=== PATIENT | female | born 1950 | race Caucasian/White ===

== ENCOUNTER 2022-02-19 10:30 | Outpatient (REF) | payer MEDICARE, SELFPAY ==
[2022-02-19 14:09] LABS: Appearance Urine HAZY; Color Urine YELLOW; Glucose Urine UA 500 MG/DL (NEG); Leukocyte Esterase Urine 1+ (NEG); Nitrite Urine POS (NEG); Specific Gravity - Urine 1.015 (1.005-1.025); Urine Blood NEG (NEG); Urine Ketones NEG (NEG); Urine Protein NEG (NEG-TRACE)
[2022-02-19 14:19] LABS: Microalbum/Creatinine Ratio Ur 115.8 ug/mg cr; Protein/Creatinine Ratio, Ur 0.23 (<0.2); Total Protein Urine Random 20 mg/dL (<12)
[2022-02-19 14:24] LABS: Hematocrit 43.9 % (37.0-47.0); Hemoglobin 13.8 g/dl (12.0-16.0); Mean Corpuscular HGB Conc 31.4 g/dl (31.0-35.0); Mean Corpuscular Hemoglobin 26.7 pg (27.0-33.0); Mean Corpuscular Volume 85.1 fL (80.0-98.0); Mean Platelet Volume 9.8 fL (9.4-12.3); Platelet Count 287 X10*3/uL (160-400); Red Blood Count 5.16 X10*6/uL (4.20-5.50); Red Cell Distribution Width 15.2 % (11.0-16.0); White Blood Count 7.7 X10*3/uL (4.8-10.8)
[2022-02-19 14:28] LABS: Albumin Level 4.5 g/dL (3.5-5.0); Anion Gap 17 (12-20); Blood Urea Nitrogen 32 mg/dL (9-16); Calcium 9.2 mg/dL (8.4-10.2); Carbon Dioxide 22 mmol/L (22-29); Chloride 104 mmol/L (96-108); Estimated Average Glucose 180 mg/dL; Estimated Glomerular Filt Rate 30; Hemoglobin A1c % 7.9 %; Magnesium 1.8 mg/dL (1.6-2.6); Phosphorus 3.3 mg/dL (2.7-4.5); Potassium 4.3 mmol/L (3.3-5.1); Sodium 139 mmol/L (135-145)
[2022-02-19 14:28] LABS: Bacteria Urine 4+ /LPF; Squamous Epithelial Cell Urine 1+ /LPF
[2022-02-19 14:29] LABS: RBC Urine 0 /HPF (0)
[2022-02-19 14:35] LABS: Alanine Aminotransferase 22 U/L (0-31); Albumin Level 4.5 g/dL (3.5-5.0); Alkaline Phosphatase 66 U/L (39-117); Anion Gap 16 (12-20); Aspartate Amino Transferase 19 U/L (5-31); Bilirubin Total 0.5 mg/dL (0.0-1.0); Blood Urea Nitrogen 31 mg/dL (9-16); Calcium 9.1 mg/dL (8.4-10.2); Carbon Dioxide 23 mmol/L (22-29); Chloride 105 mmol/L (96-108); Cholesterol 150 mg/dL; Estimated Glomerular Filt Rate 29; Glucose Random 114 mg/dL (60-115); HDL Cholesterol 43 mg/dL; LDL Cholesterol Calculated 74 mg/dl; Potassium 4.3 mmol/L (3.3-5.1); Sodium 140 mmol/L (135-145); Total Protein 7.8 g/dL (6.5-8.0); Triglycerides 167 mg/dL
[2022-02-19 14:59] LABS: Thyroid Stimulating Hormone 7.63 uIU/mL (0.32-4.0); Vitamin D 25-OH Total 60.7 ng/mL (>30)
[2022-02-22 20:16] LABS: Calcium (PTHI) 9.8 mg/dL (8.6-10.4); PTHI 84 pg/mL (16-77)
== END 2022-02-19 10:31 | disposition home or self-care (01) ==
LOC: HO.HMGCLDS 10:30
PROVIDERS: Absent Provider Internal Medicine Nephrology; PCP Internal Medicine; Visit Provider Internal Medicine
DX: E03.8 Other specified hypothyroidism (principal); E11.65 Type 2 diabetes mellitus with hyperglycemia; E11.22 Type 2 diabetes mellitus with diabetic chronic kidney disease; I12.9 Hypertensive chronic kidney disease with stage 1 through stage 4 chronic kidney disease, or unspecified chronic kidney disease; N18.32 Chronic kidney disease, stage 3b; E78.00 Pure hypercholesterolemia, unspecified; G56.03 Carpal tunnel syndrome, bilateral upper limbs; E11.51 Type 2 diabetes mellitus with diabetic peripheral angiopathy without gangrene; N25.0 Renal osteodystrophy
CPT/HCPCS: 36415; 80051; 80053; 80061; 81001; 82040; 82043; 82306; 82310; 82565; 83036; 83735; 83970; 84100; 84156; 84443; 84520; 85027; 87086

== ENCOUNTER 2022-04-26 11:07 | Outpatient (REF) | payer MEDICARE, SELFPAY ==
[2022-04-26 13:30] LABS: MANUAL DIFF FLAG NO
[2022-04-26 13:37] LABS: Basophils Absolute Auto 0.1 X10*3/uL (0.0-0.2); Basophils Percent Auto 0.9 % (0-2); Eosinophils Absolute Auto 0.1 X10*3/uL (0.0-0.4); Eosinophils Percent Auto 1.8 % (0-4); Hematocrit 43.9 % (37.0-47.0); Hemoglobin 13.9 g/dl (12.0-16.0); Imm Gran Abs Auto 0.03 X10*3/uL (0.00-0.03); Imm Gran Pct Auto 0.4 % (0.0-0.4); Lymphocytes Absolute Auto 1.7 X10*3/uL (1.2-4.9); Lymphocytes Percent Auto 23.2 % (20-40); Mean Corpuscular HGB Conc 31.7 g/dl (31.0-35.0); Mean Corpuscular Volume 85.2 fL (80.0-98.0); Mean Platelet Volume 9.9 fL (9.4-12.3); Monocytes Absolute Auto 0.7 X10*3/uL (0.1-1.2); Monocytes Percent Auto 9.2 % (2-11); Neutrophils Absolute Auto 4.8 x10*3/uL (2.0-8.3); Neutrophils Percent Auto 64.5 % (45-73); Platelet Count 256 X10*3/uL (160-400); Red Blood Count 5.15 X10*6/uL (4.20-5.50); Red Cell Distribution Width 14.8 % (11.0-16.0); White Blood Count 7.4 X10*3/uL (4.8-10.8)
[2022-04-26 13:59] LABS: Estimated Average Glucose 180 mg/dL; Hemoglobin A1c % 7.9 %
[2022-04-26 14:18] LABS: Alanine Aminotransferase 26 U/L (0-31); Albumin Level 4.5 g/dL (3.5-5.0); Alkaline Phosphatase 61 U/L (39-117); Anion Gap 21 (12-20); Aspartate Amino Transferase 30 U/L (5-31); Bilirubin Total 0.4 mg/dL (0.0-1.0); Blood Urea Nitrogen 37 mg/dL (9-16); Calcium 9.9 mg/dL (8.4-10.2); Carbon Dioxide 22 mmol/L (22-29); Chloride 101 mmol/L (96-108); Estimated Glomerular Filt Rate 28; Glucose Random 121 mg/dL (60-115); Potassium 4.6 mmol/L (3.3-5.1); Sodium 139 mmol/L (135-145); Total Protein 7.9 g/dL (6.5-8.0)
[2022-04-26 14:24] LABS: Thyroid Stimulating Hormone 6.37 uIU/mL (0.32-4.0)
[2022-04-26 14:25] LABS: Vitamin B12 533 pg/mL (200-900)
== END 2022-04-26 11:08 | disposition home or self-care (01) ==
LOC: HO.10HDL 11:07
PROVIDERS: Visit Provider Internal Medicine
DX: Z00.01 Encounter for general adult medical examination with abnormal findings (principal); E78.00 Pure hypercholesterolemia, unspecified; I12.9 Hypertensive chronic kidney disease with stage 1 through stage 4 chronic kidney disease, or unspecified chronic kidney disease; E11.22 Type 2 diabetes mellitus with diabetic chronic kidney disease; N18.9 Chronic kidney disease, unspecified; E03.8 Other specified hypothyroidism
CPT/HCPCS: 36415; 80053; 82607; 83036; 84443; 85025

== ENCOUNTER 2022-06-10 11:26 | Outpatient (REF) | payer MEDICARE, SELFPAY ==
--- NOTE | 2022-06-10 08:00 | EMG_ITS ---
Bilateral median and ulnar motor and sensory studies were performed. Bilateral radial sensory studies were performed and paraspinal muscles were tested with a needle. IMPRESSION: 1. [id number] bilateral median neuropathy across carpal tunnel. 2. 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 MD THUY Mc/PATRICIA / [id number]
== END 2022-06-10 11:27 | disposition home or self-care (01) ==
LOC: HO.NEURO 11:26
PROVIDERS: PCP Internal Medicine; Visit Provider Internal Medicine
DX: G56.03 Carpal tunnel syndrome, bilateral upper limbs (principal)
CPT/HCPCS: 95886; 95911

== ENCOUNTER → 2022-08-24 10:39 | Outpatient (BNVA) | payer MEDICARE, SELFPAY | PROVIDERS: PCP Internal Medicine; Visit Provider Orthopaedic Surgery | DX: G56.03 Carpal tunnel syndrome, bilateral upper limbs (principal); G56.23 Lesion of ulnar nerve, bilateral upper limbs; E11.9 Type 2 diabetes mellitus without complications | CPT/HCPCS: 99202 ==

== ENCOUNTER → 2022-09-28 14:38 | Outpatient (BNVA) | payer MEDICARE, SELFPAY | PROVIDERS: PCP Internal Medicine; Visit Provider Orthopaedic Surgery | DX: G56.03 Carpal tunnel syndrome, bilateral upper limbs (principal); G56.23 Lesion of ulnar nerve, bilateral upper limbs; E11.9 Type 2 diabetes mellitus without complications | CPT/HCPCS: 99212 ==

== ENCOUNTER 2022-10-01 05:56 | Day surgery (SDC) | payer MEDICARE, SELFPAY ==
[2022-10-01] VITALS (7 sets, daily range): BP systolic 103–174; BP diastolic 47–61; PULSE 56–59; RESP 16–18; TEMP 36.7–36.8; O2SAT 95–98; BMI 38.0
[2022-10-01 06:12] LABS: Glucose, Whole Blood 137 mg/dL (60-115)
--- NOTE | 2022-10-01 07:25 | HO.ANESPROP2 ---
HPI - Anesthesia Eval Consult details Narrative: morbid obesity, cubital tunnel release PMFSH Active Problems Active Problems: All Active Problems (Updated 08/24/22 @ 11:47 by Jacob Garcia) Diabetes mellitus (Acute) Cubital tunnel syndrome on right (Acute) Cubital tunnel syndrome on left (Acute) Carpal tunnel syndrome of right wrist (Acute) Carpal tunnel syndrome of left wrist (Acute) Past Medical History Medical History Diabetes Dry eyes High blood pressure High cholesterol Hx of thyroid disease Kidney disease Family History Family history of problems with anesthesia: No Surgical History History of Problems with Anesthesia: No Social History Social History Patient Tobacco Use Status: Never used Tobacco Are you DNR?: No Advance Directives: No Advance Directives Information Provided: Yes Nutrition Risks: No Nutritional Risk Current occupational status: retired and disabled 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 Meds Allergies Allergy/AdvReac Type Severity Reaction Status Date / Time codeine [CODEINE] Allergy Intermediate DIAPHORESIS/N/V/DIFFICULTY Verified 10/01/22 06:38 BREATHING/HIVES Penicillins [PENICILLINS] Allergy Intermediate RASH Verified 10/01/22 06:38 /ITCH/DIFFICULTY BREATHING Sulfa (Sulfonamide Allergy Intermediate RASH/ITCH/DIFFICULTY Verified 10/01/22 06:38 Antibiotics) BREATHING [SULFA (SULFONAMIDE ANTIBIOTICS)] Home Medications Medication Instructions Recorded Confirmed Last Taken Type aspirin 81 mg tablet,delayed 81 mg PO DAILY 08/24/22 10/01/22 History release (Adult Low Dose Aspirin) atorvastatin 20 mg tablet 20 mg PO DAILY 08/24/22 10/01/22 History chlorthalidone 25 mg tablet 25 mg PO DAILY 08/24/22 Unknown History dapagliflozin 5 mg tablet (Farxiga) mg PO 08/24/22 Unknown History gabapentin 300 mg capsule mg PO 08/24/22 10/01/22 History insulin lispro 100 unit/mL subcut 08/24/22 Unknown History subcutaneous pen (Humalog KwikPen (U-100) Insulin) latanoprost 0.005 % eye drops 0 drp ophthalmic (eye) 08/24/22 10/01/22 History levothyroxine 112 mcg tablet 112 mcg PO DAILY 08/24/22 10/01/22 History losartan 50 mg tablet 50 mg PO BID 08/24/22 Unknown History metoprolol succinate 100 mg 100 mg PO DAILY 08/24/22 10/01/22 History tablet,extended release 24 hr nifedipine 90 mg tablet,extended 90 mg PO DAILY 08/24/22 10/01/22 History release 24 hr nitroglycerin 0.3 mg sublingual mg sublingual 08/24/22 Unknown History tablet omeprazole 40 mg capsule,delayed 40 mg PO BID 08/24/22 10/01/22 History release sertraline 50 mg tablet 50 mg PO DAILY 08/24/22 10/01/22 History Exam Exam Date and Time: October 01, 2022 0725 Height,Weight and Vital Signs: Height 4 ft 10 in Weight 82.554 kg Last Vital Signs Temp 98.3 F 10/01/22 06:03 Pulse 58 10/01/22 06:59 Resp 18 10/01/22 06:59 BP 144/50 H 10/01/22 06:59 Pulse Ox 97 10/01/22 06:59 O2 Del Method 10/01/22 06:59 Pertinent Lab Results Pertinent Lab Results: Laboratory Tests 10/01/22 06:09 POC Glucose 137 H Airway Mallampati Class: II TM Dist: <=3cm Neck ROM: Limited Heart: rrr Lungs: cta Assessment and Plan Final Anesthetic Review Family History of Problems with Anesthesia: No History of Problems with Anesthesia: No NPO: Yes ASA Class: III Final Preanesthetic Review: No Changes in Pt Med Stat, Meds/Allgs Chart Reviewed, Consent Obtained/Reviewed and Anes Risks/Benef Reviewed Patient Risk: Intermediate Procedure Risk: Intermediate Anesthetic Plan Anesthetic Plan: GA, Regional Block and Agree w/ Assess. and Plan Disposition: Standard PACU
--- NOTE | 2022-10-01 07:47 | MHC.SHP ---
Pre-Procedural Eval Section A Date of Service: 10/01/22 The patient is an INPATIENT: No Changes since office visit: No Cold of Flu in the past 2 weeks, No New Medical Problems, No Changes in Medication and No Patient answered all questions The History & Physical has been completed within 30 days and I have reviewed it.: Yes Section B Chief Complaint: Carpal tunnel syndrome, left upper limb,lesion Allergies: Allergies Allergy/AdvReac Type Severity Reaction Status Date / Time codeine [CODEINE] Allergy Intermediate DIAPHORESIS/N/V/DIFFICULTY Verified 10/01/22 06:38 BREATHING/HIVES Penicillins [PENICILLINS] Allergy Intermediate RASH Verified 10/01/22 06:38 /ITCH/DIFFICULTY BREATHING Sulfa (Sulfonamide Allergy Intermediate RASH/ITCH/DIFFICULTY Verified 10/01/22 06:38 Antibiotics) BREATHING [SULFA (SULFONAMIDE ANTIBIOTICS)] Plan I have reviewed the history and physical and performed a pertinent physical examination on my patient. No changes have occurred unless specified. Time Spent With Patient Time: Total time managing care of this patient today ____ minutes.
--- NOTE | 2022-10-01 07:48 | W.PM.OPN ---
Operative Note Operative Note Date of Service: 10/01/22 Narrative: Operative Note Narrative: Preop diagnosis: 1. left Cubital tunnel syndrome 2. Left carpal tunnel syndrome Postop diagnosis: Same Procedure: 1. left Cubital Tunnel Release 2. Left carpal tunnel release Surgeon: Agnieszka Alves MD Anesthesia: General Anesthesia Findings: Thickening and fibrosis about the ulnar nerve at the cubital tunnel Implants: none Tourniquet time: 31 minutes EBL: 5.0 ml Specimen: none Drains: None Complications: None Disposition: Brought to the recovery room in stable condition Plan: Follow-up in 10-14 days for wound check, and suture removal Indications: The patient is 71 years old with left cubital tunnel syndrome and left carpal tunnel syndrome . The risks and benefits of operative treatment, including but not limited to risk of damage to blood vessels, nerves, tendons, infection, recurrence, persistent pain or numbness, incomplete resolution of preoperative symptoms, or need for further surgery were discussed with the patient and they wished to proceed with surgery. Procedure: Once consent was obtained patient was brought back to the operating suite and placed in the operating table in a supine position. Perioperative antibiotics and anesthesia was administered by the anesthesia team. The limb was prepped and draped in a standard surgical fashion, and a sterile tourniquet applied to the proximal aspect of the left upper extremity. The limb was elevated exsanguinated with Esmarch bandage and the tourniquet inflated to 250 mm of mercury for a total tourniquet time of 31 minutes. Once assured that we had a good block, a 2.0 cm longitudinal incision was made centered over the left carpal tunnel. The incision was made through the skin to the subcutaneous tissues using a #15 blade. Dissection was made down to the level of the transverse carpal ligament with care being taken to protect the palmar cutaneous nerve. Once the transverse carpal ligament was clearly visualized, a longitudinal incision was made in the transverse carpal ligament 1st using a #15 blade, then using tenotomy scissors under direct visualization. Care was taken to look for and protect the motor branch of the median nerve when seen in this area. Once satisfied with our carpal tunnel release the wound was irrigated with normal saline. A 6 cm gently curved but longitudinally oriented incision was made centered over the cubital tunnel of the left upper extremity. Incision was made through the skin to the subcutaneous tissues using a # 15 Blade. I then dissected down to the level of the medial epicondyle and the cubital tunnel using tenotomy scissors. Care was taken to protect the lateral antebrachial cutaneous nerve. The ulnar nerve was identified just posterior to the medial intermuscular septum. The ulnar nerve was released in a proximal to distal direction using tenotomy in iris scissors while directly visualizing and protecting the ulnar nerve. Thickening and fibrosis was appreciated about the ulnar nerve as it passed through the cubital tunnel. The ulnar nerve was assessed as I passed the elbow through full flexion and extension and was found to remain stable within its groove. At this point the tourniquet was deflated and hemostasis obtained with a brief period of local pressure and bipolar electrocautery. The wound was copiously irrigated with normal saline. The subcutaneous layer was closed with 4-0 Vicryl suture, and the skin edges were reapproximated with 5-0 nylon suture. The wound was infiltrated with some 0.25% plain Marcaine for postop pain control and sterile dressings were applied. The patient appears to have tolerated the procedure well and with no complications. All digits were well vascularized conclusion of the case.
== END 2022-10-01 10:26 | disposition home or self-care (01) ==
PROVIDERS: PCP Internal Medicine; Visit Provider Orthopaedic Surgery
PROC: (CPT 64718; principal; 2022-10-01 07:30)
PROC: (CPT 64721; 2022-10-01 07:30)
DX: G56.02 Carpal tunnel syndrome, left upper limb (principal); G56.22 Lesion of ulnar nerve, left upper limb; E11.22 Type 2 diabetes mellitus with diabetic chronic kidney disease; I12.9 Hypertensive chronic kidney disease with stage 1 through stage 4 chronic kidney disease, or unspecified chronic kidney disease; N18.30 Chronic kidney disease, stage 3 unspecified; Z79.4 Long term (current) use of insulin; Z79.899 Other long term (current) drug therapy; Z79.82 Long term (current) use of aspirin; Z88.2 Allergy status to sulfonamides; Z88.0 Allergy status to penicillin; Z88.8 Allergy status to other drugs, medicaments and biological substances
CPT/HCPCS: 64721; 64718; 82947; J1100; J1885; J2405; J2795

== ENCOUNTER → 2022-10-13 12:40 | Outpatient (BNVA) | payer MEDICARE, SELFPAY | PROVIDERS: PCP Internal Medicine; Visit Provider Orthopaedic Surgery ==

== ENCOUNTER → 2022-10-27 13:11 | Outpatient (BNVA) | payer MEDICARE, SELFPAY | PROVIDERS: PCP Internal Medicine; Visit Provider Physician Assistant ==

== ENCOUNTER → 2022-12-01 11:58 | Outpatient (BNVA) | payer MEDICARE, SELFPAY | PROVIDERS: PCP Internal Medicine; Visit Provider Orthopaedic Surgery | DX: Z47.89 Encounter for other orthopedic aftercare (principal); G56.01 Carpal tunnel syndrome, right upper limb; G56.21 Lesion of ulnar nerve, right upper limb; R20.0 Anesthesia of skin; E11.9 Type 2 diabetes mellitus without complications; Z98.890 Other specified postprocedural states | CPT/HCPCS: 99212 ==

== ENCOUNTER 2022-12-02 09:30 | Outpatient (RCR) | payer MEDICARE, SELFPAY ==
--- NOTE | 2022-11-10 10:24 | MHC.OT.EP ---
[address] [phone] Occupational Therapy Plan of Care Patient Name: Molly Teixeira Date of Evaluation: 11/10/22 Diagnosis: Left CTR and ulnar nerve transposition Pain Location: Pain L elbow 7/10 Pain L wrist 9/10 Best: 4/10 Pain Score: 7 Pain Scale Used: Numeric (0 - 10) Aggravating Factors: Weather (rain), lifting and carrying Alleviating Factors: Tylenol Assessment: Ms. Teixeira is a 71 y/o female s/p left carpal tunnel and cubital tunnel release on 10/01/22. Pt presents with continued L hand and elbow pain ranging from 4-9/10. She states her numbness has improved except for the tip of her left thumb. ROM in the elbow is good with pain at end ranges of supination/pronation. Gross grasp on the left is down (5# compared to 30# on the right). She is fairly hypersensitive at both scar sites and was educated in scar massage and desensitizing techniques for home. A 59% limitation was reported per the Quick DASH assessment. Ms. Teixeira would benefit from skilled OT services to address noted barriers and assist in return to PLOF. Frequency and Duration: The patient will be seen 2x/wk for 6 weeks Short Term Goals: Decrease pain in left hand/elbow to 4/10 IND with scar management IND with thermal modalities for pain mgt Improve L wrist AROM to 35/55 Snf Goals: Pain free with BADL's/IADL's IND with progression of HEP Improve L gross grasp >15# L wrist AROM WFL's Quick DASH <25% Treatment Plan: Therapeutic Exercise Therapeutic Activity Home Exercise Program Patient Education Desensitization/Sensory Re-ed Edema Control Ultrasound Iontophoresis Paraffin Fluidotherapy MHP Cold Packs Soft Tissue Mobilization Kinesiotaping Electronically Signed By: Shanel Mcgarry MS OTR/L Please Sign and return to therapist. Thank you once again for your referral.
== END 2023-01-18 13:32 | disposition home or self-care (01) ==
LOC: HO.OT 09:30
PROVIDERS: PCP Internal Medicine; Visit Provider Physician Assistant
DX: G56.22 Lesion of ulnar nerve, left upper limb (principal); G56.02 Carpal tunnel syndrome, left upper limb
CPT/HCPCS: 97035; 97110; 97140; 97165

== ENCOUNTER 2024-01-17 11:54 | Emergency (ER) | payer MEDICARE, SELFPAY ==
[2024-01-17 12:31] VITALS: BP 132/74; PULSE 63; RESP 18; TEMP 36.2; O2SAT 98; BMI 36.2
--- NOTE | 2024-01-17 12:33 | ED.GENADULT ---
HPI - General Adult General Chief complaint: Abdominal Pain Stated complaint: multiple symptoms Time Seen by Provider: 01/17/24 22:40 Source: patient Mode of arrival: ambulatory Limitations: no limitations History of Present Illness ED Provider: leni TOBIN narrative: Patient's history of fibromyalgia comes here with multiple complaints pain all over the body lower back abdominal pain with cramping shoulder pain headache unable to sleep patient does have history of sleep apnea unable to use CPAP machine patient also does have history of depression Related Data Home Medications ?Medication ?Instructions ?Recorded ?Confirmed aspirin 81 mg tablet,delayed 81 mg PO DAILY 08/24/22 release (Adult Low Dose Aspirin) atorvastatin 20 mg tablet 20 mg PO DAILY 08/24/22 chlorthalidone 25 mg tablet 25 mg PO DAILY 08/24/22 dapagliflozin propanediol 5 mg mg PO 08/24/22 tablet (Farxiga) gabapentin 300 mg capsule mg PO 08/24/22 insulin lispro 100 unit/mL subcut 08/24/22 subcutaneous pen (Humalog KwikPen (U-100) Insulin) latanoprost 0.005 % eye drops 0 drp ophthalmic (eye) 08/24/22 levothyroxine 112 mcg tablet 112 mcg PO DAILY 08/24/22 losartan 50 mg tablet 50 mg PO BID 08/24/22 metoprolol succinate 100 mg 100 mg PO DAILY 08/24/22 tablet,extended release 24 hr nifedipine 90 mg tablet,extended 90 mg PO DAILY 08/24/22 release 24 hr nitroglycerin 0.3 mg sublingual mg sublingual 08/24/22 tablet omeprazole 40 mg capsule,delayed 40 mg PO BID 08/24/22 release sertraline 50 mg tablet 50 mg PO DAILY 08/24/22 Previous Rx's ?Medication ?Instructions ?Recorded oxycodone-acetaminophen 5 mg-325 1 tab PO Q6H PRN pain #15 tabs 10/01/22 mg tablet tramadol 50 mg tablet 50 mg PO Q6H PRN pain #20 tabs 01/18/24 Allergies Allergy/AdvReac Type Severity Reaction Status Date / Time codeine [CODEINE] Allergy Intermediate DIAPHORESIS/N/V/DIFFICULTY Verified 01/17/24 12:33 BREATHING/HIVES Penicillins [PENICILLINS] Allergy Intermediate RASH Verified 01/17/24 12:33 /ITCH/DIFFICULTY BREATHING Sulfa (Sulfonamide Allergy Intermediate RASH/ITCH/DIFFICULTY Verified 01/17/24 12:32 Antibiotics) BREATHING [SULFA (SULFONAMIDE ANTIBIOTICS)] Review of Systems Review of Systems: Yes all other systems are reviewed and are negative [facility] Past Medical History Medical History Kidney disease Diabetes Dry eyes High blood pressure High cholesterol Hx of thyroid disease Social History Social History Patient Tobacco Use Status: Never used Tobacco Advance Directives: No Advance Directives Information Provided: No Do you have a plan to hurt others: No Plan Current occupational status: retired and disabled 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 Physical Exam ED Vital Signs: Vital Signs - 24 hr 01/17/24 12:31 01/17/24 22:07 01/18/24 00:46 Temperature 97.1 F 98.1 F 97.8 F Pulse Rate 63 64 62 Respiratory Rate 18 18 18 Blood Pressure 132/74 130/111 H 140/48 H Pulse Oximetry 98 98 96 Oxygen Delivery Method Room Air Room Air Room Air BMI result Body Mass Index 36.2 Appearance: Alert. Oriented X3. No acute distress. Eyes: PERRLA, No Nystagmus ENT: Pharynx normal. Oral Mucosa moist Neck: Normal inspection. Neck supple. CVS: Normal heart rate and rhythm. Pulses normal. Respiratory: No respiratory distress. Equal air entry bilateral, no wheezing/rales/rhonchi Abdomen: Soft and nontender. Bowel sounds are present, no mass palpable, no CVA tenderness Skin: Skin warm and dry. Normal skin color. Normal skin turgor. Extremities: No lower extremity edema. No calf tenderness Back: Diffuse tenderness in lower back and upper back Neuro: Oriented X 3. No motor deficit. No sensory deficit.No cerebellar signs , cranial nerves II-XII intact Course Course Course Narrative: This is a Rapid Medical Examination (RME) performed by Dewayne Tay PA-C in triage. Full HPI, ROS, assessment and treatment plan per primary provider in the Main ED. 73 year old female with past medical history of diabetes here with multiple complaints. She complains of shoulder pain abdominal cramping, headache, diffuse body aches since 12/29/2023. States they have not improved. She has not taking any [id number] medications for this at home. Denies sick contacts. called PCP, talked to office secretary who advised she come to the ED as they had no openings. Well-appearing female in triage. RRR. Abdomen soft, nondistended, nontender to palpation. Ambulating with steady gait. Plan: Labs, UA, viral serology ordered Medications Administered Discontinued Medications Generic Name Dose Route Start Last Admin Trade Name Gonzalez PRN Reason Stop Dose Admin Tramadol HCl 50 mg 01/17/24 23:03 01/17/24 23:38 Tramadol Hcl 50 Mg Tablet PO 01/17/24 23:04 50 mg ONCE ONE Administration Medical Decision Making Medical Decision Making MDM Narrative: Patient's history of fibromyalgia with multiple complaints of pain all over the body for last 3 weeks labs are stable with chronic renal disease advised patient will take tramadol for pain and follow with PCP Differential Diagnosis Differential Diagnoses: The differential diagnosis associated with the presentation includes Lab Data [facility] Lab Attestation statement: I reviewed the patient's lab results. 01/17/24 12:57 01/17/24 12:57 Labs: Lab Results 01/17/24 01/17/24 01/17/24 Range/Units 12:57 13:28 22:55 WBC 7.9 (4.8-10.8) X10*3/uL RBC 4.55 (4.20-5.50) X10*6/uL Hgb 12.1 (12.0-16.0) g/dl Hct 37.5 (37.0-47.0) % MCV 82.4 (80.0-98.0) fL MCH 26.6 L (27.0-33.0) pg MCHC 32.3 (31.0-35.0) g/dl RDW 15.5 (11.0-16.0) % Plt Count 225 (160-400) X10*3/uL MPV 8.9 L (9.4-12.3) fL Immature Gran % (Auto) 0.3 (0.0-0.4) % Neut % (Auto) 68.5 (45-73) % Lymph % (Auto) 20.9 (20-40) % [place]ner % (Auto) 7.5 (2-11) % Eos % (Auto) 1.9 (0-4) % Baso % (Auto) 0.9 (0-2) % Lymph # (Auto) 1.7 (1.2-4.9) X10*3/uL [place] # (Auto) 0.6 (0.1-1.2) X10*3/uL Eos # (Auto) 0.2 (0.0-0.4) X10*3/uL Baso # (Auto) 0.1 (0.0-0.2) X10*3/uL Abs Immat Gran (auto) 0.02 (0.00-0.03) X10*3/uL Absolute Neuts (auto) 5.4 (2.0-8.3) x10*3/uL Absolute Nucleated RBC 0.000 (0.0-0.012) X10*3/uL Nucleated RBC % (auto) 0.0 (0.0-0.2) /100WBC Sodium 139 (135-145) mmol/L Potassium 3.9 (3.3-5.1) mmol/L Chloride 108 (96-108) mmol/L Carbon Dioxide 23 (22-29) mmol/L Anion Gap 12 (12-20) BUN 34 H (9-16) mg/dL Creatinine 1.60 H (0.5-1.4) mg/dL Estim Creat Clear Calc 27.2 Estimated GFR 32 Random Glucose 129 H (60-115) mg/dL Calcium 9.9 (8.4-10.2) mg/dL Magnesium 1.8 (1.6-2.6) mg/dL Total Bilirubin 0.3 (0.0-1.0) mg/dL AST 13 (5-31) U/L ALT 13 (0-31) U/L Alkaline Phosphatase 53 (39-117) U/L Total Creatine Kinase 90 (26-140) U/L Total Protein 7.5 (6.5-8.0) g/dL Albumin 4.4 (3.5-5.0) g/dL Lipase 43 (8-78) U/L Urine Color Yellow Urine Appearance Clear Urine pH 5.0 (5.0-9.0) Ur Specific [place] 1.020 (1.005-1.025) Urine Protein 30 (1+) H (Neg-Trace) mg/dL Urine Glucose (UA) 250 H (Negative) mg/dL Urine Ketones Negative (Negative) mg/dL Urine Blood Negative (Negative) Urine Nitrite Negative (Negative) Ur Leukocyte Esterase Trace H (Negative) Urine RBC 0-2 (0-2) /HPF Urine WBC 0-5 (0-5) /HPF Ur Squamous Epith Cells 3-5 (0-2) /HPF Urine Bacteria None Seen (None Seen) Hyaline Casts 0-2 (0-2) /LPF Influenza Type A (PCR) NEGATIVE (Negative) Influenza Type B (PCR) NEGATIVE (Negative) RSV RNA Qual (PCR) NEGATIVE (Negative) SARS-CoV-2 RNA (RT-PCR) NEGATIVE (Negative) Discharge Plan Discharge Clinical Impression: Chronic fatigue syndrome with fibromyalgia Patient Disposition: Home, Self-Care Instructions: Fibromyalgia (ED) Additional Instructions: Continue medications as prescribed by your PCP Start taking tramadol 1 tablet every 8 hours as needed for the pain Follow with your PCP Prescriptions: New tramadol 50 mg tablet 50 mg PO Q6H PRN (Reason: pain) Qty: 20 0RF No Action oxycodone-acetaminophen 5-325 mg tablet 1 tab PO Q6H PRN (Reason: pain) Qty: 15 0RF Rx Instructions: Partial Fill upon patient request. omeprazole 40 mg capsule,delayed release(DR/EC) 40 mg PO BID levothyroxine 112 mcg tablet 112 mcg PO DAILY metoprolol succinate 100 mg tablet extended release 24 hr 100 mg PO DAILY aspirin [Adult Low Dose Aspirin] 81 mg tablet,delayed release (DR/EC) 81 mg PO DAILY chlorthalidone 25 mg tablet 25 mg PO DAILY losartan 50 mg tablet 50 mg PO BID nifedipine 90 mg tablet extended release 24hr 90 mg PO DAILY gabapentin 300 mg capsule PO atorvastatin 20 mg tablet 20 mg PO DAILY insulin lispro [Humalog KwikPen Insulin] 100 unit/mL insulin pen subcut sertraline 50 mg tablet 50 mg PO DAILY latanoprost 0.005 % drops 0 drp ophthalmic (eye) Farxiga 5 mg tablet PO nitroglycerin 0.3 mg tablet, sublingual sublingual Print Language: Faroese
[2024-01-17 13:01] LABS: MANUAL DIFF FLAG NO
[2024-01-17 13:03] LABS: Basophils Absolute Auto 0.1 X10*3/uL (0.0-0.2); Basophils Percent Auto 0.9 % (0-2); Eosinophils Absolute Auto 0.2 X10*3/uL (0.0-0.4); Eosinophils Percent Auto 1.9 % (0-4); Hematocrit 37.5 % (37.0-47.0); Hemoglobin 12.1 g/dl (12.0-16.0); Imm Gran Abs Auto 0.02 X10*3/uL (0.00-0.03); Imm Gran Pct Auto 0.3 % (0.0-0.4); Lymphocytes Absolute Auto 1.7 X10*3/uL (1.2-4.9); Lymphocytes Percent Auto 20.9 % (20-40); Mean Corpuscular HGB Conc 32.3 g/dl (31.0-35.0); Mean Corpuscular Hemoglobin 26.6 pg (27.0-33.0); Mean Corpuscular Volume 82.4 fL (80.0-98.0); Mean Platelet Volume 8.9 fL (9.4-12.3); Monocytes Absolute Auto 0.6 X10*3/uL (0.1-1.2); Monocytes Percent Auto 7.5 % (2-11); Neutrophils Absolute Auto 5.4 x10*3/uL (2.0-8.3); Neutrophils Percent Auto 68.5 % (45-73); Platelet Count 225 X10*3/uL (160-400); Red Blood Count 4.55 X10*6/uL (4.20-5.50); Red Cell Distribution Width 15.5 % (11.0-16.0); White Blood Count 7.9 X10*3/uL (4.8-10.8)
[2024-01-17 13:22] LABS: Alanine Aminotransferase 13 U/L (0-31); Albumin Level 4.4 g/dL (3.5-5.0); Alkaline Phosphatase 53 U/L (39-117); Anion Gap 12 (12-20); Aspartate Amino Transferase 13 U/L (5-31); Bilirubin Total 0.3 mg/dL (0.0-1.0); Blood Urea Nitrogen 34 mg/dL (9-16); Calcium 9.9 mg/dL (8.4-10.2); Carbon Dioxide 23 mmol/L (22-29); Chloride 108 mmol/L (96-108); Creatinine Clr Calc Pharmacy 27.2; Estimated Glomerular Filt Rate 32; Glucose Random 129 mg/dL (60-115); Lipase 43 U/L (8-78); Magnesium 1.8 mg/dL (1.6-2.6); Potassium 3.9 mmol/L (3.3-5.1); Sodium 139 mmol/L (135-145); Total Protein 7.5 g/dL (6.5-8.0)
[2024-01-17 14:12] LABS: Influenza A PCR NEGATIVE (Negative); Influenza B PCR NEGATIVE (Negative); Resp Syncy Virus RNA Qual PCR NEGATIVE (Negative); SARS COV2 PCR INHOUSE NEGATIVE (Negative)
[2024-01-17 22:07] VITALS: BP 130/111; PULSE 64; RESP 18; TEMP 36.7; O2SAT 98
[2024-01-17 23:07] LABS: Appearance Urine Clear; Color Urine Yellow; Glucose Urine UA 250 mg/dL (Negative); Leukocyte Esterase Urine Trace (Negative); Nitrite Urine Negative (Negative); UMIC TRIGGER UACC YES; Urine Blood Negative (Negative); Urine Ketones Negative (Negative); Urine Protein 30 (1+) mg/dL (Neg-Trace)
[2024-01-17] MEDS: traMADoL HCL 50 MG TABLET PO (23:38)
[2024-01-17 23:58] LABS: Bacteria Urine None Seen (None Seen); Hyaline Casts Urine 0-2 /LPF (0-2); RBC Urine 0-2 /HPF (0-2); WBC Urine 0-5 /HPF (0-5)
[2024-01-18 00:46] VITALS: BP 140/48; PULSE 62; RESP 18; TEMP 36.6; O2SAT 96
[2024-01-18 02:08] VITALS: BP 140/48; PULSE 18; RESP 18; TEMP 36.6; O2SAT 96
== END 2024-01-18 01:00 | disposition home or self-care (01) ==
PROVIDERS: Physician Assistant Medical; Emergency Provider Internal Medicine; PCP Internal Medicine
DX: G93.32 Myalgic encephalomyelitis/chronic fatigue syndrome (principal); M79.7 Fibromyalgia; Z79.899 Other long term (current) drug therapy; Z03.818 Encounter for observation for suspected exposure to other biological agents ruled out
CPT/HCPCS: 0241U; 36415; 80053; 81001; 81003; 82550; 83690; 83735; 85025; 99283; 99284

== ENCOUNTER 2024-06-26 08:00 | Outpatient (RCR) | payer MEDICARE, SELFPAY ==
--- NOTE | 2024-06-05 08:37 | MHC.PT.EP ---
[facility] [place] [facility] [place] [facility] [place] Office [address] [phone] F: [phone] F: [phone] F: [phone] F: [phone] Physical Therapy Plan of Care Date of Evaluation: 06/05/24 Date of Surgery: n/a Diagnosis: B trochanteric bursitis Assessment: Patient is a 73 year old female presenting to PT with complaints of pain in her B hips. Pt reports onset of pain began worsening a few months ago due to insidious onset. She presents today with impairments in pain, hip ROM, hip strength. Pt's current occupation is retired, with baseline physical activities including ambulating, stair negotiation, ADLs, sleeping. Pt expresses group home goal of reducing pain, and is motivated to work towards this in PT. Clinical presentation today is most consistent with signs and sx associated with B hip pain and pt will benefit from skilled PT 2 week x 4 weeks to address the following problems and impairments noted upon evaluation: pain, hip ROM, hip strength. These problems limit the patient with the following functional activities: ambulating, stair negotiation, ADLs, sleeping. The prescribed treatment plan of care is medically necessary. Co-morbidities of DM, HTN, hx severe L lower leg fx were identified and taken into considerations of plan of care. Pt was educated on HEP, role of PT, prognosis, POC. Frequency and Duration: The patient will be seen 2 x week x 4 weeks Short Term Goals: Pt will demonstrate hip ROM in available range with min to no pain in 2 weeks. Pt will demonstrate improved hip MMT strength by 1/3 grade in 2 weeks. Usp Goals: Pt will demonstrate improved LEFI score by 9 points in 4 weeks for improved functional mobility. Pt will demonstrate ability to ambulate with min to no pain in 4 weeks for return to PLOF. Pt will demonstrate ability to negotiate stairs with min to no pain in 4 weeks for improved access to her home. Treatment Plan: Modalities to reduce pain, spasms and effusion. Manual therapy to restore motion and function. Therapeutic exercise to improve strength and flexibility. Neuromuscular re-education for posture and balance. Therapeutic activities to return to functional activities of daily living. Electronically signed by: Birgit Atkinson, PT, DPT, ATC Please sign and return to therapist. Thank you for your referral.
== END 2024-06-26 08:42 | disposition home or self-care (01) ==
LOC: HO.PTCHIC 08:00
PROVIDERS: PCP Internal Medicine; Visit Provider Internal Medicine
DX: M70.61 Trochanteric bursitis, right hip (principal); M70.62 Trochanteric bursitis, left hip
CPT/HCPCS: 97110; 97140; 97161

== ENCOUNTER 2024-11-20 10:20 | Outpatient (REF) | payer MEDICARE, SELFPAY ==
--- NOTE | 2024-11-20 10:22 | EMG_ITS ---
Bilateral median and ulnar motor and sensory studies were performed. Bilateral radial sensory studies were performed and paraspinal muscles were tested with a needle. IMPRESSION: Mild to moderate bilateral median neuropathy across carpal tunnel. MD THUY Mc/PATRICIA / [id number]
--- OUTSIDE RECORDS SUMMARY | 2024-11-20 12:22 | XMS_ITS ---
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 Name Role Phone Cinthya Montiel Primary Care Provider Unavailab Quentin Garcia Unavailable [phone] Cinthya Montiel Unavailable Unavailable Allergies Allergen (clinical drug ingredient) Drug/Non Drug Allergy documented on EMR Reaction Allergy Type Onset Date Status amoxicillin Amoxicillin rash Drug Allergy Act nain sulfamethoxazole / trimethoprim Bactrim Unknown Drug Allergy Active codeine Codeine Unknown Drug Allergy Active REASON FOR VISIT At Risk Footcare, Painful Nail(s) aggrevated by shoes and causing difficulty standing/walking, Ingrown nail(s) Medications Medication SIG (Take, Route, Frequency, Duration) Notes Start Date End Date Status Urea 40 % 1 application to affected area on feet Externally Twice a day for 30 days 11/26/2022 Not-Taking Melatonin PRN Not-Taking Sertraline HCl Not-T aking Vitamin D Active Extra Depth Orthopedic Shoes, (1) Pair With (3) Pair Custom Heat Molded Multidensity Innersoles Dx: NIDDM/PVD(E11.51), Hammertoe Foot Deformity(M20.41,M20 .42), Preulcerative Skin Lesion(s)(L85.1) Wear Daily for 365 days Active Metoprolol Succinate 100 MG 1 capsule Orally Once a day for 30 day(s) Active Nitroglycerin 0.3 mg PRN Activ e NIFEdipine CR Osmotic Active Omeprazole 40 MG 1 capsule 30 minutes before morning meal Orally twice a day Active Sertraline HCl Zoloft Activ e Levothyroxine Sodium 112mg 1 x aday Active Loratadine Active Losartan Potassium 50 MG 1 tablet Orally Twice a day Active Latanoprost Active Lantus SoloStar 40 units Acti ve Chlorthalidone 25 MG 1 tablet in the morning with food Orally Once a day for 30 day(s) Active Claritin allergy Active Gabapentin 1 tablet Orally twice daily Active Farxiga 10 MG 1 tablet Orally Once a day Active HumaLOG KwikPen Acti ve Aspirin 81 81 MG 1 tablet Orally Once a day for 30 day(s) Active Atorvastatin Calcium 20 MG 1 tablet Orally Once a day for 30 day(s) Active Centrum MultiGummies Active Hydralazine-HCTZ Act nain Social History Tobacco Use: Social History Observation Description Date Details (start date - stop date) Never Smoker NA - NA Tobacco Use/Smoking Question Answer Notes Are you a: nonsmoker Additional Findings: Tobacco Non-User Aggressive non-smoker Tobacco use other than smoking: Question Answer Notes Are you an other tobacco user? No Vital Signs Height 8sr89ud in 04/03/2024 Weight 170 lbs 04/03/2024 BMI 35.53 kg/m2 04/03/2024 Procedures Procedure Date Ordered Date Performed Result Body Sit e 85329-PDYZYTE NAIL, 6 OR MORE 04/03/2024 N/A 94720-Obsuqgyb Plate 04/03/2024 N/A 34551-Wormziou Plate Each Additional 04/03/2024 N/A 89656-OOGL SKIN LESIONS, OVER 4 04/03/2024 N/A Encounters Encounter Location Date Provider Diagnosis [facility] [place] [address] [place] [address] 04/03/2024 Quentin Hendrix Type 2 diabetes mellitus with diabetic peripheral angiopathy without gangrene E11.51 ; Tinea unguium B35.1 ; Pain in right toe(s) M79.674 ; Pain in left toe(s) M79.675 and Ingrown nail L60.0 Assessments Encounter Date Diagnosis (ICD Code) Assessment Notes Treatment Notes Treatment Clinical Notes Section Notes 04/03/2024 Type 2 diabetes mellitus with diabetic peripheral angiopathy without gangrene (ICD-10 - E11.51) 04/03/2024 Tinea unguium (ICD-10 - B35.1) 04/03/2024 Pain in right toe(s) (ICD-10 - M79.674) 04/03/2024 Pain in left toe(s) (ICD-10 - M79.675) 04/03/2024 Ingrown nail (ICD-10 - L60.0) Plan Of Treatment Pending Test Test Name Order Date 14237-CYHMNFF NAIL, 6 OR MORE 04/03/2024 04063-Oognzzkp Plate 04/03/2024 02131-Sppqktwf Plate Each Additional 61035-VSVC SKIN LESIONS, OVER 4 04/03/20 24 Next Appt Details Follow Up: prn, Reason: Provider Name:Quentin Hendrix , 01/01/2025 09:00:00 AM, [address] [place] [address], [phone], Procedure Notes * Category Sub-Category Detail Notes Nail Avulsion Procedure A fine sterile e levator was placed between the eponychium, nail fold, and nail plate to separate the the structures. A sterile nail splitter, and/or sterile #316 blade, was then used to longitudinally section the nail along its entire length through the eponychium to the area under the nail fold. The offending portion of each nail was from the nail bed with a rolling action and then removed with a hemostat. No underlying bone was identified. A bacitracin sterile dressing was applied. Local wound aftercare instructions were discussed and dispensed. The patient was informed of both conservative and future surgical procedures to prevent recurrence (61283/32), DIABETES: Pt was advised as to the risk of delayed or nonhealing due to diabetes. Pt is to call the office with any questions, concerns, or complications, DIABETES: Matricectomy deferred due to diabetes risk Anesthesia was accomplished TOP ICALLY with Lidocaine Hydrochloride Jelly 2% Location Lateral nail border, TA, T5 Debride Nail 6-10 Nail debridement Performance o f this nail treatment by a nonprofessional would put this patients foot and overall health at risk. Therefore, nail debridement was performed extensively to reduce/remove overall nail length, girth, thickness, subungual debris, and necrotic tissue, by manual and/or electrical means through the use of a nail nipper and/or dremel-type cnc grinder, to a more viable healthy nail plate or bed tissue 6-10. Silver nitrate used for any petechial bleeding as necessary. Definitive antifungal treatment options have been reviewed and discussed with the patient. The patient chooses, no pharmaceutical tx (19437) Keratoma Treatment Parring or Cutting o f Benign Hyperkeratotic Lesion(s) 40774 ( >4 Lesions) - The Benign hyperkeratotic lesions, as described above were pared, and/or cut utilizing a sterile #15 blade, tissue nippers, and/or dremel, Q9 Progress Notes * Molly TEIXEIRA RDOB:[birth year] (73 yo F)Acc No.[id number]:04/03/2024 Progress Note Patient:?Molly Teixeira R Provider:?Quentin Hendrix DPM :1950???Age:73 Y???Sex:Female D ate:04/03/2024 Address:[address] [place], [place] [id number] Pcp:Cinthya Montiel Subjective: * Chief Complaints: * ???At Risk FootcarePainful N ail(s) aggrevated by shoes and causing difficulty standing/walkingIngrown nail(s) * HPI: ???At Risk footcare:?Pt States Last PCP Visit:?Date?01/31/2024 * ROS:?General/Constitutional:?Nausea?denies.?Vomiting?denies.?Hunger Thirst?denies.?Patient complaining of?sleep disturbance.?Loss appetite?denies.?Chills?denies.?Fatigue?denies.?Fever?denies.?Night Sweats?denies.?Unexplained weight loss?denies.?Unexplained weight gain?admits.?HEENTM:?Dentures?admits.?Dizziness?admits.?Glasses/contacts?admits.?Retinopathy?de nies.?Blurred/double vision?denies.?TMJ?admits.?Discharge/drainage?denies.?Implants?denies.?Sore throat?admits.?Dental implants?denies.?Hard of hearing ?denies.?Difficulty chewing/swallowing/speaking?denies.?Nose bleeds?denies.?Sore mouth?denies.?Respiratory:?On Oxygen?denies.?Pneumonia/pleurisy?denies.?Bronchitis?admits.?Emphysema?denies.?C oughing?denies.?Cough blood?denies.?Shortness of breath?admits.?Wheezing?admits.?Cardiovascular:?Pacemaker?denies.?MVP?denies.?WPW?denies.?CHF?denies.?Heart attack?denies.?Septal defect?denies.?Rapid beat?denies.?Chest pain ?denies.?Atrial Fib.?denies.?Murmur/Palpitations?denies.?Gastrointestinal:?Hemorrhoids?admits.?Stomach/Abdominal pain?admits.?Dark blood stool?denies.?Irritable bowel ?denies.?Constipation?denies.?Diarrhea?denies.?Hematology:?Swelling?admits.?Clots?denies.?Varicose Veins?denies.?Bruising?admits, on aspirin.?Bleeding problem?admits, on anticoagulants.?Genitourinary:?Blood urine?denies.?Frequent/Painfu/urination/bladder control?denies.?Kidney stones?denies.?Infection (UTI)?denies.?Nephropathy?denies.?sex trans dis (STD)?denies.?Prostate?denies.?Musculoskeletal:?Hammertoes?admits.?Bunions?denies.?Back Pain?admits.?Muscle Cramps/ Resting?admits.?Muscle cramps / walking?admits.?Generalized aches and pains?admits.?Weakness?denies.?Integ.:?Davis?denies.?Scars?admits.?Corns/calluses?admits.?Ingrown nails?admits.?Painful nails?admits.?Open Sores?denies.?Rashes?denies.?Neurologic:?Difficulty sleeping?admits.?Brain disorder?denies.?Numbness?denies.?Balance trouble?admits.?Confusion?denies.?Fainting/blackouts?admits.?Tingling?denies.?Tr emors?denies.? * Medical History:? * Surgical History:?breast bio psy teeth fractured leg x2 kidney stones tonsillectomy colonoscopy ndoscopy 2020 * Hospitalization/Major Diagno stic Procedure:?Denies Past Hospitalization * Family History:?Mother: dece ased, heart attack, high blood pressure, diagnosed with Diabetic - NIDDM.?Father: , diagnosed with Family history of arthritis.?Siblings: high blood pressure, kidney/liver disease, foot problems, diagnosed with Diabetic - NIDDM.? * Social History:?Tobacco Use:?Tobacco Use/Smoking?Are you a:?nonsmoker ?Additional Findings: Tobacco Non-User?Aggressive non-smoker ?Tobacco use other than smoking?Are you an other tobacco user??No ???Miscellaneous:?Caffeine: yes, frequency:, 2-3 cups per day. ?Children: yes. ?Exercise: yes, walking. ?Marital status: . ?Occupation: Retired- [employer] * Medications:?TakingHydralazi ne-HCTZ Aspirin 81 81 MG Tablet Delayed Release 1 tablet Orally Once a dayAtorvastatin Calcium 20 MG Tablet 1 tablet Orally Once a dayCentrum MultiGummies Chlorthalidone 25 MG Tablet 1 tablet in the morning with food Orally Once a dayClaritin , Notes: allergyGabapentin 1 tablet Orally twice dailyFarxiga 10 MG Tablet 1 tablet Orally Once a dayHumaLOG KwikPen Latanoprost Lantus SoloStar , Notes: 40 unitsLevothyroxine Sodium , Notes: 112mg 1 x adayLoratadine Losartan Potassium 50 MG Tablet 1 tablet Orally Twice a dayMetoprolol Succinate 100 MG Capsule ER 24 Hour Sprinkle 1 capsule Orally Once a dayNitroglycerin , Notes: 0.3 mg PRNNIFEdipine CR Osmotic Omeprazole 40 MG Capsule Delayed Release 1 capsule 30 minutes before morning meal Orally twice a daySertraline HCl , Notes: ZoloftVitamin D Extra Depth Orthopedic Shoes, (1) Pair With (3) Pair Custom Heat Molded Multidensity Innersoles . Dx: NIDDM/PVD(E11.51), Hammertoe Foot Deformity(M20.41,M20.42), Preulcerative Skin Lesion(s)(L85.1) Wear DailyTaking Hydralazine-HCTZ Taking Aspirin 81 81 MG Tablet Delayed Release 1 tablet Orally Once a dayTaking Atorvastatin Calcium 20 MG Tablet 1 tablet Orally Once a dayTaking Centrum MultiGummies Taking Chlorthalidone 25 MG Tablet 1 tablet in the morning with food Orally Once a dayTaking Claritin , Notes: allergyTaking Gabapentin 1 tablet Orally twice dailyTaking Farxiga 10 MG Tablet 1 tablet Orally Once a dayTaking HumaLOG KwikPen Taking Latanoprost Taking Lantus SoloStar , Notes: 40 unitsTaking Levothyroxine Sodium , Notes: 112mg 1 x adayTaking Loratadine Taking Losartan Potassium 50 MG Tablet 1 tablet Orally Twice a dayTaking Metoprolol Succinate 100 MG Capsule ER 24 Hour Sprinkle 1 capsule Orally Once a dayTaking Nitroglycerin , Notes: 0.3 mg PRNTaking NIFEdipine CR Osmotic Taking Omeprazole 40 MG Capsule Delayed Release 1 capsule 30 minutes before morning meal Orally twice a dayTaking Sertraline HCl , Notes: ZoloftTaking Vitamin D Taking Extra Depth Orthopedic Shoes, (1) Pair With (3) Pair Custom Heat Molded Multidensity Innersoles . Dx: NIDDM/PVD(E11.51), Hammertoe Foot Deformity(M20.41,M20.42), Preulcerative Skin Lesion(s)(L85.1) Wear DailyNot-Taking/PRNUrea 40 % Cream 1 application to affected area on feet Externally Twice a dayMelatonin , Notes: PRNSertraline HCl Medication List reviewed and reconciled with the patientNot-Taking/PRN Urea 40 % Cream 1 application to affected area on feet Externally Twice a dayNot-Taking/PRN Melatonin , Notes: PRNNot-Taking/PRN Sertraline HCl Medication List reviewed and reconciled with the patient * Allergies:?Amoxicillin: rash BactrimCodeineyes[Allergies Verified] Objective: * Vitals:?Ht: 0cm84bz, Wt:170, BMI:35.53, Shoe size: 5-6, BS: 150, Ht-cm: 147.32 cm, Wt-k.11 kg. * ???Past Orders: ???Lab:HEMOGLOBIN A1C (GLYCO HEMOGLOBIN) (Order Date - 06/21/2023) (Collection Date - 04/15/2023) ? Value Reference Range ?HEMOGLOBIN A1C % (HH) 8.0 * Examination: ???Vascular: ?DP PULSES:?0/4, RIGHT , 1/4 , LEFT.?PT PULSES:? 0/4, B/L.?CAPILLARY FILL TIME:? delayed, all digits, B/L.?SKIN TEMPERTURE GRADIENT OF THE LOWER EXTERMITIES:? decreased, cool to cool, proximal to distal, B/L.?HAIR GROWTH/TEXTURE/ELASTICITY/TURGOR:? decreased, B/L.?PIGMENTATION:? rubrous, B/L.?EDEMA:? 2/4, non-pitting, without aching pain, B/L, Leg(s), Ankle(s), Feet.?CLAUDICATION:?denies, B/L.?REST PAIN:?denies, B/L.?Nails: ?NAILS are:?Elongated, overgrown, dystrophic, lytic, greater than 3mm thick, discolored and friable with crumbly malodorous subungual debris, with pain on palpation, T1, T2, T3, T4, T6, T7, T8, T9.?Ingrown Nail: ?INSPECTION:?Reveals nail incurvation, pain on palpation, groove hypertrophy, Lateral nail border, TA, T5.?Dermatologic: ?SKIN FINDINGS:?Skin exam reveals Keratotic lesion(s) located at, SUB MTH (s), 1, B/L , SUB MTH (s), 2, B/L , SUB MTH (s), 3, B/L , SUB MTH (s), 5, B/L , Heel(s), B/L.? Assessment: * Assessment: 1.?Type 2 diabetes mellitus with diabetic peripheral angiopathy without gangrene - E11.51?2.?Tinea unguium - B35.1?3.?Pain in right toe(s) - M79.674?4.?Pain in left toe(s) - M79.675?5.?Ingrown nail - L60.0, Lateral nail border, TA, T5? Plan: * Treatment: 2.?Tinea unguium?Procedure: 89105-LSXXBVP NAIL, 6 OR MORE 3.?Ingrown nail?Procedure: 33195-Mkxdmrov Plate ?Procedure: 45323-Jjsiabzq Plate Each Additional * Procedures:?Debride Nail 6-10:?Nail debridement?Performance of this nail treatment by a nonprofessional would put this patients foot and overall health at risk. Therefore, nail debridement was performed extensively to reduce/remove overall nail length, girth, thickness, subungual debris, and necrotic tissue, by manual and/or electrical means through the use of a nail nipper and/or dremel-type cnc grinder, to a more viable healthy nail plate or bed tissue 6-10. Silver nitrate used for any petechial bleeding as necessary. Definitive antifungal treatment options have been reviewed and discussed with the patient. The patient chooses, no pharmaceutical tx (12225).?Keratoma Treatment:?Parring or Cutting of Benign Hyperkeratotic Lesion(s)?03715 ( >4 Lesions) - The Benign hyperkeratotic lesions, as described above were pared, and/or cut utilizing a sterile #15 blade, tissue nippers, and/or dremel, Q9.?Nail Avulsion:?Location? Lateral nail border, TA, T5.?Anesthesia?was accomplished TOPICALLY with Lidocaine Hydrochloride Jelly 2%.?Procedure?A fine sterile elevator was placed between the eponychium, nail fold, and nail plate to separate the the structures. A sterile nail splitter, and/or sterile #316 blade, was then used to longitudinally section the nail along its entire length through the eponychium to the area under the nail fold. The offending portion of each nail was from the nail bed with a rolling action and then removed with a hemostat. No underlying bone was identified. A bacitracin sterile dressing was applied. Local wound aftercare instructions were discussed and dispensed. The patient was informed of both conservative and future surgical procedures to prevent recurrence (38824/32), DIABETES: Pt was advised as to the risk of delayed or nonhealing due to diabetes. Pt is to call the office with any questions, concerns, or complications, DIABETES: Matricectomy deferred due to diabetes risk.? * Procedure Codes:?61935 DEBRI DE NAIL, 6 OR MORE, Modifiers: XS 35135 Avulsion Plate, Modifiers: XS , [id number] Avulsion Plate Each Additional, Modifiers: XS , [id number] TRIM SKIN LESIONS, OVER 4, Modifiers: XS , Q9 * Follow Up:?prn * Images: * Sign off status: Completed true * Provider:?Quentin Hendrix DPM Date:?2023 Generated for Alma thompson/Ju/Amara on:?11/20/2024 12:22 PM EDT History and Physical Notes * HPI (History of Present Illness) Category Sub-Category Detail Notes Category Not es At Risk footcare Pt States Last PCP Visit: Date: 4 Examination Category Sub-Category Detail Notes Category Not es Ingrown Nail INSPECTION: Reveals nail inc urvation, pain on palpation, groove hypertrophy, Lateral nail border, TA, T5 Dermatologic SKIN FINDINGS: Skin exam reveal s Keratotic lesion(s) located at, SUB MTH (s), 1, B/L , SUB MTH (s), 2, B/L , SUB MTH (s), 3, B/L , SUB MTH (s), 5, B/L , Heel(s), B/L Vascular DP PULSES (B): 0/4, RIGHT , 1/4 , LEFT PT PULSES (B): 0/4, B/L CAPILLARY FILL TIME: delayed, all digits , B/L TEMPERTURE GRADIENT (C): decreased, cool to cool, proximal to distal, B/L TROPHIC CONDITION-TEXTURE/ELASTICITY/TURGOR/HAIR GROWTH (B): decreased, B/L EDEMA (C): 2/4, non-pitting, wi thout aching pain, B/L, Leg(s), Ankle(s), Feet CLAUDICATION (C): denies, B/L REST PAIN: denies, B/L PIGMENTATION: rubrous, B/L Nails NAILS are: Elongated, overg rown, dystrophic, lytic, greater than 3mm thick, discolored and friable with crumbly malodorous subungual debris, with pain on palpation, T1, T2, T3, T4, T6, T7, T8, T9
--- OUTSIDE RECORDS SUMMARY | 2024-11-20 12:22 | XMS_ITS | Encounter Summary ---
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 Name Role Phone Finn De Dios Primary Care Provider Bunny Chavez Primary Care Provider [phone] Cinthya Montiel MD Primary Care Provider Priya Sinan Westfall MD Unavailable [phone] Encounter Details Date Type Department Care Team Description 12/16/2008 [facility] Medical Records [address] [place] [address] Reji Curiel MD Social History Tobacco Use Types Packs/Day Years Used Date Smoking Tobacco: Never Passive Smoke Exposure: Past Smokeless Tobacco: Never Alcohol Use Standard Drinks/Week Comments Not Currently 0 (1 standard drink = 0.6 oz pur e alcohol) occasionally Sex Assigned at Date Recorded Not on file Job Start Date Occupation Industry Not on file Not on file Not on file documented as of this encounter Plan of Treatment Not on file documented as of this encounter Visit Diagnoses Not on filedocumented in this encounter Care Teams Tongue And Groove Machine Feeder Relationship Specialty Start Date End Date Finn De Dios PCP - General Internal Medicine 08/08/15 12/11/17 Bunny Benavidez [address] [place], [place] [id number] PCP - General Family Practice 12/12/17 01/15/19 Cinthya Montiel MD [address] [place] [address] PCP - General Internal Medicine 01/16/19 Sinan Berry MD [address] [place] [address] [address] [place] [address] Anesthesiology Medical Doctor Cardiovascular Disease 11/06/21 documented as of this encounter
--- OUTSIDE RECORDS SUMMARY | 2024-11-20 12:22 | XMS_ITS | Encounter Summary ---
Author Organization [facility] Address [address] [place] [address] Care Team Providers Care Crib Tender Name Role Phone Finn De Dios Primary Care Provider Bunny Chavez Primary Care Provider [phone] Cinthya Montiel MD Primary Care Provider Priya Sinan Westfall MD Unavailable [phone] Encounter Details Date Type Department Care Team Description 08/08/1999 [facility] [address] [place] [address] Abstract, Provider Social History Tobacco Use Types Packs/Day Years Used Date Smoking Tobacco: Never Assessed Sex Assigned at Date Recorded Not on file Job Start Date Occupation Industry Not on file Not on file Not on file documented as of this encounter Plan of Treatment Not on file documented as of this encounter Procedures Procedure Name Priority Date/Time Associated Diagnosis Comments OUTSIDE EKG Routine 08/08/1999 documented in this encounter Results * OUTSIDE EKG (08/08/1999) Provider Default CARDIOLOGY documented in this encounter Visit Diagnoses Not on filedocumented in this encounter Care Teams Crib Tender Relationship Specialty Start Date End Date Finn De Dios PCP - General Internal Medicine 08/08/15 12/11/17 Bunny Benavidez [address] [place] [id number] PCP - General Family Practice 12/12/17 01/15/19 Cinthya Montiel MD [address] [place] [id number] PCP - General Internal Medicine 01/16/19 Sinan Berry MD [address] [place] [address] [address] [place] [address] Charging Crane Operator Cardiovascular Disease 11/06/21 documented as of this encounter
--- OUTSIDE RECORDS SUMMARY | 2024-11-20 12:22 | XMS_ITS | Clinical Summary ---
Author Organization [facility] Facility Address [address] [place] [id number] Care Team Providers Care Laser/Electro Optics Technician Name Role Phone Cinthya Montiel MD Primary Care Provider [phone] Allergies Active Allergy Reactions Criticality Noted Date Comments Amoxicillin Other (see comments) 09/29/2021 Codeine Nausea And Vomiting, Other (see comments) 04/26/2016 Losartan 12/14/2021 Penicillins Other (see comments) 04/26/2016 Sulfa Antibiotics Other (see comments) 04/26/20 16 Sulfamethoxazole-Trimethopri m Other (see comments) 09/29/2021 Medications aspirin (ST BRANDT) 81 MG EC tablet Take 1 tablet by mouth 1 (one) time each day Active atorvastatin (LIPITOR) 20 MG tablet Take 1 tablet by mouth 1 (one) time each day Active Calcium Citrate-Vitamin D 315-250 MG-UNIT tablet Take 1 tablet by mouth Active chlorthalidone (HYGROTON) 25 MG tablet Take 0.5 tablets by mouth 1 (one) time each day 9 Active insulin glargine (Lantus) 100 UNIT/ML injection Active Insulin Lispro, 0.5 Unit Dial, (HumaLOG Neto KwikPen) 100 UNIT/ML solution pen-injector Active Lancets (onetouch ultrasoft) lancets 9 Active latanoprost (XALATAN) 0.005 % ophthalmic solution Active Multiple Vitamin (MULTIVITAMIN ADULT PO) Take 1 capsule by mouth 1 (one) time each day Active levothyroxine (SYNTHROID, LEVOTHROID) 112 MCG tablet Take 1 tablet by mouth 1 (one) time each day Active loratadine (CLARITIN) 10 MG tablet Take 1 tablet by mouth 1 (one) time each day Active metoprolol succinate XL (TOPROL-XL) 100 MG 24 hr tablet Take 1 tablet by mouth 1 (one) time each day Active NIFEdipine XL (PROCARDIA XL) 90 MG 24 hr tablet Take 1 tablet by mouth 1 (one) time each day 7 Active omeprazole OTC (PriLOSEC OTC) 20 MG EC tablet Take 40 mg by mouth 2 (two) times a day Active gabapentin (NEURONTIN) 300 MG capsule 1 Active BD Pen Needle Piper U/F 32G X 4 MM misc 1 Active OneTouch Ultra test strip 1 Active losartan (COZAAR) 50 MG tablet TAKE 2 TABLETS BY MOUTH (100MG) ONCE DAILY INSTRUCTED. 180 tablet 2 Active Farxiga 5 MG tablet TAKE TWO TABLETS BY MOUTH EVERY DAY 180 tablet 2 3 Active Additional Information Patient taking differently: 10 mg, Reported on 05/03/2024 hydrALAZINE 50 MG tablet 3 Active sertraline (ZOLOFT) 100 MG tablet Take 100 mg by mouth 1 (one) time each day Active Active Problems Problem Noted Date Diagnosed Date Chest pain 12/15/2021 Overview (04/19/2022): Last Assessment & Plan: Patient's chest pain symptoms are vague and atypical in nature. She is able to exercise, climbs stairs and mow her lawn without developing any significant chest pain or dyspnea. She recently underwent a stress echocardiogram which was negative for ischemia. Congestive heart failure 12/14/2021 Overview (04/19/2022): admitted to [facility] 12/2016 for CHF and NELLIE Type 2 diabetes mellitus with peripheral angiopa thy 10/07/2021 Constipation 10/07/2021 Acquired hammer toe of left foot 10/07/2021 Renal osteodystrophy 10/07/2021 Stage 3b chronic kidney disease 08/17/2021 Renal osteodystrophy 02/23/2021 Acute nontraumatic kidney injury 02/16/2021 Anemia of chronic renal failure 02/16/2021 Hyperkalemia 02/16/2021 Renal disorder due to type 2 diabetes mellitus 0 02/16/2021 Pulmonary embolism 07/27/2018 Chronic kidney disease stage 3 07/13/2018 Diverticular disease 07/13/2018 Osteomyelitis of left tibia 07/13/2018 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, implant AND/OR graft 07/13/2018 Overview (02/16/2021): Post op wound infection s/p I&D down to bone Nephrolithiasis 07/13/2018 Overview (02/16/2021): history Vitamin D deficiency 07/13/2018 Wound dehiscence 06/26/2018 Ward's esophagus with low grade dysplasia Acute retention of urine 05/10/2018 Anemia 05/10/2018 Anxiety 05/10/2018 Chronic kidney disease 05/10/2018 Ward's esophagus 05/10/2018 Fracture of tibial plateau 05/10/2018 Fall 05/10/2018 Chronic gastritis without bleeding 01/04/2018 History of cardiac arrest 12/06/2016 Asthma 07/22/2016 Glaucoma 07/22/2016 Fibromyalgia 07/22/2016 Mixed anxiety and depressive disorder 07/22/2016 Hyperlipidemia 06/11/2016 Microalbuminuria 06/11/2016 Essential hypertension 04/26/2016 Hypothyroidism 04/26/2016 Psoriatic arthritis 04/26/2016 Polyp of colon 04/26/2016 Type 2 diabetes mellitus 04/26/2016 Immunizations Immunization Administration Dates Next Due Influenza (IM) Preservative Free 04/08/2021,09/0 08/2019 Influenza, Unspecified 04/18/2018 Moderna SARS-COV-2 11/21/2020 Social History Tobacco Use Types Packs/Day Years Used Date Smoking Tobacco: Never Alcohol Use Standard Drinks/Week Comments No 0 (1 standard drink = 0.6 oz pur e alcohol) Comments Unknown Sex and Gender Information Value Date Recorded Sex Assigned at Not on file Legal Sex Female 4:49 PM EST Gender Identity Not on file Sexual Orientation Not on file Last Filed Vital Signs Vital Sign Reading Time Taken Comments Blood Pressure 126/64 05/03/2024 1:02 PM EDT Pulse 59 05/03/2024 1:02 PM EDT Temperature - - Respiratory Rate - - Oxygen Saturation 98% 05/03/2024 1:02 PM EDT Inhaled Oxygen Concentration - - Weight 79 kg (174 lb 3.2 oz) 05/03/2024 1:02 PM EDT Height 147.3 cm (4' 10 ) 09/01/2020 12:00 PM EST Body Mass Index 36.41 09/01/2020 12:00 PM EST Plan of Treatment Upcoming Encounters Date Type Department Care Team (Late st Contact Info) Description 02/25/2025 1:30 PM EDT Office Visit [facility] [address] [place] [phone] Hussain Flores MD [address] [facility] [address] [place] [address] Health Maintenance Due Date Last Done Comments Breast Cancer Screening 1950 Pneumococcal Vaccine: 50+ Years (1 of 2 - PCV) 1968 Colorectal Cancer Screening: Annual FOBT 1998 Colorectal Cancer Screening: Colonoscopy 1998 Colorectal Cancer Screening: Sigmoidoscopy 1998 Diabetes: Ophthalmology Exam 09/05/2020 Diabetes: Pedal Pulse Checked 09/05/2020 Diabetes: Sensory Foot Exam 09/05/2020 Diabetes: Visual Foot Exam 09/05/2020 Diabetes: Hemoglobin A1C 10/23/202407/25/2 024, 08/30/2019, 02/12/2019 Influenza Vaccine (Season Ended) 2025 04/08/2021, 04/08/2020, 04/18/2018 Hepatitis B Vaccine Aged Out No longe r eligible based on patient's age to complete this topic Procedures Procedure Name Priority Date/Time Associated Diagnosis Comments BLOOD PANEL (HC) Routine 08/30/2019 12:0 0 AM EST from Last 3 Months or Most Recently Relevant to Health Maintenance Results * (ABNORMAL) Blood Panel (08/30/2019 12:00 AM EST) BUN 21(H) 9 - 20 mg/dl [facility] Calcium 9.8 8.4 - 10.2 mg/dl [facility] Creatinine 1.33(H) 0.70 - 1.30 mg/dl [facility] Sodium 140 137 - 145 mmol/L [facility] Potassium 4.5 3.5 - 5.1 mmol/L [facility] Carbon Dioxide (CO2) 28 22 - 30 mmol/L [facility] eGFR Non- 40(L) >60 ml/min [facility] Hemoglobin A1C 7.8(H) <5 % [facility] 08/30/2019 us [facility] [id number] LICITED RESULTS Final Result [facility] from Last 3 Months or Most Recently Relevant to Health Maintenance Insurance [employer] Care Teams Laser/Electro Optics Technician Relationship Specialty Start Date End Date Cinthya Montiel MD [address] [place] [address] PCP - General 08/18/20
--- OUTSIDE RECORDS SUMMARY | 2024-11-20 12:22 | XMS_ITS | Encounter Summary ---
Author Organization [facility] Address [address] [facility] [address] [place] [address] Phone Care Team Providers Care Lpn Rn Name Role Phone Cinthya Montiel MD Primary Care Provider [phone] Encounter Details Date Type Department Care Team ([facility] Contact Info) Description 10/07/2021 Documentation Only [facility] [address] [facility] [address] [place] [phone] Hussain Flores MD [facility] [address] [address] Social History Tobacco Use Types Packs/Day Years Used Date Smoking Tobacco: Never Alcohol Use Standard Drinks/Week Comments No 0 (1 standard drink = 0.6 oz pur e alcohol) Comments Unknown Sex and Gender Information Value Date Recorded Sex Assigned at Not on file Legal Sex Female 4:49 PM EST Gender Identity Not on file Sexual Orientation Not on file documented as of this encounter Plan of Treatment Upcoming Encounters Date Type Department Care Team (Late Contact Info) Description 02/25/2025 1:30 PM EDT Office Visit [facility] [address] [place] [phone] Hussain Flores MD [facility] [address] [phone] documented as of this encounter Visit Diagnoses Not on filedocumented in this encounter Care Teams Lpn Rn Relationship Specialty Start Date End Date Cinthya Montiel MD [address] [place] [address] [place] [address] PCP - General 08/18/20 documented as of this encounter
--- OUTSIDE RECORDS SUMMARY | 2024-11-20 12:22 | XMS_ITS | Encounter Summary ---
Author Organization [facility] Address [address] [place] [address] Care Team Providers Care Patient Services Technician Name Role Phone Cinthya Montiel MD Primary Care Provider Priya Sinan Westfall MD Unavailable Encounter Details Date Type Department Care Team Description 11/06/2021 SC[facility] [address] [facility] [address] [place] [phone] Abstract, Provider Social History Tobacco Use Types Packs/Day Years Used Date Smoking Tobacco: Never Smokeless Tobacco: Never Alcohol Use Standard Drinks/Week Comments Yes 0 (1 standard drink = 0.6 oz pur e alcohol) 4-5 drinks per yr Sex Assigned at Date Recorded Not on file Job Start Date Occupation Industry Not on file Not on file Not on file documented as of this encounter Plan of Treatment Not on file documented as of this encounter Visit Diagnoses Not on filedocumented in this encounter Care Teams Patient Services Technician Relationship Specialty Start Date End Date Cinthya Montiel MD PCP - General Internal Medicine 01/16/19 Sinan Berry MD [address] [place] [address] [address] [place] [phone] [employer] Cardiovascular Disease 11/06/21 documented as of this encounter
--- OUTSIDE RECORDS SUMMARY | 2024-11-20 12:22 | XMS_ITS | Clinical Summary ---
Author Organization [facility] [address] [facility] Address [address] [place] [address] Phone Care Team Providers Care Station Operator Name Role Phone Cinthya Ross MD Primary Care Provider [phone] Allergies Active Allergy Reactions Criticality Noted Date Comments Codeine Nausea And Vomiting 04/26/2016 Penicillin G Hives 04/26/2016 Sulfa (Sulfonamide Antibiotics) Hives 04/08 Medications aspirin 81 mg EC tablet Take 81 mg by mouth daily. Active atorvastatin (LIPITOR) 20 mg tablet Take 20 mg by mouth daily. Active chlorthalidone (HYGROTON) 25 mg tablet Take 25 mg by mouth daily. Active cholecalciferol (VITAMIN D-3) 25 mcg (1,000 unit) tablet Take 1 Tablet by mouth daily. Active dapagliflozin propanediol (FARXIGA) 5 mg tablet Take 10 Tablets by mouth daily. Active gabapentin (NEURONTIN) 300 mg capsule Take 300 mg by mouth 2 times daily. Active OneTouch Ultra Test test strip 12/12/2018 Act nain insulin glargine (LANTUS) 100 unit/mL injection Inject 40 Units into the skin at bedtime. Active insulin lispro (HumaLOG KwikPen Insulin) 100 unit/mL injection pen Inject into the skin 3 times daily (before meals). Sliding scale Active latanoprost (XALATAN) 0.005 % ophthalmic solution 1 Drop at bedtime. Both eyes Active levothyroxine (SYNTHROID, LEVOTHROID) 112 mcg tablet Take 112 mcg by mouth daily. 01/25/2022 Active loratadine (CLARITIN) 10 mg tablet Take 1 Tablet by mouth at bedtime. Active losartan (COZAAR) 100 mg tablet Take 1 Tablet by mouth daily. Active metoprolol succinate (TOPROL-XL) 100 mg 24 hr tablet Take 1 Tablet by mouth daily. Active multivitamin with minerals (MULTIPLE VITAMIN-MINERALS ORAL) Take 2 Tablets by mouth daily. Active NIFEdipine CC (ADALAT CC) 90 mg 24 hr tablet Take 90 mg by mouth daily. Active nitroglycerin (NITROSTAT) 0.[address] 1 Tablet under the tongue every 5 minutes as needed for Chest pain. 06/01/2023 Active omeprazole (PriLOSEC) [address] capsule Take 40 mg by mouth 2 times daily. Active sertraline (ZOLOFT) 100 mg tablet Take 1 Tablet by mouth daily. Active OneTouch UltraSoft Lancets 12/12/2018 Active hydrALAZINE (APRESOLINE) 50 mg tablet TAKE ONE TABLET BY MOUTH TWICE A DAY 180 tablet 3 07/09/2024 Active Active Problems Problem Noted Date Diagnosed Date Sleep apnea 04/11/2024 Overview (06/08/2024): Last Assessment & Plan: Patient with severe sleep apnea unable to tolerate CPAP mask. I discussed with her the possibility of her being a candidate for the inspire device. Will make an appointment for her to be seen by ENT Chest pain 12/15/2021 Overview (06/08/2024): Last Assessment & Plan: Patient with vague chest discomfort negative stress testing in the past. CHF (congestive heart failure) ([facility] V24, [facility] V28) 12/14/2021 Overview (06/08/2024): admitted to [facility] 12/2016 for CHF and NELLIE CKD (chronic kidney disease) stage 3, GFR 30-59 ml/min ([facility] V24, [facility] V28) 07/13/2018 Diverticulosis 07/13/2018 Infection/inflammation due t o internal orthopedic device/implant/graft, sequela 07/13/2018 Overview (06/08/2024): Post op wound infection s/p I&D down to bone Nephrolithiasis 07/13/2018 Overview (06/08/2024): history Osteomyelitis of left tibia ([facility] V24, [facility] V28) 07/13/2018 Vitamin D deficiency 07/13/2018 Giordano's esophagus with low grade dysplasia Chronic gastritis without bleeding 01/04/2018 Anxiety and depression 07/22/2016 Asthma 07/22/2016 Fibromyalgia 07/22/2016 GERD (gastroesophageal reflux disease) 6 Glaucoma 07/22/2016 Hyperlipidemia 06/11/2016 Overview (06/08/2024): Last Assessment & Plan: Patient's last LDL cholesterol was 72. This is at goal. Continue with medical therapy as prescribed. Microalbuminuria 06/11/2016 Colon polyps 04/26/2016 DM (diabetes mellitus), type 2 with renal complications ([facility] V24, [facility] V28) 04/26/2016 Hypertension 04/26/2016 Overview (06/08/2024): Last Assessment & Plan: Patient's blood pressure is actually slightly elevated today because she has not taken hydralazine but for the most part at home her pressures been under control no change in therapy at this time Hypothyroidism 04/26/2016 Psoriatic arthritis ([facility] V24, [facility] V28) 0 04/26/2016 Encounters Date Type Department Care Team Description 10/29/2024 Lab Requisition [facility] - Main Lab [address] [facility] [place] [address] Cinthya Ross MD Type 2 diabetes mellitus with diabetic chronic kidney disease ([facility] V24, [facility] V28) from Last 3 Months Surgical History Surgery Date Site/Laterality Comments COLONOSCOPY 05/17/2016 PROCEDURE: COLOREC CANC SCRN,COLONOSCPY HI RISK; COMMENT: Sigmoid diverticulosis otherwise normal MULTIPLE TOOTH EXTRACTIONS PROCEDURE: HISTORICAL DENTAL EXTRACTION OTHER SURGICAL HISTORY PROCEDURE: HISTORY OTHER; COMMENT: breast cyst excision HYSTERECTOMY PROCEDURE: HISTORICAL HYSTERECTOMY SECTION x2 PROCEDURE: HISTORICAL DELIVERY TONSILLECTOMY PROCEDURE: HISTORICAL TONSILLECTOMY COLONOSCOPY 03/15/2011 PROCEDURE: HISTORICAL COLONOSCOPY; COMMENT: @ [facility] ESOPHAGOGASTRODUODENOSCOPY 05/17/2016 PROCEDURE: HI EGD TRANSORAL BIOPSY SINGLE/MULTIPLE; COMMENT: Distal esophagus Giordano's -small area indef for dysplasia ESOPHAGOGASTRODUODENOSCOPY 07/12/2016 PROCEDURE: HI EGD TRANSORAL BIOPSY SINGLE/MULTIPLE; COMMENT: Distal Giordano's multiple biopsies->giordano's,acute/chron ic inflammation,no dysplasia ESOPHAGOGASTRODUODENOSCOPY 07/22/2014 PROCEDURE: HI EGD TRANSORAL BIOPSY SINGLE/MULTIPLE; COMMENT: @ [facility].Barretts esophagus-biopsies ESOPHAGOGASTRODUODENOSCOPY 01/03/2018 PROCEDURE: HI EGD TRANSORAL BIOPSY SINGLE/MULTIPLE; COMMENT: Giordano's esophagus and ulcer at GE junction; biopsies indefinite for dyspoasia; repeat in 3 months ESOPHAGOGASTRODUODENOSCOPY 04/13/2018 PROCEDURE: HI EGD TRANSORAL BIOPSY SINGLE/MULTIPLE; COMMENT: Giordano's esophagus and hiatus hernia; healed esophageal ulcer.; Giordano's esophagus with low grade dysplasia OTHER SURGICAL HISTORY 06/21/2018 Left PROCEDURE: HI DEBRIDEMENT BONE 1ST 20 SQ CM/<; COMMENT: Tibia - with removal of medial screws & plate OTHER SURGICAL HISTORY 05/04/2018 Left PROCEDURE: HI ARTHRS AID TIBIAL FX PROX UNICONDYLAR BICONDYLAR; COMMENT: and 4 compartment fasciotomy OTHER SURGICAL HISTORY 04/2018 PROCEDURE: HISTORY OTHER; COMMENT: Bicondylar left tibial fracture ; ORIF OTHER SURGICAL HISTORY 04/2018 PROCEDURE: HISTORY OTHER; COMMENT: fasciotomy OTHER SURGICAL HISTORY 06/21/2018 PROCEDURE: HISTORY OTHER; COMMENT: wound debridement CATARACT EXTRACTION Bilateral PROCEDURE: HISTORICAL CATARACT REMOVAL KIDNEY STONE SURGERY PROCEDURE: HI NEPHROLITHOTOMY REMOVAL CALCULUS Medical History Medical History Date Comments Colon polyps 04/26/2016 DX:Colon polyps Essential hypertension 04/26/2016 DX:Essent ial hypertension Hypothyroidism 04/26/2016 DX:Hypothyroidis m Psoriatic arthritis ([facility] V24, [facility] V28) 04/26/2016 DX:Psoriatic arthritis ([facility]) Hyperlipidemia 06/11/2016 DX:Hyperlipidemi a Microalbuminuria 06/11/2016 DX:Microalbumin uria GERD (gastroesophageal reflux disease) 6 DX:GERD (gastroesophageal reflux disease) Asthma 07/22/2016 DX:Asthma Glaucoma 07/22/2016 DX:Glaucoma Anxiety and depression 07/22/2016 DX:Anxiet y and depression Fibromyalgia 07/22/2016 DX:Fibromyalgia DM (diabetes mellitus), type 2 with renal complications ([facility] V24, [facility] V28) 04/26/2016 DX:DM (diabetes mellitus), t ype 2 with renal complications ([facility]) CKD (chronic kidney disease) stage 3, GFR 30-59 ml/min ([facility] V24, [facility] V28) 07/13/2018 DX:CKD (chronic kidney disea se) stage 3, GFR 30-59 ml/min ([facility]) Nephrolithiasis 07/13/2018 DX:Nephrolithias is; COMMENT: history Infection/inflammation due t o internal orthopedic device/implant/graft, sequela 07/13/2018 DX:Infection/inflammation du e to internal orthopedic device/implant/graft, sequela; COMMENT: Post op wound infection s/p I&D down to bone Osteomyelitis of left tibia ([facility] V24, [facility] V28) 07/13/2018 DX:Osteomyelitis of left tib ia ([facility]) Diverticulosis 07/13/2018 DX:Diverticulosi s Chronic gastritis without bleeding 01/04/2018 DX:Chronic gastritis without bleeding Giordano's esophagus with low grade dysplasia 06/25/2018 DX:Giordano's esophagus with low grade dysplasia Vitamin D deficiency 07/13/2018 DX:Vitamin D deficiency Chest pain DX:Chest pain Macular degeneration DX:Macular degeneration Costochondritis DX:Costochondrit is Anemia DX:Anemia Fe deficiency anemia DX:Fe defic iency anemia H/O blood clots 07/2018 DX:H/O blood ynes ts; COMMENT: in lungs Finger fracture, right DX:Finger fracture, right; COMMENT: ring finger Tibial fracture DX:Tibial fractu re; COMMENT: Bicondylar left tibia Meralgia paresthetica DX:Meralgi a paresthetica Bronchitis DX:Bronchitis Levoscoliosis of lumbar spine DX :Levoscoliosis of lumbar spine Family History Medical History Relation Name Comments Other: Esophageal Cancer Brother 1 bro ther 1 Colon cancer Brother 2 Colon polyps. b rother 2 Hypertension Father Hypertension Maternal Grandfather Hypertension Maternal Grandmother Coronary artery disease Mother Anem ia Hypertension Mother Mental illness Mother Hypertension Paternal Grandfather Hypertension Paternal Grandmother Relation Name Status Comments Brother 1 Brother 2 Father Maternal Grandfather Maternal Grandmother Mother Paternal Grandfather Paternal Grandmother Social History Tobacco Use Types Packs/Day Years Used Date Smoking Tobacco: Never Smokeless Tobacco: Never Alcohol Use Standard Drinks/Week Comments Not Currently 0 (1 standard drink = 0.6 oz pur e alcohol) Comments Unknown Sex and Gender Information Value Date Recorded Sex Assigned at Not on file Legal Sex Female 6:48 AM EST Gender Identity Not on file Sexual Orientation Not on file Obstetrics History Last Filed Vital Signs Vital Sign Reading Time Taken Comments Blood Pressure 142/78 04/11/2024 8:49 AM EDT Sit ting L Arm Pulse 55 04/11/2024 8:49 AM EDT Temperature - - Respiratory Rate - - Oxygen Saturation - - Inhaled Oxygen Concentration - - Weight 79.4 kg (175 lb) 07/17/2024 8:21 AM EST Height 149.9 cm (4' 11 ) 07/17/2024 8:21 AM EST Body Mass Index 35.35 07/17/2024 8:21 AM EST Plan of Treatment Upcoming Encounters Date Type Department Care Team (Late st Contact Info) Description 11/23/2024 10:40 AM EDT Office Visit [facility] [address] [place] [address] Diana Andino NP [address] [place] [address] [address] [place] [address] Health Maintenance Due Date Last Done Comments Diabetes: Annual Foot Exam 12/09/1959 Diabetes: Annual Retina Eye Exam 12/09/1959 Zoster Vaccines (2 of 2) 04/06/2018 02/09/2018 Cholesterol Screening (Lipid Panel) 07/18/2022 Colorectal Cancer Screening: Colonoscopy 07/18/2022 05/17/2016 Depression Screening 07/18/2022 Falls Risk Assessment 07/18/2022 Hepatitis C Screening 07/18/2022 Social Influencers of Health Screening 07/18/2022 COVID-19 Vaccine ( season) 2024 01/19/2021, 11/19/2020, 10/21/2020 Diabetes: Annual Urine Albumin-Creatinine Ratio (uACR) 04/17/2025 04/17/2024 Diabetes: Blood Sugar Control Test (HGBA1C) 04/18/2025 10/16/2024, 07/25/2024 Diabetes: Annual GFR (Glomerular Filtration Rate) 10/16/2025 10/16/2024, 07/25/2024 Hypertension/CHF/CAD Annual BMP Blood Test 10/16/2025 10/16/2024, 07/25/2024 Breast Cancer Screening 06/04/2026 06/04/20 24, 05/23/2023, 05/19/2022, Additional history exists DTaP,Tdap,and Td Vaccines (2 - Td or Tdap) 02/10/2028 02/09/2018 Osteoporosis Screening (Bone Density Screening) 02/24/2028 02/23/2018 Pneumococcal Vaccine: 50+ Years Completed 04/27/2022, 06/11/2019, 12/14/2016 RSV Immunization Adult Patients Completed 08/04/2023 Influenza Vaccine Completed 05/02/2024, , 04/21/2022, Additional history exists HIB Vaccines Aged Out No longer eligi ble based on patient's age to complete this topic HPV Vaccines Aged Out No longer eligi ble based on patient's age to complete this topic Hepatitis A Vaccines Aged Out No long er eligible based on patient's age to complete this topic Hepatitis B Vaccines Aged Out No long er eligible based on patient's age to complete this topic IPV Vaccines Aged Out No longer eligi ble based on patient's age to complete this topic MMR Vaccines Aged Out No longer eligi ble based on patient's age to complete this topic Meningococcal ACWY Vaccine Aged Out N o longer eligible based on patient's age to complete this topic Meningococcal B Vaccine Aged Out No l onger eligible based on patient's age to complete this topic RSV Immunization Patients Under 20 months Aged Out No longer eligible based on patient's age to complete this topic Varicella Vaccines Aged Out No longer eligible based on patient's age to complete this topic Procedures Procedure Name Priority Date/Time Associated Diagnosis Comments THYROID STIMULATING HORMONE Routine 10/16/2024 9:11 AM EDT 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) ([facility] V24, [facility] V28) Type II or unspecified type diabetes mellitus with renal manifestations, uncontrolled(250.42) ([facility] V24, [facility] V28) 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 stage IV, or unspecified(403.00) HEMOGLOBIN A1C Routine 10/16/2024 9:11 AM EDT 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) ([facility] V24, [facility] V28) Type II or unspecified type diabetes mellitus with renal manifestations, uncontrolled(250.42) ([facility] V24, [facility] V28) 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 stage IV, or unspecified(403.00) COMPREHENSIVE METABOLIC PANEL Routine 10/16/2024 9:11 AM EDT 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) ([facility] V[facility], [facility] V28) Type II or unspecified type diabetes mellitus with renal manifestations, uncontrolled(250.42) ([facility] V24, [facility] V28) 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 stage IV, or unspecified(403.00) [facility] SCREENING DIGITAL Routine 06/04/2024 11:55 AM EDT Encounter for screening mammogram for malignant neoplasm of breast [facility] DEXA AXIAL SKELETON Routine 02/23/2018 11:28 AM EDT Encounter for screening for osteoporosis COLONOSCOPY Routine 05/17/2016 from Last 3 Months or Most Recently Relevant to Health Maintenance Results * Thyroid stimulating hormone (10/16/2024 9:11 AM EDT) TSH 1.58 0.40 - 4.00 mcIU/mL LAB CHEMISTRY METHOD 10/16/2024 11:36 AM EDT [facility] Blood Venous blood specimen / Unknown Venipuncture / Unknown 10/16/2024 9:11 AM EDT 10/16/2024 10:39 AM EDT us Cinthya Ross MD LAB BLOOD ORDERABLES Final Re sult Performing Organization Address City/[facility]/ZIP Co de Phone Number [facility] [address] [place] [address], [place] [phone] * (ABNORMAL) Hemoglobin A1c (10/16/2024 9:11 AM EDT) Hemoglobin A1C 7.6(H) <6.5 % LAB CHEMISTRY METHOD 10/16/2024 2:26 PM EDT [facility] Mean Bld Glu Estim. 171 mg/dL LAB CHEMISTRY METHOD 10/16/2024 2:26 PM EDT [facility] Blood Venous blood specimen / Unknown Venipuncture / Unknown 10/16/2024 9:11 AM EDT 10/16/2024 10:41 AM EDT Cinthya Ross MD LAB BLOOD ORDERABLES Final Re sult Performing Organization Address [facility]/ZIP Co de Phone Number [facility] [address] [place] [address], [place] [phone] * (ABNORMAL) Comprehensive metabolic panel (10/16/2024 9:11 AM EDT) [facility] Sodium 140 133 - 145 mmol/L LAB CHEMISTRY METHOD 10/16/2024 11:40 AM EDT [facility] Potassium 4.1 3.5 - 5.5 mmol/L LAB CHEMISTRY METHOD 10/16/2024 11:40 AM EDT [facility] Chloride 105 96 - 110 mmol/L LAB CHEMISTRY METHOD 10/16/2024 11:40 AM EDT [facility] CO2 26 21 - 32 mmol/L LAB CHEMISTRY METHOD 10/16/2024 11:40 AM EDT [facility] Anion Gap 9 3 - 11 LAB CHEMISTRY METHOD 10/16/2024 11:40 AM EDT [facility] Glucose 110(H) 70 - 100 mg/dL LAB CHEMISTRY METHOD 10/16/2024 11:40 AM [facility] BUN 26(H) 5 - 25 mg/dL LAB CHEMISTRY METHOD 10/16/2024 11:40 AM [facility] Creatinine 1.56(H) 0.50 - 1.10 mg/dL LAB CHEMISTRY METHOD 10/16/2024 11:40 AM [facility] eGFR 35(L) >=60 mL/min/1. 73m2 LAB CHEMISTRY METHOD 10/16/2024 11:40 AM [facility] Comment:Calculation based on the??Chronic Kidney Disease Epidemiology Collaboration (CKD-EPI) equation refit??without adjustment for race. BUN/Creatinine Ratio 16.7 LAB CHEMISTRY METHOD 10/16/2024 11:40 AM [facility] Calcium 9.4 8.5 - 10.5 mg/dL LAB CHEMISTRY METHOD 10/16/2024 11:40 AM [facility] AST (SGOT) 12 10 - 42 unit/L LAB CHEMISTRY METHOD 10/16/2024 11:40 AM [facility] ALT (SGPT) 18 10 - 60 unit/L LAB CHEMISTRY METHOD 10/16/2024 11:40 AM [facility] Alkaline Phosphatase 63 42 - 121 unit/L LAB CHEMISTRY METHOD 10/16/2024 11:40 AM [facility] Total Protein 7.1 6.0 - 8.0 g/dL LAB CHEMISTRY METHOD 10/16/2024 11:40 AM [facility] Albumin 3.8 3.2 - 5.0 g/dL LAB CHEMISTRY METHOD 10/16/2024 11:40 AM [facility] Total Bilirubin 0.3 0.0 - 1.4 mg/dL LAB CHEMISTRY METHOD 10/16/2024 11:40 AM [facility] Blood Venous blood specimen / Unknown Venipuncture / Unknown 10/16/2024 9:11 AM EDT 10/16/2024 10:39 AM EDT us Cinthya Ross MD LAB BLOOD ORDERABLES Final Re sult [facility] ([facility] H[facility] LAB [address] [place] [address], * OLIVIA SCREENING DIGITAL (06/04/2024 11:55 AM EDT) Anatomical Region Laterality Modality Mammography 06/04/2024 7:37 AM EDT Narrative 06/04/2024 11:[address] [facility] Diagnostic Imaging Department [address] [place] [address] Patient: ??MOLLY TEIXEIRA ?/Age/Sex: 1950 73 - Unit#: ??[id number] ? Location/Status: ??SPDIMAM/REG CLI ? Mnemonic/Ordering Site: ??DIGSC/SPMAM Ordering Physician: ??CINTHYA ROSS MD Olivia Screening Digital - 06/04/24811 Report Status:Signed EXAM: Olivia Screening Digital EXAM DATE AND TIME: 06/04/2024 8:13 AM HISTORY: ??Screening. COMPARISON: ??05/23/23, 05/19/22, 05/14/21 TECHNIQUE: Bilateral digital breast tomosynthesis was performed in the CC and MLO projections. Computer aided detection with [employer] 3D 3.1 was employed. TISSUE DENSITY: b. There are scattered areas of fibroglandular density. FINDINGS: No suspicious masses, grouped microcalcifications, or areas of architectural distortion are seen. Benign rim and secretory calcifications are again seen. Vascular calcification is present. The skin is unremarkable. IMPRESSION: Stable mammographic appearance of the breasts. ??No evidence of malignancy is seen. A negative mammogram in the presence of a clinically suspicious palpable abnormality does not preclude the possibility of malignancy or alter the indications for biopsy. BI-RADS: ??Category 2: Benign RECOMMENDATION(S): 1: Routine screening mammogram BILATERAL in 1 year. Mammogram performed at [facility] [place] [address] Dictating Physician: ??COURTNEY PALENCIA MD Electronically Signed by: ??COURTNEY PALENCIA MD Dic Date/Time: ??06/04/24 1155 Sign date/Time: ??06/04/24 1155 Procedure Note Courtney Palencia MD - 06/09/2024 [facility] Diagnostic Imaging Department [address] [place] [address] Patient: MOLLY TEIXEIRA /Age/Sex: 1950 - 73 - F Unit#: [id number] Location/Status: SPDIMA/REG CLI Mnemonic/Ordering Site: [facility] Ordering Physician: CINTHYA ROSS MD [facility] Screening Digital - 06/04/24 - 0812 Report Status:Signed EXAM: [facility] Screening Digital EXAM DATE AND TIME: 06/04/2024 8:13 AM HISTORY: Screening. COMPARISON: 05/23/23, 05/19/22, 05/14/21 TECHNIQUE: Bilateral digital breast tomosynthesis was performed in the CCand MLO projections. Computer aided detection with [employer] 3D 3.1was employed. TISSUE DENSITY: b. There are scattered areas of fibroglandular density. FINDINGS: No suspicious masses, grouped microcalcifications, or areas ofarchitectural distortion are seen. Benign rim and secretory calcifications are againseen. Vascular calcification is present. The skin is unremarkable. IMPRESSION: Stable mammographic appearance of the breasts. No evidence of malignancyis seen. A negative mammogram in the presence of a clinically suspicious palpable abnormality does not preclude the possibility of malignancy or alter the indications for biopsy. BI-RADS: Category 2: Benign RECOMMENDATION(S): 1: Routine screening mammogram BILATERAL in 1 year. [facility] [address] [address] Dictating Physician: COURTNEY PALENCIA MD Electronically Signed by: COURTNEY PALENCIA MD Dic Date/Time: 06/04/24 1155 Sign date/Time: 06/04/24 115 us Cinthya Ross MD IMG BI PROCEDURES Final Resul t * OLIVIA DEXA AXIAL SKELETON (02/23/2018 11:28 AM EDT) Anatomical Region Laterality Modality Mammography 02/23/2018 9:59 AM EDT Narrative 02/23/2018 11:[address] [facility] Diagnostic Imaging Department [address] [place] [id number] Patient: ??MOLLY TEIXEIRA ?/Age/Sex: 1950 - 67 - F Unit#: ??[id number] ? Location/Status: ??SPDIMAM/REG CLI ? Mnemonic/Ordering Site: ??MAMDEXAAX/SPMAM Ordering Physician: ??CINTHYA ROSS MD Olivia Dexa Axial Skeleton - 02/23/18 - 6 HISTORY: ??The patient is a 67-year-old postmenopausal female with clinical concern for metabolic bone disease. FINDINGS: ??Dual energy x-ray absorptiometry of the lumbar spine and femurs is performed. The mean bone mineral density at L1-L4 (with the exclusion of L2 and L3) is 1.170 gm/cm2 which is 100% of that of young normals and 114% of that of age matched controls. This yields a T-score of 0.0 and a Z-score of 1.2 and there is therefore no evidence of osteoporosis or osteopenia here. The mean bone mineral density of the femurs bilaterally is 0.929 gm/cm2 which is 92% of that of young normals and 106% of that of age matched controls. ??This yields a T-score of -0.6 and a Z-score of 0.4 and there is therefore no evidence of osteoporosis or osteopenia here. However, the T-score of the right femoral neck is -2.2 and that of the left femoral neck is -2.0 which is diagnostic of osteopenia. IMPRESSION: 1. Osteopenia. 2. FRAX analysis yields a 10-year probability of major osteoporotic fracture of 18.5% and a 10-year probability of hip fracture of 3.5%. Code 31644 Dictating Physician: ??JANICE NELSON MD Electronically Signed by: ??JANICE NELSON MD Dic Date/Time: ??02/23/18 1127 Sign date/Time: ??02/23/18 1128 Procedure Note Janice Nelson MD - 07/27/2022 [facility] Diagnostic Imaging Department [address] [place] [address] Patient: MOLLY TEIXEIRA./Age/Sex: 1950 - 67 - F Unit#: [id number] Location/Status: [facility] CLI Mnemonic/[facility] Ordering Physician: CINTHYA ROSS MD [facility] Dexa Axial Skeleton - 02/23/18 - 1046 HISTORY: The patient is a 67-year-old postmenopausal female withclinical concern for metabolic bone disease. FINDINGS: Dual energy x-ray absorptiometry of the lumbar spine and femursis performed. The mean bone mineral density at L1-L4 (with the exclusion ofL2 and L3) is 1.170 gm/cm2 which is 100% of that of young normals and 114% ofthat of age matched controls. This yields a T-score of 0.0 and a Z-score of 1.2and there is therefore no evidence of osteoporosis or osteopenia here. The mean bone mineral density of the femurs bilaterally is 0.929 gm/la4cgrbp is 92% of that of young normals and 106% of that of age matched controls.This yields a T-score of -0.6 and a Z-score of 0.4 and there is therefore noevidence of osteoporosis or osteopenia here. However, the T-score of the rightfemoral neck is -2.2 and that of the left femoral neck is -2.0 which is diagnosticof osteopenia. IMPRESSION: 1. Osteopenia. 2. FRAX analysis yields a 10-year probability of major osteoporoticfracture of 18.5% and a 10-year probability of hip fracture of 3.5%. Code 11694 Dictating Physician: JANICE NELSON MD Electronically Signed by: JANICE NELSON MD Dic Date/Time: 02/23/18 1127 Sign date/Time: 02/23/18 1128 Cinthya Ross MD IMG BI PROCEDURES Final Resul t * Colonoscopy (05/17/2016) Colonoscopy no interpretation , abstracted Anatomical Region Laterality Modality Other Historical Provider HEALTH MAINTENANCE Final Result from Last 3 Months or Most Recently Relevant to Health Maintenance Insurance [employer] Care Teams Station Operator Relationship Specialty Start Date End Date Cinthya Ross MD [facility] [address] PCP - General Internal Medicine 01/16/19
--- OUTSIDE RECORDS SUMMARY | 2024-11-20 12:22 | XMS_ITS | Encounter Summary ---
Author Organization [facility] Address [address] [place] [address] Care Team Providers Care Car Blocker Name Role Phone Finn De Dios Primary Care Provider Bunny Chavez Primary Care Provider [phone] Cintyha Montiel MD Primary Care Provider Priya Sinan Westfall MD Unavailable [phone] Encounter Details Date Type Department Care Team Description 08/04/1999 [facility] Medical Records [address] [place] [address] Reji Curiel MD Social History Tobacco Use [...] on filedocumented in this encounter Care Teams Car Blocker Relationship Specialty Start Date End Date Finn De Dios PCP - General Internal Medicine 08/08/15 12/11/17 Bunny Benavidez [address] [place], [place] [id number] PCP - General Family Practice 12/12/17 01/15/19 [place] [address] [place] [address] PCP - General Internal Medicine 01/16/19 Sinan Berry MD [address] [place] [address] [address] [place] [address] Gas Welding Equipment Mechanic Cardiovascular Disease 11/06/21 documented as of this encounter
--- OUTSIDE RECORDS SUMMARY | 2024-11-20 12:23 | XMS_ITS | Encounter Summary ---
Author Organization [facility] Address [address] [place] [address] Care Team Providers Care Snow Maker Name Role Phone Bunny Benavidez Primary Care Provider Cinthya Montiel MD Primary Care Provider Sinan Wild MD Unavailable [phone] Encounter Details Date Type Department Care Team Description 08/12/2018 Hospital Medical Records [address] [place] [address] Social History Tobacco Use Types Packs/Day Years [...] Name Priority Date/Time Associated Diagnosis Comments OUTSIDE VASCULAR STUDY Routine 08/12/2018 OUTSIDE LAB Routine 08/12/2018 documented in this encounter Results * OUTSIDE LAB (08/12/2018) Provider Abstract LAB * OUTSIDE VASCULAR STUDY (08/12/2018) Provider Abstract CARDIOLOGY documented in this encounter Visit Diagnoses Not on filedocumented in this encounter Care Teams Snow Maker Relationship Specialty Start Date End Date Pramod Bunny [address] [place] [address] PCP - General Family Practice 12/12/17 01/15/19 Cinthya Montiel MD [address] [place] [address], [place] [address] PCP - General Internal Medicine 01/16/19 Sinan Berry MD [address] [place] [address] [address] [place] [address] Storm Sash Maker Cardiovascular Disease 11/06/21 documented as of this encounter
--- OUTSIDE RECORDS SUMMARY | 2024-11-20 12:23 | XMS_ITS | Encounter Summary ---
Author Organization [facility] Address [address] [place] [address] Care Team Providers Care Group Leader Semiconductor Processing Name Role Phone Cinthya Montiel MD Primary Care Provider Priya Sinan Westfall MD Unavailable [phone] Encounter Details Date Type Department Care Team Description 11/03/2021 [facility] Medical Records [address] [place] [address] Cinthya Montiel MD Social History Tobacco Use Types Packs/Day [...] on filedocumented in this encounter Care Teams Group Leader Semiconductor Processing Relationship Specialty Start Date End Date Cinthya Montiel MD PCP - General Internal Medicine 01/16/19 Sinan Berry MD [address] [place] [address] [address] [place] [address] Graduate Teacher Education Cardiovascular Disease 11/06/21 documented as of this encounter
--- OUTSIDE RECORDS SUMMARY | 2024-11-20 12:23 | XMS_ITS | Encounter Summary ---
Author Organization [facility] Address [address] [place] [address] Care Team Providers Care Human Resources Team Member Name Role Phone Cinthya Montiel MD Primary Care Provider [phone] Encounter Details Date Type Department Care Team (Late st Contact Info) Description 10/29/2024 Lab Requisition [facility] - Main Lab [address] [facility] [place] [address] Cinthya Montiel MD [address] [place] [address] [place] [address] Type 2 diabetes mellitus with diabetic chronic kidney disease (CMS/HCC V24, CMS/HCC V28) Social History Tobacco Use Types Packs/Day Years [...] Description 11/23/2024 10:40 AM EDT Office Visit [facility] [address] [place] [address] Diana Andino NP [address] [place] [address] [address] [place] [address] Scheduled Orders Name Type Priority Associated Diagnoses Orde r Schedule Comprehensive metabolic panel Lab Routine Type 2 diabetes mellitus with diabetic chronic kidney disease ([facility]/HCC) Ordered: 10/29/2024 Hemoglobin A1c Lab Routine Type 2 diabetes mellitus with diabetic chronic kidney disease ([facility]/HCC) Ordered: 10/29/2024 documented as of this encounter Visit Diagnoses Diagnosis Type 2 diabetes mellitus with diabetic chronic kidney disease (CMS/HCC V24, CMS/HCC V28) documented in this encounter Care Teams Human Resources Team Member Relationship Specialty Start Date End Date Cinthya Montiel MD [address] PCP - General Internal Medicine 01/16/19 documented as of this encounter
--- OUTSIDE RECORDS SUMMARY | 2024-11-20 12:23 | XMS_ITS | Encounter Summary ---
Author Organization [facility] Address [address] [place] [address] Care Team Providers Care Benzol Operator Name Role Phone Cinthya Montiel MD Primary Care Provider Priya Sinan Westfall MD Unavailable [phone] Encounter Details Date Type Department Care Team Description 11/14/2023 [facility] Medical Records [address] [place] [address] Social History Tobacco Use Types Packs/Day Years [...] on filedocumented in this encounter Care Teams Benzol Operator Relationship Specialty Start Date End Date Cinthya Montiel MD PCP - General Internal Medicine 01/16/19 Sinan Berry MD [address] [place] [address] [place] [address] Security Controls Assessor Cardiovascular Disease 11/06/21 documented as of this encounter
--- OUTSIDE RECORDS SUMMARY | 2024-11-20 12:23 | XMS_ITS | Encounter Summary ---
Author Organization [facility] Address [address] [place] [address] Care Team Providers Care Unhairing Inspector Name Role Phone Finn De Dios Primary Care Provider Bunny Chavez Primary Care Provider [phone] Cinthya Montiel MD Primary Care Provider Sinan Wild MD Unavailable [phone] Encounter Details Date Type Department Care Team Description 11/01/2016 Hospital Medical Records [address] [place], [place] [address] [place] [address] Social History Tobacco Use Types Packs/Day Years [...] Date/Time Associated Diagnosis Comments OUTSIDE EKG Routine 11/01/2016 OUTSIDE PLAIN FILM Routine 11/01/2016 documented in this encounter Results * OUTSIDE PLAIN FILM (11/01/2016) Provider Abstract RADIOLOGY * OUTSIDE EKG (11/01/2016) Provider Abstract CARDIOLOGY documented in this encounter Visit Diagnoses Not on filedocumented in this encounter Care Teams Unhairing Inspector Relationship Specialty Start Date End Date Finn De Dios PCP - General Internal Medicine 08/08/15 12/11/17 Bunny Benavidez [address] [place] [address] PCP - General Family Practice 12/12/17 01/15/19 Cinthya Montiel MD [address] [place] [address] PCP - General Internal Medicine 01/16/19 Sinan Berry MD [address] [place] [address] [address] [place] [address] Editorial Manager Cardiovascular Disease 11/06/21 documented as of this encounter
--- OUTSIDE RECORDS SUMMARY | 2024-11-20 12:23 | XMS_ITS | Patient Health Record ---
[facility] Address [address] [place] [address] Care Team Providers Care Vault Custodian Name Role Phone Cinthya Montiel Primary Care Provider Unavailab le Quentin Hendrix Unavailable [phone] Cinthya Montiel Unavailable Unavailable Allergies Allergen (clinical drug ingredient) Drug/Non Drug Allergy documented on EMR Reaction Allergy Type Onset Date Status amoxicillin Amoxicillin rash Drug Allergy Act nain sulfamethoxazole / trimethoprim Bactrim Unknown Drug Allergy Active codeine Codeine Unknown Drug Allergy Active Results Component Value Reference Range Notes HEMOGLOBIN A1C (GLYCOHEMOGLO BIN) Reviewed date:06/29/2024 08:53:19 AM Interpretation: Performing Lab: Notes/Report: TOTAL HEMOGLOBIN (HGBA1C) 7.2 HEMOGLOBIN A1C (GLYCOHEMOGLO BIN) Reviewed date:09/28/2024 09:00:51 AM Interpretation: Performing Lab: Notes/Report: HEMOGLOBIN A1C % (HH) 7.3 Reason For Referral Diagnosis 1 Type 2 diabetes jami itus with diabetic peripheral angiopathy without gangrene (E11.51) Diagnosis 2 Other hammer toe(s) (acquired), right foot (M20.41) Diagnosis 3 Other hammer toe(s) (acquired), left foot (M20.42) Referring Provider First Name Cinthya Referring Provider Last Name Dinesh [facility] Referred Provider Quentin Hendrix Referred Address [address] [place], [place],[address], Referred Provider Specialty Podiatry Referral Priority Routine Medications Medication SIG (Take, Route, Frequency, Duration) Notes Start Date End Date Status Claritin allergy Active NIFEdipine CR Osmotic Active Chlorthalidone 25 MG 1 tablet in the morning with food Orally Once a day for 30 day(s) Active Nitroglycerin 0.3 mg PRN Activ e Centrum MultiGummies Active Metoprolol Succinate 100 MG 1 capsule Orally Once a day for 30 day(s) Active Atorvastatin Calcium 20 MG 1 tablet Orally Once a day for 30 day(s) Active Losartan Potassium 50 MG 1 tablet Orally Twice a day Active Aspirin 81 81 MG 1 tablet Orally Once a day for 30 day(s) Active Loratadine Active Sertraline HCl Not-T aking Hydralazine-HCTZ Act nain Levothyroxine Sodium 112mg 1 x aday Active Melatonin PRN Not-Taking Lantus SoloStar 40 units Acti ve Urea 40 % 1 application to affected area on feet Externally Twice a day for 30 days 11/26/2022 Not-Taking Latanoprost Active Extra Depth Orthopedic Shoes, (1) Pair With (3) Pair Custom Heat Molded Multidensity Innersoles Dx: NIDDM/PVD(E11.51), Hammertoe Foot Deformity(M20.41,M20 .42), Preulcerative Skin Lesion(s)(L85.1) Wear Daily for 365 days Active Gabapentin 1 tablet Orally twice daily Active HumaLOG KwikPen Acti ve Vitamin D Active Farxiga 10 MG 1 tablet Orally Once a day Active Sertraline HCl Zoloft Activ e Omeprazole 40 MG 1 capsule 30 minutes before morning meal Orally twice a day Active Immunizations Vaccine Route Administration Date Status Comme nts COVID-19 Moderna Vaccine Unknown 11/21/2020 Administere d 1st 10/18/2020 Influenza Unknown 04/08/2020 Administered Influenza Unknown 04/08/2022 Administered Influenza Unknown 04/08/2023 Administered Social History Tobacco Use: Social History Observation Description Date Details (start date - stop date) Never Smoker NA - NA Tobacco Use/Smoking Question Answer Notes Are you a: nonsmoker Additional Findings: Tobacco Non-User Aggressive non-smoker Alcohol Screen Question Answer Notes Did you have a drink containing alcohol in the p ast year? No Points 0 Interpretation Negative Tobacco use other than smoking: Question Answer Notes Are you an other tobacco user? No Problems Problem Type SNOMED Code ICD Code Onset Dates Problem Status W/U Status Risk Notes Problem Acquired hammer toe of right foot (5943964453630 105) Other hammer toe(s) (acquired), right foot (M20.41) Active confirmed Response to treatment,I mprovement Problem Type 2 diabetes mellitus with peripheral angiopathy (838054382) Type 2 diabetes mellitus with diabetic peripheral angiopathy without gangrene (E11.51) Active confirmed Problem Acquired hammer toe of left foot (0954414954792 103) Other hammer toe(s) (acquired), left foot (M20.42) Active confirmed Response to treatment,I mprovement Vital Signs Blood pressure diastolic 85 mm Hg 09/28/2024 Height 6rn53ye in 09/28/2024 Blood pressure systolic 134 mm Hg 09/28/2024 Weight 173 lbs 09/28/2024 BMI 36.15 kg/m2 09/28/2024 Procedures Procedure Date Ordered Date Performed Result Body Sit e 76036-YTBCPDK NAIL, 6 OR MORE 01/24/2024 N/A 54628-Oqwoevbk Plate 01/24/2024 N/A 60980-Mdbvfgtt Plate Each Additional 01/24/2024 N/A 60675-BZKJ SKIN LESIONS, OVER 4 01/24/2024 N/A 13596-ICJIABW NAIL, 6 OR MORE 04/03/2024 N/A 64322-Fhofutkm Plate 04/03/2024 N/A 99992-Cpcjrdpv Plate Each Additional 04/03/2024 N/A 04617-TZHP SKIN LESIONS, OVER 4 04/03/2024 N/A 12281-IBMETUM NAIL, 6 OR MORE 06/29/2024 N/A 29841-Acrzwgll Plate 06/29/2024 N/A 02227-Wzavbkqj Plate Each Additional 06/29/2024 N/A 08291-TXHC SKIN LESIONS, OVER 4 06/29/2024 N/A 59262-MSRZYCB NAIL, 6 OR MORE 09/28/2024 N/A 28756-VLNF SKIN LESIONS, OVER 4 09/28/2024 N/A Encounters Encounter Location Date Provider Diagnosis [facility] [address] [place] [address] 01/24/2024 Quentin Hendrix Type 2 diabetes mellitus with diabetic peripheral angiopathy without gangrene E11.51 ; Tinea unguium B35.1 ; Pain in right toe(s) M79.674 ; Pain in left toe(s) M79.675 ; Ingrown nail L60.0 ; Other hammer toe(s) (acquired), right foot M20.41 and Other hammer toe(s) (acquired), left foot M20.[address] [address] 04/03/2024 Quentin Hendrix Type 2 diabetes mellitus with diabetic peripheral angiopathy without gangrene E11.51 ; Tinea unguium B35.1 ; Pain in right toe(s) M79.674 ; Pain in left toe(s) M79.675 and Ingrown nail L60.[address] [address] 06/29/2024 Quentin Hendrix Type 2 diabetes mellitus with diabetic peripheral angiopathy without gangrene E11.51 ; Tinea unguium B35.1 ; Pain in right toe(s) M79.674 ; Pain in left toe(s) M79.675 and Ingrown nail L60.[address] [address] 09/28/2024 Quentin Hendrix Type 2 diabetes mellitus with diabetic peripheral angiopathy without gangrene E11.51 ; Tinea unguium B35.1 ; Pain in right toe(s) M79.674 and Pain in left toe(s) M79.675 Assessments Encounter Date Diagnosis (ICD Code) Assessment Notes Treatment Notes Treatment Clinical Notes Section Notes 01/24/2024 Type 2 diabetes mellitus with diabetic peripheral angiopathy without gangrene (ICD-10 - E11.51) 01/24/2024 Tinea unguium (ICD-10 - B35.1) 04/03/2024 Type 2 diabetes mellitus with diabetic peripheral angiopathy without gangrene (ICD-10 - E11.51) 04/03/2024 Tinea unguium (ICD-10 - B35.1) 06/29/2024 Type 2 diabetes mellitus with diabetic peripheral angiopathy without gangrene (ICD-10 - E11.51) 06/29/2024 Tinea unguium (ICD-10 - B35.1) 09/28/2024 Type 2 diabetes mellitus with diabetic peripheral angiopathy without gangrene (ICD-10 - E11.51) 09/28/2024 Tinea unguium (ICD-10 - B35.1) 06/29/2024 Pain in right toe(s) (ICD-10 - M79.674) 09/28/2024 Pain in right toe(s) (ICD-10 - M79.674) 04/03/2024 Pain in right toe(s) (ICD-10 - M79.674) 01/24/2024 Pain in right toe(s) (ICD-10 - M79.674) 01/24/2024 Pain in left toe(s) (ICD-10 - M79.675) 04/03/2024 Pain in left toe(s) (ICD-10 - M79.675) 06/29/2024 Pain in left toe(s) (ICD-10 - M79.675) 09/28/2024 Pain in left toe(s) (ICD-10 - M79.675) 06/29/2024 Ingrown nail (ICD-10 - L60.0) 04/03/2024 Ingrown nail (ICD-10 - L60.0) 01/24/2024 Ingrown nail (ICD-10 - L60.0) 01/24/2024 Other hammer toe(s) (acquired), right foot (ICD-10 - M20.41) Response to treatment,Impro vement 01/24/2024 Other hammer toe(s) (acquired), left foot (ICD-10 - M20.42) Response to treatment,Impro vement Plan Of Treatment Pending Test Test Name Order Date X ray : Foot, left 3V 02/16/2022 X ray : Foot, right 3V 02/16/2022 64337-WQXVRTL NAIL, 6 OR MORE 05/07/2022 00222-CAZSBPR NAIL, 6 OR MORE 12/11/2021 28548-SVFELOY NAIL, 6 OR MORE 02/16/2022 98334-CVQCFNO NAIL, 6 OR MORE 06/13/2020 31345-MABAIEB NAIL, 6 OR MORE 09/12/2020 16299-FOPURPB NAIL, 6 OR MORE 11/21/2020 14612-WEVXVLV NAIL, 6 OR MORE 01/30/2021 50934-ACIACGV NAIL, 6 OR MORE 04/28/2021 37103-BTNFVVO NAIL, 6 OR MORE 07/10/2021 74564-WSZXIXA NAIL, 6 OR MORE 09/29/2021 95351-LIADUGJ NAIL, 6 OR MORE 07/13/2022 42145-OTMCUQV NAIL, 6 OR MORE 09/24/2022 19924-AIDZECL NAIL, 6 OR MORE 11/26/2022 67904-LFYNSYD NAIL, 6 OR MORE 02/04/2023 17250-TWTTRWO NAIL, 6 OR MORE 06/21/2023 24190-NWBCUTN NAIL, 6 OR MORE 08/30/2023 51840-HNDCSQZ NAIL, 6 OR MORE 11/15/2023 26724-ALJVCFM NAIL, 6 OR MORE 01/24/2024 43718-WNKZLDZ NAIL, 6 OR MORE 04/03/2024 86957-PCNGGIB NAIL, 6 OR MORE 06/29/2024 08238-KSQVJBV NAIL, 6 OR MORE 09/28/2024 49007-Eaqbodfr Plate 06/29/2024 02944-Wtplbong Plate 04/03/2024 11147-Pblodvac Plate 01/24/2024 31422-Kwlcayxl Plate 11/15/2023 05683-Gctekbwl Plate 08/30/2023 09064-Zffylsqy Plate 06/21/2023 89529-Ojrcnuuj Plate 02/04/2023 95695-Laixjldr Plate 11/26/2022 39912-Ypqaksgu Plate 09/24/2022 77886-Wjiuccqy Plate 07/13/2022 38743-Aaqcvhfe Plate 09/29/2021 81186-Utwlzqyr Plate 09/12/2020 57586-Ysmbcish Plate 02/16/2022 97626-Akpyqwiv Plate 12/11/2021 02510-Jeoflmdz Plate 05/07/2022 91883-Dbncvffi Plate 06/13/2020 81290-Vegcmdvt Plate 07/10/2021 27131-Twbizwrs Plate Each Additional 10/2020 71830-Zzdjkuvh Plate Each Additional 99217-Zkcxfakm Plate Each Additional 01/2022 90614-Svgczbao Plate Each Additional 07/2022 27321-Dorrkazg Plate Each Additional 40720-Tiejqogh Plate Each Additional 01/2022 56830-Lpvsupyn Plate Each Additional 81517-Ketnydgs Plate Each Additional 70729-Mrgguasa Plate Each Additional 02159-Wpodnvfh Plate Each Additional 74702-Spnixyqe Plate Each Additional 27279-Dekpjpyw Plate Each Additional 04/2024 50742-Yenqaica Plate Each Additional 31123-Boftxmbq Plate Each Additional 60098-Rvvzwsgm Plate Each Additional 21349-HJDM SKIN LESIONS, OVER 4 06/29/20 27454-VVBZ SKIN LESIONS, OVER 4 04/03/20 57607-GVBR SKIN LESIONS, OVER 4 09/28/19 39629-MDZX SKIN LESIONS, OVER 4 01/24/20 00279-XEFK SKIN LESIONS, OVER 4 11/15/19 33748-PLHP SKIN LESIONS, OVER 4 08/30/19 00379-QAJN SKIN LESIONS, OVER 4 06/21/20 23 50386-YTSG SKIN LESIONS, OVER 4 02/05/20 25208-NKOR SKIN LESIONS, OVER 4 11/27/19 37179-BAAP SKIN LESIONS, OVER 4 09/24/19 23 75512-PVEP SKIN LESIONS, OVER 4 07/13/20 78517-AEES SKIN LESIONS, OVER 4 09/29/19 04545-FLBU SKIN LESIONS, OVER 4 07/10/20 64863-VECG SKIN LESIONS, OVER 4 04/28/20 55538-LXJD SKIN LESIONS, OVER 4 09/12/19 29553-IJNN SKIN LESIONS, OVER 4 06/13/20 47390-XVSF SKIN LESIONS, OVER 4 01/31/20 40468-KWMG SKIN LESIONS, OVER 4 11/22/19 30933-QWUV SKIN LESIONS, OVER 4 02/17/20 25873-QPOU SKIN LESIONS, OVER 4 12/12/19 53309-RUXP SKIN LESIONS, OVER 4 05/07/20 Next Appt Details Provider Name:Quentin Hendrix , 01/01/2025 09:00:00 AM, [address] [facility], [place], [address], Insurance Providers Payer Name Payer Address Payer Phone Subscriber Number Group Number Insured Name Patient Relationship to Insured Coverage Start Date Coverage End Date [employer] Preferred [address] [place] [address] [id number] Molly Teixeira Self - patient is the insured Medical (General) History Medical History History ICD Code Angina Anxiety Arthritis Cataracts Depression Diabetic type 2 Fibromyalgia Glaucoma Headaches/Migraines Heart disease Hiatal hernia High blood pressure Kidney disease Macular degeneration Reflux ( GERD) Sinus conditions thyroid Joint implants/screws Transfusions CAD Covid 19 Surgical History Surgery Date(Month/Year) breast biopsy teeth fractured leg x2 kidney stones tonsillectomy colonoscopy 2020 endoscopy 2020
--- OUTSIDE RECORDS SUMMARY | 2024-11-20 12:23 | XMS_ITS | Encounter Summary ---
Author Organization [facility] Address [address] [place] [address] Care Team Providers Care Technology Training Associate Name Role Phone Cinthya Montiel MD Primary Care Provider Priya Sinan Westfall MD Unavailable [phone] Encounter Details Date Type Department Care Team Description 09/30/2021 SCAN Medical Records [address] [place] [address] Abstract, Provider Social History Tobacco Use Types [...] Name Priority Date/Time Associated Diagnosis Comments OUTSIDE LAB Routine 09/30/2021 documented in this encounter Results * OUTSIDE LAB (09/30/2021) Provider Abstract LAB documented in this encounter Visit Diagnoses Not on filedocumented in this encounter Care Teams Technology Training Associate Relationship Specialty Start Date End Date Cinthya Montiel MD PCP - General Internal Medicine 01/16/19 Sinan Berry MD [address] [place] [address] Anesthesiology Fellow Cardiovascular Disease 11/06/21 documented as of this encounter
--- OUTSIDE RECORDS SUMMARY | 2024-11-20 12:23 | XMS_ITS | Encounter Summary ---
Author Organization [facility] Address [address] [place] [address] Care Team Providers Care Marketing Systems Analyst Name Role Phone Cinthya Montiel MD Primary Care Provider Priya Sinan Westfall MD Unavailable [phone] Encounter Details Date Type Department Care Team Description 07/14/2023 SCAN Medical Records [address] [place] [address] Hussain Flores MD Social History Tobacco Use Types Packs/Day [...] Name Priority Date/Time Associated Diagnosis Comments OUTSIDE ECHO Routine 07/14/2023 OUTSIDE LAB Routine 07/14/2023 documented in this encounter Results * OUTSIDE LAB (07/14/2023) Provider Default LAB * OUTSIDE ECHO (07/14/2023) Provider Default CARDIOLOGY documented in this encounter Visit Diagnoses Not on filedocumented in this encounter Care Teams Marketing Systems Analyst Relationship Specialty Start Date End Date Cinthya Montiel MD PCP - General Internal Medicine 01/16/19 Sinan Berry MD [address] [place] [address] [address] [place] [address] Strike Off Machine Operator Cardiovascular Disease 11/06/21 documented as of this encounter
--- OUTSIDE RECORDS SUMMARY | 2024-11-20 12:23 | XMS_ITS | Encounter Summary ---
Author Organization [facility] Address [address] [place] [address] Care Team Providers Care Cnc Manager Name Role Phone Cinthya Montiel MD Primary Care Provider Priya Sinan Westfall MD Unavailable [phone] Encounter Details Date Type Department Care Team Description 04/05/2024 SCAN Medical Records [address] [place] [address] Mikel Bunch MD Social History Tobacco Use Types Packs/Day [...] Date/Time Associated Diagnosis Comments OUTSIDE LAB Routine 04/05/2024 OUTSIDE LAB Routine 04/05/2024 documented in this encounter Results * OUTSIDE LAB (04/05/2024) Provider Abstract LAB * OUTSIDE LAB (04/05/2024) Provider Abstract LAB documented in this encounter Visit Diagnoses Not on filedocumented in this encounter Care Teams Cnc Manager Relationship Specialty Start Date End Date Cinthya Montiel MD PCP - General Internal Medicine 01/16/19 Sinan Berry MD [address] [place] [address] [address] [place] [address] Lithographic Stripper Cardiovascular Disease 11/06/21 documented as of this encounter
--- OUTSIDE RECORDS SUMMARY | 2024-11-20 12:23 | XMS_ITS | Encounter Summary ---
Author Organization [facility] Address [address] [place] [address] Care Team Providers Care Structural Designer Name Role Phone Bunny Benavidez Primary Care Provider [phone] Cinthya Montiel MD Primary Care Provider Priya Sinan Westfall MD Unavailable [phone] Encounter Details Date Type Department Care Team Description 06/22/2018 [facility] Medical Records [address] [place] [address] Nida Ziegler MD Social History Tobacco Use Types Packs/Day [...] on filedocumented in this encounter Care Teams Structural Designer Relationship Specialty Start Date End Date Bunny Benavidez [address] [place] [address] PCP - General Family Practice 12/12/17 01/15/19 Cinthya Montiel MD [address] [place] [address] PCP - General Internal Medicine 01/16/19 Sinan Berry MD [address] [place] [address] [address] [place] [address] Crisis Manager Cardiovascular Disease 11/06/21 documented as of this encounter
--- OUTSIDE RECORDS SUMMARY | 2024-11-20 12:23 | XMS_ITS | Encounter Summary ---
Author Organization [facility] Address [address] [place] [address] Care Team Providers Care Dry Cleaner Hand Name Role Phone Finn De Dios Primary Care Provider Bunny Chavez Primary Care Provider [phone] Cinthya Montiel MD Primary Care Provider Priya Sinan Westfall MD Unavailable [phone] Encounter Details Date Type Department Care Team Description 11/16/2017 Senior Financial Analyst Report Medical Records [address] [place] [address] Bunny Benavidez [address] [place] [address] [id number] Social History Tobacco Use Types Packs/Day Years Used Date Smoking Tobacco: Never Alcohol Use Standard Drinks/Week Comments No 0 (1 standard drink = 0.6 oz pur e alcohol) Sex Assigned at Date Recorded Not on file Job Start Date Occupation Industry Not on file Not on file Not on file documented as of this encounter Plan of Treatment Not on file documented as of this encounter Visit Diagnoses Not on filedocumented in this encounter Care Teams Dry Cleaner Hand Relationship Specialty Start Date End Date Finn De Dios PCP - General Internal Medicine 08/08/15 12/11/17 Bunny Benavidez [address] [place], [place] [phone] PCP - General Family Practice 12/12/17 01/15/19 Cinthya Montiel MD [address] [place] [address] PCP - General Internal Medicine 01/16/19 Sinan Berry MD [address] [place] [address] [address] [place], [place] [phone] Injection Molding Engineer Cardiovascular Disease 11/06/21 documented as of this encounter
--- OUTSIDE RECORDS SUMMARY | 2024-11-20 12:23 | XMS_ITS | Encounter Summary ---
Author Organization [facility] Address [address] [place] [address] Care Team Providers Care Semiconductor Wafers Etcher Stripper Name Role Phone Cinthya Montiel MD Primary Care Provider Priya Sinan Westfall MD Unavailable [phone] Encounter Details Date Type Department Care Team Description 09/30/2021 SCAN Medical Records [address] [place] [address] Abstract, Provider Social History Tobacco Use Types [...] on filedocumented in this encounter Care Teams Semiconductor Wafers Etcher Stripper Relationship Specialty Start Date End Date Cinthya Montiel MD PCP - General Internal Medicine 01/16/19 Sinan Berry MD [address] [place] [address] Finance Consultant Cardiovascular Disease 11/06/21 documented as of this encounter
--- OUTSIDE RECORDS SUMMARY | 2024-11-20 12:23 | XMS_ITS | Encounter Summary ---
Author Organization [facility] Address [address] [place] [address] Care Team Providers Care Chromosomal Disorders Counselor Name Role Phone Cinthya Montiel MD Primary Care Provider Priya Sinan Westfall MD Unavailable [phone] Encounter Details Date Type Department Care Team Description 01/14/2022 Release of Information Medical Records [address] [place] [address] [facility] Social History Tobacco Use Types Packs/Day Years Used Date Smoking Tobacco: Never Smokeless Tobacco: Never Alcohol Use Standard Drinks/Week Comments Yes 0 (1 standard drink = 0.6 oz pur e alcohol) occasionally Sex Assigned at Date Recorded Not on file Job Start Date Occupation Industry Not on file Not on file Not on file COVID-19 Exposure Response Date Recorded In the last 10 days, have yo u been in contact with someone who was confirmed or suspected to have Coronavirus/COVID-19? No / Unsure 01/05/2022 7:46 AM EDT documented as of this encounter Plan of Treatment Not on file documented as of this encounter Visit Diagnoses Not on filedocumented in this encounter Care Teams Chromosomal Disorders Counselor Relationship Specialty Start Date End Date Cinthya Montiel MD PCP - General Internal Medicine 01/16/19 Sinan Berry MD [address] [place] [address] [address] [place] [address] Sleeve Setter Lockstitch Cardiovascular Disease 11/06/21 documented as of this encounter
--- OUTSIDE RECORDS SUMMARY | 2024-11-20 12:23 | XMS_ITS | Encounter Summary ---
Author Organization [facility] Address [address] [place] [address] Care Team Providers Care Managed Care Coordinator Name Role Phone Cinthya Montiel MD Primary Care Provider Priya Sinan Westfall MD Unavailable [phone] Encounter Details Date Type Department Care Team Description 11/06/2021 SCAN Cardio [facility] [address] [facility] [address] [place] [phone] Abstract, Provider Social History Tobacco Use Types [...] on filedocumented in this encounter Care Teams Managed Care Coordinator Relationship Specialty Start Date End Date Cinthya Montiel MD PCP - General Internal Medicine 01/16/19 Sinan Berry MD [address] [place] [address] [address] [place] [address] Senior Information Security Consultant Cardiovascular Disease 11/06/21 documented as of this encounter
--- OUTSIDE RECORDS SUMMARY | 2024-11-20 12:23 | XMS_ITS ---
Author Organization [facility] Address [address] [place] [address] Care Team Providers Care Generator Repairer Name Role Phone Cinthya Montiel Primary Care Provider Unavailab Quentin Garcia Unavailable [phone] Cinthya Montiel Unavailable Unavailable Allergies Allergen (clinical [...] Duration) Notes Start Date End Date Status Vitamin D Active Urea 40 % 1 application to affected area on feet Externally Twice a day for 30 days 11/26/2022 Not-Taking Extra Depth Orthopedic Shoes, (1) Pair With (3) Pair Custom Heat Molded Multidensity Innersoles Dx: NIDDM/PVD(E11.51), Hammertoe Foot Deformity(M20.41,M20 .42), Preulcerative Skin Lesion(s)(L85.1) Wear Daily for 365 days Active Sertraline HCl Not-T aking Melatonin PRN Not-Taking Metoprolol Succinate 100 MG 1 capsule Orally Once a day for 30 day(s) Active NIFEdipine CR Osmotic Active Nitroglycerin 0.3 mg PRN Activ e Sertraline HCl Zoloft Activ e Omeprazole 40 MG 1 capsule 30 minutes before morning meal Orally twice a day Active Losartan Potassium 50 MG 1 tablet Orally Twice a day Active Lantus SoloStar 40 units Acti ve Latanoprost Active Loratadine Active Levothyroxine Sodium 112mg 1 x aday Active Claritin allergy Active Chlorthalidone 25 MG 1 tablet in the morning with food Orally Once a day for 30 day(s) Active Farxiga 10 MG 1 tablet Orally Once a day Active Gabapentin 1 tablet Orally twice daily Active HumaLOG KwikPen Acti ve Centrum MultiGummies Active Atorvastatin Calcium 20 MG 1 tablet Orally Once a day for 30 day(s) Active Aspirin 81 81 MG 1 tablet Orally Once a day for 30 day(s) Active Hydralazine-HCTZ Act nain Social History Tobacco [...] other tobacco user? No Vital Signs Height 7on04ll in 06/29/2024 Weight 170 lbs 06/29/2024 BMI 35.53 kg/m2 06/29/2024 Procedures Procedure Date Ordered Date Performed Result Body Sit e 87077-LNVXNKU NAIL, 6 OR MORE 06/29/2024 N/A 77786-Kdyicvhv Plate 06/29/2024 N/A 46950-Xbrosqdb Plate Each Additional 06/29/2024 N/A 51848-GYZX SKIN LESIONS, OVER 4 06/29/2024 N/A Encounters Encounter Location Date Provider Diagnosis [facility] [address] [place] [address] 06/29/2024 Quentin Hendrix Type 2 diabetes mellitus with diabetic peripheral angiopathy without gangrene E11.51 ; Tinea unguium B35.1 ; Pain in right toe(s) M79.674 ; Pain in left toe(s) M79.675 and Ingrown nail L60.0 Assessments Encounter Date Diagnosis (ICD Code) Assessment Notes Treatment Notes Treatment Clinical Notes Section Notes 06/29/2024 Type 2 diabetes mellitus with diabetic peripheral angiopathy without gangrene (ICD-10 - E11.51) 06/29/2024 Tinea unguium (ICD-10 - B35.1) 06/29/2024 Pain in right toe(s) (ICD-10 - M79.674) 06/29/2024 Pain in left toe(s) (ICD-10 - M79.675) 06/29/2024 Ingrown nail (ICD-10 - L60.0) Plan Of Treatment Pending Test Test Name Order Date 25435-JXCYPAW NAIL, 6 OR MORE 06/29/2024 23927-Cfftqnvq Plate 06/29/2024 72600-Mrcansns Plate Each Additional 65573-GKOV SKIN LESIONS, OVER 4 06/29/20 24 Next Appt Details Follow Up: prn, Reason: Provider Name:Quentin Hendrix , 01/01/2025 09:00:00 AM, [address] [place] [address], [phone], Procedure Notes * Category Sub-Category Detail Notes [...] and future surgical procedures to prevent recurrence (/32), DIABETES: Pt was advised as to the [...] foot and overall health at risk. Therefore, debridement to affected nail(s), as described in exam, was performed extensively to reduce/remove overall nail length, girth, thickness, subungual debris, and necrotic tissue, by manual and/or electrical means through the use of a nail nipper and/or dremel-type mash grinder, to a more viable healthy nail plate or bed tissue 6-10 nails in total. Silver nitrate was used for any petechial bleeding as necessary. Definitive antifungal treatment options, both pharmaceutical and surgical, have been reviewed and discussed with the patient. The patient solely prefers the use of intermittent/as needed professional debridement services for their nail condition and understands the need for additional periodic treatments to maintain effectiveness in symptomatic relief - 21334 Keratoma Treatment Parring or Cutting o f Benign Hyperkeratotic Lesion(s) (-57) More than 4 Lesions - The Benign hyperkeratotic lesions, ( 10) in total, locations as stated and described in exam, were pared, and/or cut utilizing a sterile 15 blade, tissue nippers, and/or power dremel instrumentation - 32712, Q8 Progress Notes * Molly TEIXEIRA RDOB:[birth year] (73 yo F)Acc No.[id number]:06/29/2024 Progress Note Patient:?Molly TEIXEIRA R Provider:?Quentin Hendrix DPM :1950???Age:73 Y???Sex:Female D ate:06/29/2024 Address:[address] [place], [place] [id number] Pcp:Cinthya Montiel Subjective: * Chief Complaints: * ???At Risk FootcarePainful N ail(s) aggrevated by shoes and causing difficulty standing/walkingIngrown nail(s) * HPI: ???At Risk footcare:?Pt States Last PCP Visit:?Date?06/04/2024 * ROS:?General/Constitutional:?Nausea?denies.?Vomiting?denies.?Hunger Thirst?denies.?Patient complaining of?sleep disturbance.?Loss appetite?denies.?Chills?denies.?Fatigue?denies.?Fever?denies.?Night [...] than smoking?Are you an other tobacco user??No ???Drugs/Alcohol:?Drugs?Have you used drugs other than those for medical reasons in the past 12 months??No ?Alcohol Screen?Did you have a drink containing alcohol in the past year??No ?Points?0 ?Interpretation?Negative ???Miscellaneous:?Caffeine: yes, frequency:, 2-3 cups per day. ?Children: yes. ?Exercise: yes, walking. ?Marital status: . ?Occupation: Retired- [employer] * Medications:?TakingHydralazi ne-HCTZ Aspirin 81 81 MG Tablet Delayed Release 1 tablet Orally Once a day Atorvastatin Calcium 20 MG Tablet 1 tablet Orally Once a day Centrum MultiGummies Chlorthalidone 25 MG Tablet 1 tablet in the morning with food Orally Once a day Claritin , Notes to Pharmacist: allergyGabapentin 1 tablet Orally twice daily Farxiga 10 MG Tablet 1 tablet Orally Once a day HumaLOG KwikPen Latanoprost Lantus SoloStar , Notes to Pharmacist: 40 unitsLevothyroxine Sodium , Notes to Pharmacist: 112mg 1 x adayLoratadine Losartan Potassium 50 MG Tablet 1 tablet Orally Twice a day Metoprolol Succinate 100 MG Capsule ER 24 Hour Sprinkle 1 capsule Orally Once a day Nitroglycerin , Notes to Pharmacist: 0.3 mg PRNNIFEdipine CR Osmotic Omeprazole 40 MG Capsule Delayed Release 1 capsule 30 minutes before morning meal Orally twice a day Sertraline HCl , Notes to Pharmacist: ZoloftVitamin D Extra Depth Orthopedic Shoes, (1) Pair With (3) Pair Custom Heat Molded Multidensity Innersoles . Dx: NIDDM/PVD(E11.51), Hammertoe Foot Deformity(M20.41,M20.42), Preulcerative Skin Lesion(s)(L85.1) Wear Daily Taking Hydralazine-HCTZ Taking Aspirin 81 81 MG Tablet Delayed Release 1 tablet Orally Once a day Taking Atorvastatin Calcium 20 MG Tablet 1 tablet Orally Once a day Taking Centrum MultiGummies Taking Chlorthalidone 25 MG Tablet 1 tablet in the morning with food Orally Once a day Taking Claritin , Notes to Pharmacist: allergyTaking Gabapentin 1 tablet Orally twice daily Taking Farxiga 10 MG Tablet 1 tablet Orally Once a day Taking HumaLOG KwikPen Taking Latanoprost Taking Lantus SoloStar , Notes to Pharmacist: 40 unitsTaking Levothyroxine Sodium , Notes to Pharmacist: 112mg 1 x adayTaking Loratadine Taking Losartan Potassium 50 MG Tablet 1 tablet Orally Twice a day Taking Metoprolol Succinate 100 MG Capsule ER 24 Hour Sprinkle 1 capsule Orally Once a day Taking Nitroglycerin , Notes to Pharmacist: 0.3 mg PRNTaking NIFEdipine CR Osmotic Taking Omeprazole 40 MG Capsule Delayed Release 1 capsule 30 minutes before morning meal Orally twice a day Taking Sertraline HCl , Notes to Pharmacist: ZoloftTaking Vitamin D Taking Extra Depth Orthopedic Shoes, (1) Pair With (3) Pair Custom Heat Molded Multidensity Innersoles . Dx: NIDDM/PVD(E11.51), Hammertoe Foot Deformity(M20.41,M20.42), Preulcerative Skin Lesion(s)(L85.1) Wear Daily Not-Taking/PRNUrea 40 % Cream 1 application to affected area on feet Externally Twice a day Melatonin , Notes to Pharmacist: PRNSertraline HCl Medication List reviewed and reconciled with the patientNot-Taking/PRN Urea 40 % Cream 1 application to affected area on feet Externally Twice a day Not-Taking/PRN Melatonin , Notes to Pharmacist: PRNNot-Taking/PRN Sertraline HCl Medication List reviewed and reconciled with the patient * Allergies:?Amoxicillin: rash BactrimCodeineyes[Allergies Verified] Objective: * Vitals:?Ht:5ex61ie, Wt:170, BMI:35.53, Shoe size:5-6, BS:92, Ht-cm: 147.32 cm, Wt-k.11 kg. * ???Past Orders: ???Lab:HEMOGLOBIN A1C (GLYCO HEMOGLOBIN) (Order Date - 06/29/2024) (Collection Date & Time - 05/08/2024 08:52 AM) ? Value Reference Range ?TOTAL HEMOGLOBIN (HGBA1C) 7.2 * Examination: ???Vascular: ?DP PULSES(B):?0/4, RIGHT , 1/4 , LEFT.?PT PULSES(B):? 0/4, B/L.?CAPILLARY FILL TIME:? delayed, all digits, B/L.?TROPHIC CONDITION-TEXTURE/ELASTICITY/TURGOR/HAIR GROWTH(B):? decreased,?with sparse to absent hair growth, B/L.?TEMPERTURE GRADIENT(C):? decreased, cool to cool, proximal to distal, B/L.?PIGMENTATION:? rubrous, B/L.?EDEMA(C):? 2/4, non-pitting, without aching pain, B/L, Leg(s), Ankle(s), Feet.?CLAUDICATION(C):?denies, B/L.?REST PAIN:?denies, B/L.?Nails: ?NAILS are:?Elongated, overgrown, dystrophic, [...] , SUB MTH (s), 5, B/L , Plantar, Heel(s), B/L.? Assessment: * Assessment: 1.?Type 2 diabetes mellitus with diabetic peripheral angiopathy without gangrene - E11.51 (Primary)???2.?Tinea unguium - B35.1???3.?Pain in right toe(s) - M79.674???4.?Pain in left toe(s) - M79.675???5.?Ingrown nail - L60.0???Specify :Lateral nail border, TA, T5??? Plan: * Treatment: 2.?Tinea unguium?Procedure: 58696-QLNROCO NAIL, 6 OR MORE 3.?Ingrown nail?Procedure: 58828-Lfvagfkr Plate ?Procedure: 91608-Gfthjkrl Plate Each Additional * Procedures:?Debride Nail 6-10:?Nail debridement?Performance of this nail treatment by a nonprofessional would put this patients foot and overall health at risk. Therefore, debridement to affected nail(s), as described in exam, was performed extensively to reduce/remove overall nail length, girth, thickness, subungual debris, and necrotic tissue, by manual and/or electrical means through the use of a nail nipper and/or dremel-type mash grinder, to a more viable healthy nail plate or bed tissue 6-10 nails in total. Silver nitrate was used for any petechial bleeding as necessary. Definitive antifungal treatment options, both pharmaceutical and surgical, have been reviewed and discussed with the patient. The patient solely prefers the use of intermittent/as needed professional debridement services for their nail condition and understands the need for additional periodic treatments to maintain effectiveness in symptomatic relief - 54916.?Keratoma Treatment:?Parring or Cutting of Benign Hyperkeratotic Lesion(s)?(-57) More than 4 Lesions - The Benign hyperkeratotic lesions, ( 10) in total, locations as stated and described in exam, were pared, and/or cut utilizing a sterile 15 blade, tissue nippers, and/or power dremel instrumentation - 43944, Q8.?Nail Avulsion:?Location? Lateral nail border, TA, T5.?Anesthesia?was accomplished [...] and future surgical procedures to prevent recurrence (86016/32), DIABETES: Pt was advised as to the risk of delayed or nonhealing due to diabetes. Pt is to call the office with any questions, concerns, or complications, DIABETES: Matricectomy deferred due to diabetes risk.? * Procedure Codes:?31027 DEBRI DE NAIL, 6 OR MORE, Modifiers: XS 58467 Avulsion Plate, Modifiers: XS , [id number] Avulsion Plate Each Additional, Modifiers: XS , [id number] TRIM SKIN LESIONS, OVER 4, Modifiers: XS , Q8 * Follow Up:?prn * Images: * Sign off status: Completed true * Provider:?Quentin Hendrix DPM Date:?2023 Generated for Alma thompson/Ju/Amara on:?11/20/2024 12:23 PM EDT History and Physical Notes * HPI (History of Present Illness) Category Sub-Category Detail Notes Category Not es At Risk footcare Pt States Last PCP Visit: Date: Examination Category Sub-Category Detail Notes Category Not es Ingrown Nail INSPECTION: Reveals nail inc urvation, pain on palpation, groove hypertrophy, Lateral nail border, TA, T5 Dermatologic SKIN FINDINGS: Skin exam reveal s Keratotic lesion(s) located at, SUB MTH (s), 1, B/L , SUB MTH (s), 2, B/L , SUB MTH (s), 3, B/L , SUB MTH (s), 5, B/L , Plantar, Heel(s), B/L Vascular DP PULSES (B): 0/4, RIGHT , 1/4 , LEFT PT PULSES (B): 0/4, B/L CAPILLARY FILL TIME: delayed, all digits , B/L TEMPERTURE GRADIENT (C): decreased, cool to cool, proximal to distal, B/L TROPHIC CONDITION-TEXTURE/ELASTICITY/TURGOR/HAIR GROWTH (B): decreased, with sparse to absent hair gr owth, B/L EDEMA (C): 2/4, non-pitting, wi thout aching pain, B/L, Leg(s), Ankle(s), Feet CLAUDICATION (C): denies, B/L REST PAIN: denies, B/L PIGMENTATION: rubrous, B/L Nails NAILS are: Elongated, overg rown, dystrophic, lytic, greater than 3mm thick, discolored and friable with crumbly malodorous subungual debris, with pain on palpation, T1, T2, T3, T4, T6, T7, T8, T9
--- OUTSIDE RECORDS SUMMARY | 2024-11-20 12:23 | XMS_ITS | Encounter Summary ---
Author Organization [facility] Address [address] [place] [address] Care Team Providers Care Automotive Sales Manager Name Role Phone Bunny Benavidez Primary Care Provider Cinthya Montiel MD Primary Care Provider Priya Sinan Westfall MD Unavailable [phone] Encounter Details Date Type Department Care Team Description 04/17/2018 Telephone Gastroenterology - [address] [address] Kary Allred MD Social History Tobacco Use Types Packs/Day Years Used Date Smoking Tobacco: Never Smokeless Tobacco: Never Alcohol Use Standard Drinks/Week Comments Yes 0 (1 standard drink = 0.6 oz pur e alcohol) 4-5 drinks per yr Sex Assigned at Date Recorded Not on file Job Start Date Occupation Industry Not on file Not on file Not on file documented as of this encounter Miscellaneous Notes * Telephone Encounter - Kary Allred MD - 04/17/2018 12:35 PM EDT Awaiting an expert opinion on the biopsy. * Telephone Encounter - Kary Allred MD - 04/17/2018 12:35 PM EDT ----- Message from Muriel Azul L.P.N. sent at 04/17/2018 12:12 PM EDT ----- Please review documented in this encounter Plan of Treatment Not on file documented as of this encounter Visit Diagnoses Not on filedocumented in this encounter Care Teams Automotive Sales Manager Relationship Specialty Start Date End Date Bunny Benavidez [address] [place] [address] PCP - General Family Practice 12/12/17 01/15/19 Cinthya Montiel MD [address] [place] [address] PCP - General Internal Medicine 01/16/19 Sinan Berry MD [address] [place] [address] [place] [address] Account Contact Associate Cardiovascular Disease 11/06/21 documented as of this encounter
--- OUTSIDE RECORDS SUMMARY | 2024-11-20 12:23 | XMS_ITS | Encounter Summary ---
Author Organization [facility] Address [address] [place] [address] Care Team Providers Care Citrus Peeler Name Role Phone Finn De Dios Primary Care Provider Bunny Chavez Primary Care Provider [phone] Cinthya Montiel MD Primary Care Provider Priya Sinan Westfall MD Unavailable [phone] Encounter Details Date Type Department Care Team Description 07/26/2017 Commercial Sales Director Report Medical Records [address] [place] [address] Bunny Benavidez [address] [place] [address] [phone] Social History Tobacco Use Types Packs/Day Years [...] on filedocumented in this encounter Care Teams Citrus Peeler Relationship Specialty Start Date End Date Finn De Dios PCP - General Internal Medicine 08/08/15 12/11/17 Bunny Benavidez [address] [place], [place] [phone] PCP - General Family Practice 12/12/17 01/15/19 Cinthya Montiel MD [address] [place] [address] PCP - General Internal Medicine 01/16/19 Sinan Berry MD [address] [place] [address] [address] [place], [place] [phone] Railroad Car Cleaner Cardiovascular Disease 11/06/21 documented as of this encounter
--- OUTSIDE RECORDS SUMMARY | 2024-11-20 12:23 | XMS_ITS | Data Portability ---
Author Organization [facility], Main Office Address [address] 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 Name Role Phone JONA CONLEY - 2ND FLOOR OTHER Assessment Encounter Date Assessment Date Assessment LastModified by Organization Details LastModified Time 07/10/2018 07/10/2018 07/06/18 WBC 5.4, Hgb 10.2, Hct 34, Na 138, K 4.5, BUN 18, Work Manager 1.06 tkoloski Not available 07/10/2018 15:10:58 07/17/2018 07/17/2018 07/13/18 WBC 8.2, Hgb 11, Hct 35.8, Na 137, K 4.3, BUN 16, Work Manager 1.03 tkoloski Not available 07/17/2018 14:19:22 07/27/2018 07/27/2018 07/23/18 WBC 8.1, Hgb 10, Hct 32.7, Na 136, K 4.6, BUN 10, Work Manager 1 in hospital tkoloski Not available 07/27/2018 08:34:56 08/04/2018 08/04/2018 08/03/18 INR 1.35 tkoloski Not available 08/04/2018 08:44:21 Plan of Treatment Reminders Order Date Submit Date Provider Last Modified By Organization Details Last Modified Time Details Appointments None record ed. Lab None record ed. Referral None record ed. Procedures None record ed. Surgeries None record ed. Imaging None record ed. Medication Orders None record ed. Patient TargetsNo targets recorded. Patient InstructionsNo instructions recorded. Reason for Referral None Reported. Problems Name Problem SNOMED Code Status Onset Date Resolution Date Notes Provider Name and Address Organization Details Recorded Time Essential hypertension 38723357 Active 2017 DAMIAN KILLIAN [address] [facility], [address], [place], [address], [employer] 8 09:09:42 Gastroesophage al reflux disease without esophagitis 479541322 Active 2017 DAMIAN KILLIAN [address], [address], [place], [address], [facility] 8 09:09:51 Fibromyalgia 237015103 Active 2017 DAMIAN KILLIAN [address], [address], [place], [address], [facility] 8 09:10:02 Chronic kidney disease 964475232 Active 2017 DAMIAN KILLIAN [address], [address], [place], [address], [facility] 8 09:10:13 Chronic bronchitis 90375354 Active [address], [place], [address], [facility] 8 09:10:23 Ward's esophagus 338055959 Active 2017 DAMIAN KILLIAN [address], [address], [place], [address], [facility] 8 09:10:35 Psoriatic arthritis 288363310 Active 2017 DAMIAN KILLIAN [address], [address], [place], [address], [facility] 8 09:13:13 Fall Active 2017 DAMIAN KILLIAN [address], [address], [place], [address], [facility] 8 09:14:22 Fracture of tibial plateau 609558628 Active 2017 DAMIAN KILLIAN [address], [address], [place], [address], [facility] 8 09:17:58 Type 2 diabetes mellitus 24082852 Active 2017 DAMIAN KILLIAN [address], [address], [place], [address], [facility] 8 09:18:40 Anemia 065440050 Active 2017 DAMIAN KILLIAN [address], [address], [place], [address], [facility] 8 09:18:52 Acute retention of urine 322144981 Active 2017 DAMIAN KILLIAN [address], [address], [place], [address], [facility] 8 09:20:18 Anxiety 14115059 Active 2017 DAMIAN KILLIAN [address], [address], [place], [address], [facility] 8 09:45:32 Hypothyroidism 46202803 Active 2017 DAMIAN KILLIAN [address], [place], [address], [facility] 8 09:48:27 Mixed hyperlipidemia 980120556 Active 2017 Lisandro Peng MD [address], [place], [address], [facility] 8 13:05:14 Wound dehiscence 775710246 Active 2017 DAMIAN KILLIAN [address], [address], [place], [address], [facility] 8 10:50:12 Glaucoma 11908400 Active 2017 DAMIAN KILLIAN [address], [address], [place], [address], [facility] 8 16:02:00 Pulmonary embolism 65614355 Active 2017 DAMIAN KILLIAN [address], [address], [place], [address], [facility] 8 08:35:00 Problem Notes None recorded. Medical Equipment None Reported. Allergies Allergen ID Allergen Name Allergen Category Reaction Reaction Severity Criticality Documentation Date Start Date Code Code System Note Provider Name and Address Organization Details Recorded Time 96941 Product containin g penicilli n (product) medicatio n Not available Not available Not available 05/10/2018 05751 8001 SNOMED Not Available Not Available Not Available 69663 codeine medicatio n Not available Not available Not available 05/10/2018 2670 RxNorm Not Available Not Available Not Available 72963 Substance with sulfonami de structure and antibacte rial mechanism of action (substanc e) medicatio n Not available Not available Not available 05/10/2018 12326 8003 SNOMED Not Available Not Available Not Available Vitals Date Recorded Oxygen saturation Oxygen saturation in Arterial blood by Pulse oximetry Heart rate Respiratory rate Body temperature Systolic blood pressure Diastolic blood pressure Provider Name and Address Organization Details Last Updated DateTime 8 94 % 94 % 82 /min 18 /min 97.5 [degF] 128 mm[Hg] 74 mm[Hg] DAMIAN KILLIAN [address], [place], [address], [employer] 8 15:07:36 Date Recorded Body temperature Heart rate Respiratory rate Oxygen saturation Oxygen saturation in Arterial blood by Pulse oximetry Systolic blood pressure Diastolic blood pressure Provider Name and Address Organization Details Last Updated DateTime 8 97.3 [degF] 88 /min 18 /min 97 % 97 % 126 mm[Hg] 70 mm[Hg] DAMIAN KILLIAN [address] [facility], [address], [place], [address], [facility] 8 14:08:48 Date Recorded Body temperature Heart rate Respiratory rate Oxygen saturation Oxygen saturation in Arterial blood by Pulse oximetry Systolic blood pressure Diastolic blood pressure Provider Name and Address Organization Details Last Updated DateTime 8 97.9 [degF] 81 /min 18 /min 97 % 97 % 127 mm[Hg] 65 mm[Hg] DAMIAN KILLIAN [address] [facility], [address], [place], [address], [employer] 8 08:08:07 Date Recorded Body temperature Heart rate Respiratory rate Oxygen saturation Oxygen saturation in Arterial blood by Pulse oximetry Systolic blood pressure Diastolic blood pressure Provider Name and Address Organization Details Last Updated DateTime 8 98.2 [degF] 82 /min 18 /min 94 % 94 % 118 mm[Hg] 64 mm[Hg] DAMIAN KILLIAN [address] [facility], [facility] [address], [place], [address], [facility] [employer] 8 08:40:18 Date Recorded Systolic blood pressure Diastolic blood pressure Provider Name and Address Organization Details Last Updated DateTime 07/28/2018 142 mm[Hg] 76 mm[Hg] Lisandro Peng MD [address] [facility], [address], [place], [address], [facility] [employer] [facility] 07/28/2018 09:48:35 Social History Question Answer Notes LastModified by Organizat ion Details LastModified Time Tobacco Smoking Status Never Smoker Not Available [facility] 06/03/2020 03:13:23 Do You Have An Advance Directive? Yes DNR/DNI/DNH-n o Non Invasive Ventilation, No Dialysis, No Nutrition And No Hydration [id number] Information not available 06/03/2020 What Is Your Level Of Alcohol Consumption? None [id number] Information not available 06/03/2020 How Much Tobacco Do You Chew? None [id number] Information not available 06/03/2020 Do You Have A Medical Power Of Service Desk Manager? No [id number] Information not available 06/03/2020 What Was The Date Of Your Most Recent Tobacco Screening? 08/04/2018 [id number] Information not available 06/03/2020 Sex: Unknown Functional Status None recorded. Mental Status None recorded. Family History Nothing Reported Notes:N/C Medical History No medical history recorded. Gynecological HistoryNo gynecological history recorded. Obstetrics History GPAL:G 0 P 0 0 0 0 Immunizations Vaccine Type Date Status Note Provider Nam e and Address Organization Details Recorded Time influenza, unspecified formulation 04/18/2018 completed Leanne mcgraw, [facility] 11/17/2018 14:59:07 Past Encounters Encounter ID Performer Location Encounter Start Date Encounter Closed Date Diagnosis/Indication Diagnosis SNOMED-CT Code Diagnosis ICD10 Code Diagnosis Note [id number] DAMIAN KILLIAN [address] [address] 05/10/2018 08:58:32 05/12/2018 11:05:05 Fracture of tibial plateau 126181429 S82.142D PT/OT eval and treatNWB with knee immobilize r in plac[place] knee flexion lovenox 40 mg qd-continu e while in rehab and when discharged she will need to take ASA 325 mg qd until ortho saysoxycod one q 6 hrs prntylenol prndry dsg qd follow up with ortho-Dr Carey Acute rete ntion of urine 797822861 R33.8 attempt removal in 3-4 days-plann ed for tuesdayflom ax 0.4 mg qdmonitor output Anemia 849311511 D64.89 follow labs for possible need to transfuse Fall R29.6 PT/OT eval and treatmonit or for safety Type 2 kulwinder betes mellitus 33023167 E11.9 consistent carbohydra te dietSSIlan tus 10 units qdwill have A1c drawnmonit or for hypo/hyper glycemia Psoriatic arthritis 1563 31854 L40.59 monitor Chronic bronchitis 75483 004 J41.8 ventolin HFA q 4 hrs prnmonitor respirator y status Chronic ki dney disease 493833632 N18.3 avoid nephrotoxi c drugsbasel ine creatinine 1.5monitor labs Fibromyalgia 147191178 M 79.7 neurontin 600 mg bidwill increase night dose to 1200 mg as she takes at homemonito r pain Gastroesop hageal reflux disease without esophagitis 062388786 K21.9 omeprazole 20 mg bidmonitor for symptoms Essential hypertension 91745168 I10 low sodium dietatorva statin 20 mg qdlosartan 25 mg qdmetoprol ol succ 100 mg qdnifedipi ne 90 mg qdmonitor b/p and labs Anxiety 27309630 F41.1 xanax 0.5 mg bidpaxil 20 mg qdmonitor moodpsych eval and treat prn Hypothyroidism 02799435 E03.8 levothyrox ine 100 mcg qdmonitor TSHwill check with next draw [id number] Lisandro Peng MD [facility] [address] 05/15/2018 12:46:54 05/23/2018 15:05:26 Fracture of tibial plateau 675839693 S82.112D s/p mechanical fall resulting in comminuted intraartic ular tibial plateau fracture left. Initially required external fixator and fasciotomy then eventual internal fixation. post op anemia required 2 units pRBC. follow ortho recs. monitor for pain control and constipati on. PT OT eval and treatloven ox 40 mg qd for DVT prophylaxi s Anemia due to blood loss 951652822 D50.0 required tx with 2 units pRBCrepeat cbc and monitor need for repeat tx Chronic ki dney disease 311301319 N18.3 monitor renal functionav oid nephrotoxi c meds Acute rete ntion of urine 164528577 R33.8 flomax 0.4 mg qdmonitor for sxfoley outurology eval prn Type 2 kulwinder betes mellitus 73522418 E11.9 lantus 10 units qdmonitor blood glucose Essential hypertension 33518585 I10 nifedipine 90 mg qdlosartan 25 mg qdmetoprol ol 100 mg qd Mixed hyperlipidemia 267 796492 E78.2 lipitor 20 mg qdcontinue Hypothyroidism 18703550 E03.8 synthroid 100 mcg qdmonitor tsh prn Ward's esophagus 3029 19115 K22.70 omeprazole 20 mg bidmonitor for sx control [id number] DAMIAN KILLIAN [facility] [address] 05/25/2018 08:55:31 05/30/2018 12:30:35 Anemia 986638435 D64.89 labs stable at presentshe feels tiredfollo w labs Hypothyroidism 30078400 E03.8 levothyrox ine was 100 mcg qdTSH was 16.27 on 05/11/18inc reased levothyrox ine to 125 mcg qdwill recheck TSH in 4 weeks Type 2 kulwinder betes mellitus 15002957 E11.9 consistent carbohydra te dietSSIlan tus 10 units qdA1c is 7 on 05/11/18mon itor for hypo/hyper glycemia Dry eyes 280401608 H04.1 23 she is c/o dry eyesasking for natural tearswill order as neededmoni tor for resolution -may be allergic in nature and may need to switch it [id number] DAMIAN KILLIAN [facility] [address] [address] 06/02/2018 09:12:55 06/06/2018 10:51:41 Anxiety 03723810 F41.1 xanax 0.5 mg tidpaxil 20 mg qdmonitor moodpsych eval and treat prn Fibromyalgia 794984082 M 79.7 neurontin 600 mg bid and 1200 mg at hsmonitor pain Fracture o f tibial plateau 161359253 S82.142D NWB with knee immobilize r in placeno knee flexion lovenox 40 mg qd-continu e while in rehab and when discharged she will need to take ASA 325 mg qd until ortho saysoxycod one q 6 hrs prntylenol prndry dsg qdsurgical incision has necrotic areas-will have nurse call surgeon-un sure if they are aware follow up with ortho-Dr Carey [id number] DAMIAN KILLIAN [facility] [address] 06/07/2018 08:06:03 06/09/2018 10:34:31 Anxiety 38649639 F41.1 xanax 0.25 mg bidpaxil 20 mg qdmonitor mooddoes not feel that she has increased anxietypsy ch eval and treat prn Fibromyalgia 249749747 M 79.7 neurontin 600 mg bid and 1200 mg at hsmonitor pain Fracture o f tibial plateau 415823945 S82.142D NWBkeep knee immobilize r off per orthono knee flexion lovenox 40 mg qdoxycodon e q 6 hrs prntylenol prndry dsg qdsurgical incision has necrotic areas-surg eons made aware-no brace on for now follow up with ortho-Dr Katherin schmidt this week [id number] DAMIAN KILLIAN [facility] [address] [address] 06/09/2018 08:45:10 06/12/2018 15:16:08 Fracture of tibial plateau 394008309 S82.142D NWB with knee immobilize r in placeno knee flexion ASA 325 mg qdoxycodon e q 6 hrs prntylenol prnwill see wound clinicfoll ow up with ortho-Dr Carey Acute rete ntion of urine 373541756 R33.8 flomax 0.4 mg qdfollow up with PCP Anemia 766234771 D64.89 stable at presentfol low up with PCP Type 2 kulwinder betes mellitus 35360806 E11.9 consistent carbohydra te dietlantus 10 units qdfollow up with PCP Psoriatic arthritis 1563 81496 L40.59 follow up with PCP Chronic bronchitis 06449 004 J41.8 ventolin HFA q 4 hrs prnfollow up with PCP Chronic ki dney disease 692282142 N18.3 avoid nephrotoxi c drugsbasel ine creatinine 1.5follow up with PCP Fibromyalgia 640556481 M 79.7 neurontin 600 mg q am and 1200 mg q hsfollow up with PCP Gastroesop hageal reflux disease without esophagitis 261336181 K21.9 omeprazole 20 mg bidfollow up with PCP Essential hypertension 48085647 I10 low sodium dietatorva statin 20 mg qdlosartan 25 mg qdmetoprol ol succ 100 mg qdnifedipi ne 90 mg qdfollow up with PCP Anxiety 72208253 F41.1 xanax 0.25 mg bidpaxil 20 mg qdfollow up with PCP Hypothyroidism 66030776 E03.8 levothyrox ine 125 mcg qdwill need a recheck of TSH in about 4 weeks follow up with PCP [id number] DAMIAN KILLIAN [address] [address] 06/16/2018 07:59:46 07/06/2018 13:52:19 Fall 0753657 R29.6 PT/OT eval and treatmonit or for safety Acute urin ninoska tract infection 336164108 N30.00 augmentin bid x 3 daysmonito r for resolution Hypothyroidism 42736779 E03.8 levothyrox ine 125 mcg qdwill need a recheck of TSH in about 4 weeks monitor labs Mixed hyperlipidemia 267 417102 E78.2 atorvastat in 20 mg qdmonitor labs Anxiety 62194998 F41.1 xanax 0.25 mg bidpaxil 20 mg qddiscusse d risk vs benefit of xanax and paxilmonit or moodpsych prn Anemia 126319419 D64.89 stable at presentmon itor labs Type 2 kulwinder betes mellitus 85461060 E11.9 consistent carbohydra te dietlantus 10 units qdmonitor for hypo/hyper glycemia Fracture o f tibial plateau 197395910 S82.142D NWBASA 325 mg qdoxycodon e q 6 hrs prntylenol prnwound clinicfoll ow up with ortho-Dr Carey Chronic ki dney disease 444299802 N18.3 avoid nephrotoxi c drugsbasel ine creatinine 1.5monitor labs Fibromyalgia 414235978 M 79.7 neurontin 600 mg q am and 1200 mg q hsdiscusse d risk vs benefit of neurontin monitor Gastroesop hageal reflux disease without esophagitis 559052168 K21.9 omeprazole 20 mg bidmonitor Essential hypertension 10014680 I10 low sodium dietlosart an 25 mg qdmetoprol ol succ 100 mg qdnifedipi ne 90 mg qdmonitor b/p and labs Acute rete ntion of urine 895926495 R33.8 flomax 0.4 mg qdmonitor [id number] Lisandro Peng MD [facility] [address] 06/20/2018 13:57:59 07/06/2018 13:58:28 Dehiscence of surgical wound 23751560 T81.31XD see HPILLE wound dehiscence post prior external fixator and fasciotomy will await surgical recs and transfer to hospital for further interventi onmonitor not currently on Ab however awaiting transfer to hospital at this timecurren tly stablecont inue to monitor for change in presentati on Chronic ki dney disease 325929715 N18.3 see aboveavoid nephrotoxi c meds Anxiety 02557792 F41.1 currently due to upcoming surgical interventi onconsider meds prn Anemia 253120920 D50.8 see above Fracture o f tibial plateau 656550795 S82.112D See aboveiniti ally presented post mechanical fall resulting in comminuted intraartic ular tibial plateau fracture left [id number] DAMIAN KILLIAN [facility] [address] 06/26/2018 10:42:52 07/11/2018 12:04:09 Wound dehiscence 838711543 T81.32XD wound vac-change M-W-Flevaq uin 750 mg qd til 08/01/18ri fampin 300 mg bid til 08/01/18pr obioticmon itor sitefollow up with ID and surgeon Fracture o f tibial plateau 682930918 S82.142D NWBoxycodo ne 5 mg q 6 hrs prntylenol prnfollow up with ortho-Dr Carey Mixed hyperlipidemia 267 312918 E78.2 atorvastat in 20 mg qdmonitor labs Hypothyroidism 78174551 E03.8 levothyrox ine 125 mcg qdwill need a recheck of TSH in about 4 weeks monitor labs Anxiety 11132649 F41.1 xanax 0.25 mg bidpaxil 20 mg qddiscusse d risk vs benefit of xanax and paxilmonit or moodpsych prn Anemia 047263752 D64.89 stable at presentmon itor labs Type 2 kulwinder betes mellitus 32942947 E11.9 consistent carbohydra te dietlantus 10 units qdSSI x 1 week and reassessmo nitor for hypo/hyper glycemia Psoriatic arthritis 1563 56757 L40.59 monitor Ward's esophagus 3029 12925 K22.70 sees GIfollow up with GI as needed Chronic bronchitis 30099 004 J41.8 ventolin HFA q 4 hrs prnmonitor respirator y status Chronic ki dney disease 446509581 N18.3 avoid nephrotoxi c drugsbasel ine creatinine 1.5monitor labs Fibromyalgia 400277984 M 79.7 neurontin 300 mg q biddiscuss ed risk vs benefit of neurontin monitor Gastroesop hageal reflux disease without esophagitis 687108079 K21.9 omeprazole 20 mg bidmonitor Essential hypertension 86851151 I10 low sodium dietlosart an 25 mg qdmetoprol ol succ 100 mg qdnifedipi ne 90 mg qdmonitor b/p and labs Acute rete ntion of urine 448057407 R33.8 flomax 0.4 mg qdmonitor [id number] [facility] [address] 07/03/2018 15:40:41 07/11/2018 12:09:27 Wound dehiscence 365976766 T81.32XD wound vac-change M-W-Flevaq uin 750 mg qd til 08/01/18ri fampin 300 mg bid til 08/01/18pr obioticmon itor sitefollow up with surgeon-& ID. Fracture o f tibial plateau 466305062 S82.142D NWBoxycodo ne 5 mg q 6 hrs prntylenol 650 q 4 hrs prnfollow up with ortho-Dr Carey Mixed hyperlipidemia 267 771132 E78.2 atorvastat in 20 mg qdmonitor labs Hypothyroidism 05745626 E03.8 levothyrox ine 125 mcg qdwill need a recheck of TSH in about 4 weeks monitor labs Anxiety 53659888 F41.1 xanax 0.25 mg bidpaxil 20 mg qdmonitor moodpsych eval prn. Anemia 009858915 D64.89 stable at presentmon itor labs Type 2 kulwinder betes mellitus 34818290 E11.9 consistent carbohydra te dietlantus 10 units qdSSI x 1 week and reassessmo nitor for hypo/hyper glycemia Psoriatic arthritis 1563 53730 L40.59 monitor Ward's esophagus 3029 35530 K22.70 sees GIfollow up with GI as needed Chronic bronchitis 00965 004 J41.8 ventolin HFA q 4 hrs prnmonitor respirator y status Chronic ki dney disease 424723316 N18.3 avoid nephrotoxi c drugsbasel ine creatinine 1.5monitor labs Fibromyalgia 940088006 M 79.7 neurontin 300 mg q bidmonitor pain. Gastroesop hageal reflux disease without esophagitis 914997926 K21.9 omeprazole 20 mg bidmonitor Essential hypertension 92350189 I10 low sodium dietlosart an 25 mg qdmetoprol ol succ 100 mg qdnifedipi ne 90 mg qdmonitor b/p and labs Acute rete ntion of urine 714829023 R33.8 flomax 0.4 mg qdmonitor for sx Acute diarrhea 232326967 R19.7 monitor for change in bowel habitssend for c diff if worsening [id number] DAMIAN KILLIAN [facility] [place] [address] 07/10/2018 15:06:40 07/13/2018 12:07:23 Wound dehiscence 042392901 T81.32XD wound vac-change M-W-Flevaq uin 750 mg qd til 08/01/18ri fampin 300 mg bid til 08/01/18pr obioticmon itor sitefollow up with ID and surgeon Anxiety 42914263 F41.1 xanax 0.25 mg bidpaxil 20 mg qdmonitor moodpsych prn Gastroesop hageal reflux disease without esophagitis 596568118 K21.9 omeprazole 20 mg bidmonitor [id number] DAMIAN KILLIAN [address] [place] [address] 07/17/2018 13:48:39 07/19/2018 14:11:24 Wound dehiscence 814712786 T81.32XD wound vac-change M-W-Flevaq uin 750 mg qd til 08/01/18ri fampin 300 mg bid til 08/01/18pr obioticfol low up with ID and surgeonort ho responsibl e for wound vac Fracture o f tibial plateau 304376673 S82.142D NWBoxycodo ne 5 mg q 6 hrs prntylenol prnfollow up with ortho-Dr Carey Mixed hyperlipidemia 267 502323 E78.2 atorvastat in 20 mg qdfollow up with PCP Hypothyroidism 99123105 E03.8 levothyrox ine 125 mcg qdwill need a recheck of TSH in about 3 weeks follow up with PCP Anxiety 59940254 F41.1 xanax 0.25 mg bidpaxil 20 mg qdfollow up with PCP Anemia 077539308 D64.89 stable at presentfol low up with PCP Type 2 kulwinder betes mellitus 11157309 E11.9 consistent carbohydra te dietlantus 10 units qdfollow up with PCP Psoriatic arthritis 1563 45190 L40.59 follow up with PCP Ward's esophagus 3029 97768 K22.70 sees GIfollow up with GI as needed Chronic bronchitis 46102 004 J41.8 ventolin HFA q 4 hrs prnfollow up with PCP Chronic ki dney disease 309447554 N18.3 avoid nephrotoxi c drugsbasel ine creatinine 1.5follow up with PCP Fibromyalgia 611023067 M 79.7 neurontin 300 mg q bidfollow up with PCP Gastroesop hageal reflux disease without esophagitis 155495213 K21.9 omeprazole 20 mg bidfollow up with PCP Essential hypertension 64180886 I10 low sodium dietlosart an 25 mg qdmetoprol ol succ 100 mg qdnifedipi ne 90 mg qdfollow up with PCP Acute rete ntion of urine 537399603 R33.8 flomax 0.4 mg qdfollow up with PCP [id number] DAMIAN KILLIAN [facility] [address] [address] 07/27/2018 08:00:19 08/11/2018 13:41:31 Hypothyroidism 51172035 E03.8 levothyrox ine 125 mcg qd-does not appear that she was taking this-will reinstate itwill need a recheck of TSH in about 2 weeks monitor Pulmonary embolism 87843 003 I26.99 lovenox bridge with coumadinmo nitor INRlovenox 110 mg q 24 hrscoumadi n 5 mg qdmonitor respirator y status Wound dehiscence 8343384 08 T81.32XD wound vac-change M-W-Flevaq uin 750 mg qd til 08/01/18ri fampin 300 mg bid til 08/01/18pr obioticoxy codone 5 mg q 6 hrs prntylenol prnfollow up with ID and surgeonort ho responsibl e for wound vac Mixed hyperlipidemia 267 874695 E78.2 atorvastat in 20 mg qdmonitor labs Anxiety 09241087 F41.1 xanax 0.25 mg bidpaxil 20 mg qdspoke with patient with risk vs benefit of xanax and paxilmonit or anxietypsy ch eval and treat prn Anemia 085874773 D64.89 stable at presentmon itor labs Type 2 kulwinder betes mellitus 30458122 E11.9 consistent carbohydra te dietlantus 10 units qdSSImonit or for s/s of hypo/hyper glycemia Fall R29.6 PT/OT eval and treatmonit or for safety Chronic ki dney disease 817473108 N18.3 avoid nephrotoxi c drugsbasel ine creatinine 1.5monitor labs Fibromyalgia 433976768 M 79.7 neurontin 300 mg bidspoke with patient about risk vs benefit of neurontin monitor for pain Gastroesop hageal reflux disease without esophagitis 635593596 K21.9 omeprazole 20 mg bidmonitor for symptoms Essential hypertension 21099431 I10 low sodium dietlosart an 25 mg qdmetoprol ol succ 100 mg qdnifedipi ne 90 mg qdmonitor b/p and labs Chronic bronchitis 79745 004 J41.8 ventolin HFA q 4 hrs prnmonitor Glaucoma 76682762 H40.89 latanopros t 1 gtt both eyes qdmonitor Acute rete ntion of urine 746032991 R33.8 flomax 0.4 mg qdmonitor for retention [id number] Lisandro Peng MD [address] [place] [address] 07/28/2018 09:21:43 08/11/2018 13:45:42 Pulmonary embolism 83174587 I26.99 provoked PElovenox bridge with coumadinmo nitor and adjust coumadind/ c lovenox when > 2 Hypothyroidism 74002290 E03.8 significan t elevation of tshwill restart prior synthroid 125 mcg qdrecheck tsh in 4 weeks Wound dehiscence 4285556 08 T81.32XD wound infection post surgical repairLeva christa 750 mgrifampin 300 mg qd to complete courseadd probioticf ollow up with ortho and IDmonitor site Mixed hyperlipidemia 267 671164 E78.2 lipitor 20 mg qdcontinue Anxiety 00754661 F41.1 xanax 0.25 mg bidpaxil 20 mg qdspoke with patient with risk vs benefit of xanax and paxilmonit or anxietypsy ch eval and treat prn Anemia 350688813 D64.89 monitor cbc and need for tx Type 2 kulwinder betes mellitus 23491114 E11.9 consistent carbohydra te dietlantus 10 units qdSSImonit or for s/s of hypo/hyper glycemia Fall R29.6 PT/OT eval and treatmonit or fall risk Chronic ki dney disease 300117560 N18.3 baseline renal failuremon itor renal functionav oid nephrotoxi c meds as able Gastroesop hageal reflux disease without esophagitis 956310726 K21.0 baseline GERD with Barrettsom eprazole 20 mg bidmonitor for symptoms Essential hypertension 19824929 I10 losartan 25 mg qd metoprolol succ 100 mg qdnifedipi ne 90 mg qdmonitor b/p and labs Chronic bronchitis 25700 004 J41.8 ventolin HFA q 4 hrs prnmonitor Acute rete ntion of urine 827837828 R33.8 hx of urinary retentionm aintained onflomax 0.4 mg qdmonitor for retention 81831 DAMIAN KILLIAN [facility] [address] [place] [address] 08/04/2018 08:39:45 08/11/2018 14:31:57 Fracture of tibial plateau 570349844 S82.142D NWBoxycodo ne 5 mg q 6 hrs prntylenol prnfollow up with ortho-Dr Carey Pulmonary embolism 33688 003 I26.99 lovenox bridge with coumadinmo nitor INRlovenox 110 mg q 24 hrscoumadi n 6.5 mg qdINR on Tuesdayfoll ow up with PCP Anemia 214293257 D64.89 stable at presentfol low up with PCP Chronic ki dney disease 897128750 N18.3 avoid nephrotoxi c drugsbasel ine creatinine 1.5follow up with PCP Mixed hyperlipidemia 267 842244 E78.2 atorvastat in 20 mg qdfollow up with PCP Hypothyroidism 35394703 E03.8 levothyrox ine 100 mcg qdwill need TSH followed closelyfol low up with PCP Type 2 kulwinder betes mellitus 54218822 E11.9 consistent carbohydra te dietlantus 10 units qdSSIfollo w up with PCP Fall R29.6 follow up with PCP Fibromyalgia 923341665 M 79.7 neurontin 300 mg bidfollow up with PCP Gastroesop hageal reflux disease without esophagitis 999560005 K21.9 omeprazole 20 mg bidfollow up with PCP Essential hypertension 91582767 I10 low sodium dietlosart an 25 mg qdmetoprol ol succ 100 mg qdnifedipi ne 90 mg qdfollow up with PCP Acute rete ntion of urine 506614931 R33.8 flomax 0.4 mg qdfollow up with PCP Glaucoma 47427412 H40.89 latanopros t 1 gtt both eyes qdfollow up with PCP Anxiety 11643856 F41.1 xanax 0.25 mg bidpaxil 20 mg qdfollow up with PCP Chronic bronchitis 65496 004 J41.8 ventolin HFA q 4 hrs prnfollow up with PCP Wound dehiscence 7753211 08 T81.32XD wound vac-change M-W-Foxyco done 5 mg q 6 hrs prn tylenol prnzinc 220 mg qdvitamin C 500 mg qdcomplete d antibiotic therapyfol low up with ID and surgeonort ho responsibl e for wound vac orders Health Concerns Section Related Observation LastModified by Organization Detai ls LastModified Time None Recorded Concern Status LastModified by Organization Details LastModified Time None Recorded Advance Directives Directive Y: DNR/DNI/DNH-no non invasi ve ventilation, no dialysis, no nutrition and no hydration Payers Encounter Date Sequence Insurance Name Policy Number Policy Silveira Covered Member ID Silveira Member ID Guarantor Name 07/10/2018 1 [facility] - MEDICARE PREFERRED (MEDICARE REPLACEMENT HMO) JAIDEN Teixeira [id number] 1 Molly Teixeira 07/17/2018 1 [facility] - MEDICARE PREFERRED (MEDICARE REPLACEMENT HMO) JAIDEN Teixeira [id number] 1 Molly Teixeira 07/27/2018 1 [facility] - MEDICARE PREFERRED (MEDICARE REPLACEMENT HMO) JAIDEN Teixeira [id number] 1 Molly Teixeira 07/28/2018 1 [facility] - MEDICARE PREFERRED (MEDICARE REPLACEMENT HMO) JAIDEN Teixeira [id number] 1 Molly Teixeira 08/04/2018 1 [facility] - MEDICARE PREFERRED (MEDICARE REPLACEMENT HMO) JAIDEN Teixeira [id number] 1 Molly Teixeira Notes Date Note Type Note Provider Name and Address Organization Details Recorded Time 8 text/htm l A 67 year old female being seen for a acute rounding visit. She has been doing well with the wound vac. She continues to be NWB. She remains on antibiotics. She has had no concerns. Staff notes no concerns. She is a little sad about being layed up for so long. But she is trying to keep a positive attitude. Brightens up when she talks about her granddaughter. VONDA CHASETOSINJAC, HUMAN RESOURCES RECEPTIONIST [address] [facility], [address], [place], [address], [employer] 07/10/2018 16:06:59 8 text/htm l A 67 year old female being seen for a discharge summary. Patient is being discharged back home with services. She will continue to have the wound vac in place and ortho will follow up with the orders. Staff has no concerns with her discharging home. They have been working with the ortho for wound vac orders. She has been in better spirits this admission. She had some hardware removed this time. She will need to continue to follow up with ortho. Medical history of hyperlipidemia, hypothyroidism, anxiety, anemia, DM, fall, Ward's esophagus, glaucoma, CKD. GERD, HTN and fibromyalgia. VONDA DAMIAN BERNAL [address] [facility], [address], [place], [address], [employer] 07/17/2018 14:31:10 8 text/htm l A 67 year old female being seen for a initial intake note. She is well known to us for multiple stays due to a fracture of tibial plateau on left that ended up with infection and wound dehiscence. She presented to the [facility] er with chest pain and a pe was found on CT scan. She was started on a heparin gtt and then switched to lovenox bridge to coumadin. The lovenox will be discontinued once her INR is therapeutic for two consecutive readings. The chest ct revealed a distal left pulmonary artery that extends to the anterior and lateral segments of the left lower lobe and a smaller pulmonary embolus involving the origin/proximal segments of a few left upper lobe segmental branches, including the posterior branch. She did not require any oxygen. She was also found to have some urinary retention that required her to be cathed once. She has a history of this. She was also found to have a elevated TSH of 19.65 and she was noted to not have levothyroxine on her medication list. The hospital assumed she was not on it and wanted us to initiate. She was discharged on levothyroxine 125 mcg from here previous and needed a follow up TSH in three weeks. Question of medication compliance when out of here. The wound vac was removed in the hospital and will need to be reapplied here. Tuesday, Tuesday and Tuesday dsg changes. She is to continue on levofloxacin 750 mg qd and rifampin 300 mg bid to complete for 6 weeks. End date is 08/01/18. She has been returned here for continued care and rehab. Medical history of DM, falls, anemia, urinary retention, hyperlipidemia, glaucoma, GERD, CKD, fibromyalgia and HTN. DAMIAN KILLIAN [address] [facility], [address], [place], [address], [facility] [employer] 07/27/2018 09:50:09 8 text/htm l Patient is a 67 yo female admit from hospital admit from hospital after presenting with chest and abd pain. Patient dx with pulmonary embolism and started on heparin drip, then transitioned to lovenox bridge to coumadin. Patient with recent PMH signficant for Left tibial plateau fracture s/p surgical correction complicated by infection and wound dehiscence with wound vac placement. Patient had returned home from SNF prior to presenting to ED for this most recent hospitalization. PMH significant forhtnhypothyroidurinary retentiongerd with barrettsanemiadmhldcrf admit to facility for continued care and therapy Lisandro Peng MD [address] [facility], [address], [place], [address], [employer] 07/28/2018 09:52:27 8 text/htm l A 67 year old female being seen for a discharge note. She is well known to us for multiple stays due to a fracture of tibial plateau on left that ended up with infection and wound dehiscence. She presented to the [facility] er with chest pain and a pe was found on CT scan. She was started on a heparin gtt and then switched to lovenox bridge to coumadin. The lovenox will be discontinued once her INR is therapeutic for two consecutive readings. The chest ct revealed a distal left pulmonary artery that extends to the anterior and lateral segments of the left lower lobe and a smaller pulmonary embolus involving the origin/proximal segments of a few left upper lobe segmental branches, including the posterior branch. She did not require any oxygen. She was also found to have some urinary retention that required her to be cathed once. She has a history of this. She was also found to have a elevated TSH of 19.65 and she was noted to not have levothyroxine on her medication list. The hospital assumed she was not on it and wanted us to initiate. She was discharged on levothyroxine 125 mcg from here previous and needed a follow up TSH in three weeks. Question of medication compliance when out of here. The wound vac was placed back on here. She has completed her antibiotic therapy. She is being discharged home with services. Her PCP will need to follow up on her INRs and her lovenox bridge. She will need to follow up with ortho. Medical history of DM, falls, anemia, urinary retention, hyperlipidemia, glaucoma, GERD, CKD, fibromyalgia and HTN. DAMIAN KILLIAN [address] [facility], [address], [place], [address], [facility] - [employer] 08/04/2018 10:48:19 OBGyn Episode No OBEpisode recorded.
--- OUTSIDE RECORDS SUMMARY | 2024-11-20 12:23 | XMS_ITS | Encounter Summary ---
Author Organization [facility] Address [address] [place] [address] Care Team Providers Care Parts Advisor Name Role Phone ParthFinn kumar Primary Care Provider Bunny Chavez Primary Care Provider [phone] Cinthya Montiel MD Primary Care Provider Sinan Wild MD Unavailable [phone] Encounter Details Date Type Department Care Team Description 12/09/2017 Telephone Gastroenterology - [place] [address] [place] [address] Nurse, Gastro/[facility] [address] [place] [address] Social History Tobacco Use Types Packs/Day Years Used Date Smoking Tobacco: Never Alcohol Use Standard Drinks/Week Comments No 0 (1 standard drink = 0.6 oz pur e alcohol) Sex Assigned at Date Recorded Not on file Job Start Date Occupation Industry Not on file Not on file Not on file documented as of this encounter Miscellaneous Notes * Telephone Encounter - Viry Bella - 12/12/2017 9:10 AM EDT I called patient's pcp and requested the notes. They will fax over to us. * Telephone Encounter - Van Polk R.N. - 12/09/2017 2:31 PM EDT Patient has not seen a primary doctor or GI MD for about 2 years. Please let patient schedule an appointment for her primary doctor or a copy of a recent visit at least within a year from the scheduled procedure. THanks! documented in this encounter Plan of Treatment Not on file documented as of this encounter Visit Diagnoses Not on filedocumented in this encounter Care Teams Parts Advisor Relationship Specialty Start Date End Date Finn De Dios PCP - General Internal Medicine 08/08/15 12/11/17 Bunny Benavidez [address] [place] [address] PCP - General Family Practice 12/12/17 01/15/19 Cinthya Montiel MD [address] [place] [address] PCP - General Internal Medicine 01/16/19 Sinan Berry MD [address] [place] [address] [place] [address] Featheredge Machine Operator Cardiovascular Disease 11/06/21 documented as of this encounter
--- OUTSIDE RECORDS SUMMARY | 2024-11-20 12:24 | XMS_ITS | Encounter Summary ---
Author Organization [facility] Address [address] [place] [address] Care Team Providers Care Program Project Analyst Name Role Phone Cinthya Montiel MD Primary Care Provider Priya Sinan Westfall MD Unavailable [phone] Encounter Details Date Type Department Care Team Description 06/26/2019 [employer] Consultant Report Medical Records [address] [place] [address] Mikel Bunch MD Social History Tobacco Use [...] on filedocumented in this encounter Care Teams Program Project Analyst Relationship Specialty Start Date End Date Cinthya Montiel MD PCP - General Internal Medicine 01/16/19 Sinan Berry MD [address] [place] [address] [address] [place] [address] [employer] Cardiovascular Disease 11/06/21 documented as of this encounter
--- OUTSIDE RECORDS SUMMARY | 2024-11-20 12:24 | XMS_ITS | Encounter Summary ---
Author Organization [facility] Address [address] [place] [address] Care Team Providers Care Canal Tender Name Role Phone Cinthya Montiel MD Primary Care Provider Priya Sinan Westfall MD Unavailable [phone] Encounter Details Date Type Department Care Team Description 07/17/2021 SCAN Medical Records [address] [place] [address] Cinthya Montiel MD Social History Tobacco Use [...] Date/Time Associated Diagnosis Comments OUTSIDE LAB Routine 07/17/2021 documented in this encounter Results * OUTSIDE LAB (07/17/2021) Provider Default LAB documented in this encounter Visit Diagnoses Not on filedocumented in this encounter Care Teams Canal Tender Relationship Specialty Start Date End Date Cinthya Montiel MD PCP - General Internal Medicine 01/16/19 Sinan Berry MD [address] [place] [address] [address] [place] [address] Desk Pen Set Assembler Cardiovascular Disease 11/06/21 documented as of this encounter
--- OUTSIDE RECORDS SUMMARY | 2024-11-20 12:24 | XMS_ITS ---
Author Organization [facility] adelso [place] Address [address] [place] [address] Care Team Providers Care Tobacco Stripper Hand Name Role Phone Cinthya Montiel Primary Care Provider Unavailab Quentin Garcia Unavailable [phone] Cinthya Montiel Unavailable Unavailable Allergies Allergen (clinical drug ingredient) Drug/Non Drug Allergy documented on EMR Reaction Allergy Type Onset Date Status amoxicillin Amoxicillin rash Drug Allergy Act nain sulfamethoxazole / trimethoprim Bactrim Unknown Drug Allergy Active codeine Codeine Unknown Drug Allergy Active REASON FOR VISIT At Risk Footcare, Painful Nail(s) aggrevated by shoes and causing difficulty standing/walking Medications Medication SIG (Take, Route, Frequency, Duration) Notes Start Date End Date Status Centrum MultiGummies Active Atorvastatin Calcium 20 MG 1 tablet Orally Once a day for 30 day(s) Active Aspirin 81 81 MG 1 tablet Orally Once a day for 30 day(s) Active Sertraline HCl Not-T aking Hydralazine-HCTZ Act nain Melatonin PRN Not-Taking Urea 40 % 1 application to affected area on feet Externally Twice a day for 30 days 11/26/2022 Not-Taking Extra Depth Orthopedic Shoes, (1) Pair With (3) Pair Custom Heat Molded Multidensity Innersoles Dx: NIDDM/PVD(E11.51), Hammertoe Foot Deformity(M20.41,M20 .42), Preulcerative Skin Lesion(s)(L85.1) Wear Daily for 365 days Active Vitamin D Active Sertraline HCl Zoloft Activ e NIFEdipine CR Osmotic Active Nitroglycerin 0.3 mg PRN Activ e Metoprolol Succinate 100 MG 1 capsule Orally Once a day for 30 day(s) Active Losartan Potassium 50 MG 1 tablet Orally Twice a day Active Omeprazole 40 MG 1 capsule 30 minutes before morning meal Orally twice a day Active Loratadine Active Levothyroxine Sodium 112mg 1 x aday Active Lantus SoloStar 40 units Acti ve Latanoprost Active HumaLOG KwikPen Acti ve Claritin allergy Active Chlorthalidone 25 MG 1 tablet in the morning with food Orally Once a day for 30 day(s) Active Farxiga 10 MG 1 tablet Orally Once a day Active Gabapentin 1 tablet Orally twice daily Active Social History Tobacco Use: Social History Observation Description Date Details (start date - stop date) Never Smoker NA - NA Tobacco Use/Smoking Question Answer Notes Are you a: nonsmoker Additional Findings: Tobacco Non-User Aggressive non-smoker Tobacco use other than smoking: Question Answer Notes Are you an other tobacco user? No Vital Signs Height 3uj76gb in 09/28/2024 Weight 173 lbs 09/28/2024 BMI 36.15 kg/m2 09/28/2024 Blood pressure systolic 134 mm Hg 09/28/19 25 Blood pressure diastolic 85 mm Hg 025 Procedures Procedure Date Ordered Date Performed Result Body Sit e 45296-LPAYHLS NAIL, 6 OR MORE 09/28/2024 N/A 04850-LOFV SKIN LESIONS, OVER 4 09/28/2024 N/A Encounters Encounter Location Date Provider Diagnosis [facility] [address] [place] [address] 09/28/2024 Quentin Hendrix Type 2 diabetes mellitus with diabetic peripheral angiopathy without gangrene E11.51 ; Tinea unguium B35.1 ; Pain in right toe(s) M79.674 and Pain in left toe(s) M79.675 Assessments Encounter Date Diagnosis (ICD Code) Assessment Notes Treatment Notes Treatment Clinical Notes Section Notes 09/28/2024 Type 2 diabetes mellitus with diabetic peripheral angiopathy without gangrene (ICD-10 - E11.51) 09/28/2024 Tinea unguium (ICD-10 - B35.1) 09/28/2024 Pain in right toe(s) (ICD-10 - M79.674) 09/28/2024 Pain in left toe(s) (ICD-10 - M79.675) Plan Of Treatment Pending Test Test Name Order Date 83557-FIGQALY NAIL, 6 OR MORE 09/28/2024 97733-EDEI SKIN LESIONS, OVER 4 09/28/19 25 Next Appt Details Follow Up: prn, Reason: Provider Name:Quentin Hendrix , 01/01/2025 09:00:00 AM, [address] [place] [address], [phone], Procedure Notes * Category Sub-Category Detail Notes Debride Nail 6-10 Nail debridement Due to the cl inical pathology outlined in the exam findings, performance of this nail treatment is medically necessary as its management by an unskilled/untrained nonprofessional would put this patients foot and overall health at risk. Therefore, debridement to affected nail(s), as described in exam ( T1, T2, T3, T4, T6, T7, T8, T9 ), was performed exclusively by the physician of record to reduce/remove overall nail length, girth, thickness, subungual debris, and necrotic tissue, by manual and/or electrical means through the use of a nail nipper and/or dremel-type die grinder, to a more viable healthy nail [...] to maintain effectiveness in symptomatic relief - 14910 Keratoma Treatment Parring or Cutting o f Benign Hyperkeratotic Lesion(s) (-57) More than 4 Lesions - Due to the at risk nature of the patients medical condition as documented in the exam findings, performance of this keratoderma treatment is medically necessary as its management by an unskilled/untrained nonprofessional would put this patients foot and overall health at risk. Therefore, the benign hyperkeratotic lesions, ( 10 ) in total, locations as stated and described in the exam ( SUB MTH (s), 1, B/L , SUB MTH (s), 2, B/L , SUB MTH (s), 3, B/L , SUB MTH (s), 5, B/L , Plantar, Heel(s), B/L ), were pared, and/or cut utilizing a sterile 15 blade, tissue nippers, and/or power dremel instrumentation by the physician of record - 90269, Q8 Progress Notes * Molly TEIXEIRA RDOB:[birth year] (73 yo F)Acc No.[id number]:09/28/2024 Progress Note Patient:?Molly TEIXEIRA R Provider:?Quentin Hendrix DPM :1950???Age:73 Y???Sex:Female D ate:09/28/2024 Address:[address] [place], [place] [id number] Pcp:Cinthya Montiel Subjective: * Chief Complaints: * ???At Risk FootcarePainful N ail(s) aggrevated by shoes and causing difficulty standing/walking * HPI: ???At Risk footcare:?Pt States Last PCP Visit:?Date?08/06/2024 * ROS:?General/Constitutional:?Nausea?denies.?Vomiting?denies.?Hunger Thirst?denies.?Patient complaining of?sleep disturbance.?Loss appetite?denies.?Chills?denies.?Fatigue?denies.?Fever?denies.?Night Sweats?denies.?Unexplained weight loss?denies.?Unexplained weight gain?admits.?HEENTM:?Dentures?admits.?Dizziness?admits.?Glasses/contacts?admits.?Retinopathy?den ies.?Blurred/double vision?denies.?TMJ?admits.?Discharge/drainage?denies.?Implants?denies.?Sore throat?admits.?Dental implants?denies.?Hard of hearing ?denies.?Difficulty chewing/swallowing/speaking?denies.?Nose bleeds?denies.?Sore mouth?denies.?Respiratory:?On O xygen?denies.?Pneumonia/pleurisy?denies.?Bronchitis?admits.?Emphysema?denies.?Co ughing?denies.?Cough blood?denies.?Shortness of breath?admits.?Wheezing?admits.?Cardiovascular:?Pacemaker?denies.?MVP?denies.?WPW?denies.?CHF?denies.?Heart attack?denies.?Septal defect?denies.?Rapid beat?denies.?Chest pain ?denies.?Atrial Fib.?denies.?Murmur/Palpitations?denies.?Gastrointestinal:?Hemorrhoids?admits.?Stomach/Abdominal pain?admits.?Dark blood stool?denies.?Irritable bowel ?denies.?Constipation?denies.?Diarrhea?denies.?Hematology:?Swelling?admits.?Clots?denies.?Varicose Veins?denies.?Bruising?admits, on aspirin.?Bleeding problem?admits, on anticoagulants.?Genitourinary:?Blood urine?denies.?Frequent/Painfu/urination/bladder control?denies.?Kidney stones?denies.?Infection (UTI)?denies.?Nephropathy?denies.?sex trans dis (STD)?denies.?Prostate?denies.?Musculoskeletal:?Hammertoes?admits.?Bunions?denies.?Back Pain?admits.?Muscle Cramps/ Resting?admits.?Muscle cramps / walking?admits.?Generalized aches and pains?admits.?Weakness?denies.?Integ.:?Davis?denies.?Scars?admits.?Corns/calluses?admits.?Ingrown nails?admits.?Painful nails?admits.?Open Sores?denies.?Rashes?denies.?Neurologic:?Difficulty sleeping?admits.?Brain disorder?denies.?Numbness?denies.?Balance t rouble?admits.?Confusion?denies.?Fainting/blackouts?admits.?Tingling?denies.?Roberto Carlos mors?denies.? * Medical History:? * Surgical History:?breast bio [...] Allergies:?Amoxicillin: rash BactrimCodeineyes[Allergies Verified] Objective: * Vitals:?Ht: 5kt39na, Wt:173, BMI:36.15, Shoe size: 5-6, BP:134/85mm Hg, BS: 102, Ht-cm: 147.32 cm, Wt-k.47 kg. * ???Past Orders: ???Lab:HEMOGLOBIN A1C (GLYCO HEMOGLOBIN) (Order Date - 08/08/2024) (Collection Date & Time - 08/08/2024 09:00 AM) ? Value Reference Range ?HEMOGLOBIN A1C % (HH) 7.3 * Examination: ???Ophthalmology Referral: ?DIABETES EYE EXAM?Procedure Performed:?Yes ?Date of Exam Performed?02/17/2024 ?Diabetic Retinopathy Screening:?Yes ?Retinal Screening Performed:?Yes ?Findings of Diabetic Eye Exam:?no retinopathy?Vascular: ?DP PULSES (B):?0/4, RIGHT , 1/4 , LEFT.?PT PULSES (B):? 0/4, B/L.?CAPILLARY FILL TIME:? delayed, all digits, B/L.?TROPHIC CONDITION-TEXTURE/ELASTICITY/TURGOR/HAIR GROWTH (B):? decreased,?with sparse to absent hair growth, B/L.?TEMPERTURE GRADIENT (C):? decreased, cool to cool, proximal to distal, B/L.?PIGMENTATION:? rubrous, B/L.?EDEMA (C):? 2/4, non-pitting, without aching pain, B/L, Leg(s), Ankle(s), Feet.?CLAUDICATION (C):?denies, B/L.?REST PAIN:?denies, B/L.?Nails: ?NAILS are:?Elongated, overgrown, dystrophic, lytic, greater than 3mm thick, discolored and friable with crumbly malodorous subungual debris, with pain on palpation, T1, T2, T3, T4, T6, T7, T8, T9, all other nails not described with characteristics as possessing mycosis are elongated, overgrown, and dystrophic.?Dermatologic: ?SKIN FINDINGS:?Skin exam reveals Keratotic lesion(s) located at, SUB MTH (s), 1, B/L , SUB MTH (s), 2, B/L , SUB MTH (s), 3, B/L , SUB MTH (s), 5, B/L , Plantar, Heel(s), B/L.? Assessment: * Assessment: 1.?Type 2 diabetes mellitus with diabetic peripheral angiopathy without gangrene - E11.51 (Primary)???2.?Tinea unguium - B35.1???3.?Pain in right toe(s) - M79.674???4.?Pain in left toe(s) - M79.675??? Plan: * Treatment: 2.?Tinea unguium?Procedure: 84484-JUYWULM NAIL, 6 OR MORE * Procedures:?Debride Nail 6-10:?Nail debridement?Due to the clinical pathology outlined in the exam findings, performance of this nail treatment is medically necessary as its management by an unskilled/untrained nonprofessional would put this patients foot and overall health at risk. Therefore, debridement to affected nail(s), as described in exam (?T1,?T2,?T3,?T4,?T6,?T7,?T8,?T9?), was performed exclusively by the physician of record to reduce/remove overall nail length, girth, thickness, subungual debris, and necrotic tissue, by manual and/or electrical means through the use of a nail nipper and/or dremel-type die grinder, to a more viable healthy nail plate or bed tissue 6- 10 nails in total. Silver nitrate was used for any petechial bleeding as necessary. Definitive antifungal treatment options, both pharmaceutical and surgical, have been reviewed and discussed with the patient. The patient solely prefers the use of intermittent/as needed professional debridement services for their nail condition and understands the need for additional periodic treatments to maintain effectiveness in symptomatic relief - 78450.?Keratoma Treatment:?Parring or Cutting of Benign Hyperkeratotic Lesion(s)?(-57) More than 4 Lesions - Due to the at risk nature of the patients medical condition as documented in the exam findings, performance of this keratoderma treatment is medically necessary as its management by an unskilled/untrained nonprofessional would put this patients foot and overall health at risk. Therefore, the benign hyperkeratotic lesions, ( 10 ) in total, locations as stated and described in the exam (?SUB MTH (s),?1,?B/L?,?SUB MTH (s),?2,?B/L?,?SUB MTH (s),?3,?B/L?,?SUB MTH (s),?5,?B/L?,?Plantar,?Heel(s),?B/L?), were pared, and/or cut utilizing a sterile 15 blade, tissue nippers, and/or power dremel instrumentation by the physician of record - 09099, Q8.? * Procedure Codes:?78512 DEBRI DE NAIL, 6 OR MORE, Modifiers: XS 77216 TRIM SKIN LESIONS, OVER 4, Modifiers: XS , Q8 * Follow Up:?prn * Images: * Sign off status: Completed true * Provider:?Quentin Hendrix DPM Date:?2024 Generated for Alma thompson/Ju/Amara on:?11/20/2024 12:23 PM EDT History and Physical Notes * HPI (History of Present Illness) Category Sub-Category Detail Notes Category Not es At Risk footcare Pt States Last PCP Visit: Date: 4 Examination Category Sub-Category Detail Notes Category Not es Dermatologic SKIN FINDINGS: Skin exam reveal s Keratotic lesion(s) located at, SUB MTH (s), 1, B/L , SUB MTH (s), 2, B/L , SUB MTH (s), 3, B/L , SUB MTH (s), 5, B/L , Plantar, Heel(s), B/L Ophthalmology Referral DIABETES EYE EXAM Procedu re Performed:: Yes ?Date of Exam Performed: 02/17/2024 Diabetic Retinopathy Screening:: Yes Retinal Screening Performed:: Yes Findings of Diabetic Eye Exam:: no retin opathy Vascular DP PULSES (B): 0/4, RIGHT , [...] T1, T2, T3, T4, T6, T7, T8, T9, all other nails not described with characteristics as possessing mycosis are elongated, overgrown, and dystrophic
--- OUTSIDE RECORDS SUMMARY | 2024-11-20 12:24 | XMS_ITS | Data Portability ---
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 She also describes significant insomnia getting only 2 to 3 hours of sleep per night with symptomatic daytime headache. On examination today her BMI was 36 which puts her outside of the range for inspire consideration. A fiberoptic laryngoscopy was otherwise benign with no obstructive masses. Her sleep study was not available for my review and we will request it. We may review results of the sleep study and my interpretation when it becomes available in approximately 3 weeks with a telehealth. [email or web address] Not available 07/06/2024 11:10:58 07/25/2024 07/25/2024 Patient is not a candidate for INSPIRE given her BMI at this time. She describes difficulty succeeding with CPAP with breakthrough pauses in breathing. It is possible that modification of setting may ultimately achieve better response when working with sleep center over time. Discussed the main barrier for her sleep pattern is the insomnia. Encouraged her to continue to work with PCP or SMS for management options. [email or web address] Not available 07/25/2024 11:56:47 Plan of Treatment Reminders Order Date Submit Date Provider Last Modified By Organization Details Last Modified Time Details Appointments None record ed. Lab None record ed. Referral None record ed. Procedures None record ed. Surgeries None record ed. Imaging None record ed. Medication Orders None record ed. Patient TargetsNo targets recorded. Patient InstructionsNo instructions recorded. Reason for Referral None Reported. Results Created Date Observation Date Name Description Value Unit Range Abnormal Flag Note LastModifiedBy Organization Detail LastModifiedTime 07/16/20 24 10/01/2023 sleep study , diagn ostic (PROC ) No observ ation record ed. [facility] [address] [place], [address], 07/16/2024 10:25:08 Result Notes None recorded. Problems Name Problem SNOMED Code Status Onset Date Resolution Date Notes Provider Name and Address Organization Details Recorded Time Obstructive sleep apnea syndrome 01572823 Active 2023 HAYDEE ANDREWS MD [address], [address], [place] - [facility] 19:51:24 Chronic insomnia 848046443 Active 2023 HAYDEE ANDREWS MD [address] [place] [address], [phone], [place] - [facility] 11:51:07 Problem Notes None recorded. Procedures Surgical History Date Name Laterality Status Provider Name and Address Organization Details Recorded Time 07/25/2024 Telehealth completed HAYDEE ANDREWS MD [address] [place] [address], [phone], [place] - [facility] 07/24/2024 13:35:50 07/06/2024 FOL_DP completed HAYDEE ANDREWS MD [address] [place] [address], [phone], [place] - [facility] 07/03/2024 19:51:17 Imaging Results Imaging Date Name Status LastModified by Organiz ation Details LastModified Time 10/01/2023 sleep study, diagnostic (PROC) completed [facility] [address] [place], [address], 07/16/2024 10:25:08 Procedure Notes None recorded. Medical Equipment None Reported. Allergies No known drug allergies Medications Name Sig Start Date Stop Date Status Note LastModified by Organization Details LastModified Time atorvastatin 20 mg tablet Take 1 tablet every day by oral route. active Not Available Not Available No t Available nifedipine ER 90 mg tablet,extended release Take 1 tablet every day by oral route. active Not Available Not Available No t Available sertraline 100 mg tablet Take 1 tablet every day by oral route. active Not Available Not Available No t Available chlorthalidone 25 mg tablet Take 1 tablet every day by oral route. active Not Available Not Available No t Available omeprazole 40 mg capsule,delayed release Take 1 capsule every day by oral route. active Not Available Not Available No t Available gabapentin 300 mg capsule Take 1 capsule 3 times a day by oral route. active Not Available Not Available No t Available hydralazine 50 mg tablet Take 1 tablet twice a day by oral route. active Not Available Not Available No t Available losartan 100 mg tablet Take 1 tablet every day by oral route. active Not Available Not Available No t Available levothyroxine 112 mcg capsule Take 1 capsule every day by oral route. active Not Available Not Available No t Available Farxiga 10 mg tablet Take 1 tablet every day by oral route. active Not Available Not Available No t Available metoprolol succinate ER 100 mg capsule sprinkle, ext. release 24 hr Take 1 capsule every day by oral route. active Not Available Not Available No t Available aspirin 81 mg capsule Take 1 capsule every day by oral route. active Not Available Not Available No t Available Vitals Date Recorded Body height Body mass index (BMI) Body weight Provider Name and Address Organization Details Last Updated DateTime 07/06/2024 147.32 cm 36.2 kg/m2 06780.48 g Shanel Pineda [place] - [facility] 07/06/2024 10:55:16 Social History None recorded. Functional Status None recorded. Mental Status None recorded. Family History Nothing Reported. Medical History Condition Response Anemia Y Anxiety Y Hypertension Y Depression Y Gynecological HistoryNo gynecological history recorded. Obstetrics History GPAL:G 0 P 0 0 0 0 Past Encounters Encounter ID Performer Location Encounter Start Date Encounter Closed Date Diagnosis/Indication Diagnosis SNOMED-CT Code Diagnosis ICD10 Code Diagnosis Note [id number] HAYDEE ANDREWS MD [facility] [address] [address] 07/06/2024 10:14:15 07/06/2024 11:01:20 Obstructive sleep apnea syndrome 81238809 G47.33 Body mass index 30+ - obesity 917117744 Z68.36 [id number] HAYDEE ANDREWS MD [facility] [address] [place] [id number] 07/25/2024 11:43:27 07/25/2024 12:50:40 Obstructive sleep apnea syndrome 91051093 G47.33 Chronic insomnia 5400987 04 F51.04 Health Concerns Section Related Observation LastModified by Organization Detai ls LastModified Time None Recorded Concern Status LastModified by Organization Details LastModified Time None Recorded Advance Directives Directive None Recorded Payers Encounter Date Sequence Insurance Name Policy Number Policy Silveira Covered Member ID Silveira Member ID Guarantor Name 07/06/2024 1 [facility] - MEDICARE PREFERRED (MEDICARE REPLACEMENT PPO) JAIDEN Teixeira [id number] Molly Teixeira 07/25/2024 1 [facility] - MEDICARE PREFERRED (MEDICARE REPLACEMENT PPO) JAIDEN Teixeira [id number] Molly Teixeira Notes Date Note Type Note Provider Name and Address Organization Details Recorded Time 07/06/2024 text/html LOKI?[facility] - [facility]AP BMI 36 (today)+insomnia may not fall asleep until 4-5am getting only 3 hours of restdaytime headaches HAYDEE ANDREWS MD [address], [address], [facility] - [facility] 07/06/2024 11:11:55 07/25/2024 text/html LOKI, insomnia 10/01/23 PSG SMSBMI 37AHI 33[facility] and mixed events - eventsCPAP - was told she stopped breathing even with CPAP +insomnia may not fall asleep until 4-5am getting only 3 hours of restdaytime [facility]BR[facility] been [facility] to [facility] sleep aids beyond melatonin, zoloft HAYDEE ANDREWS MD 100 [facility],[address], [address], [facility] - [facility] 07/25/2024 11:57:08 OBGyn Episode No OBEpisode recorded.
== END 2024-11-20 10:21 | disposition home or self-care (01) ==
LOC: HO.NEURO 10:20
PROVIDERS: PCP Internal Medicine; Visit Provider Internal Medicine
DX: G56.13 Other lesions of median nerve, bilateral upper limbs (principal)
CPT/HCPCS: 95860; 95886; 95911

== ENCOUNTER 2025-08-05 19:41 | Emergency (ER) | payer MEDICARE, SELFPAY ==
[2025-08-05] VITALS (7 sets, daily range): BP systolic 116–145; BP diastolic 42–84; PULSE 66–77; RESP 17–19; TEMP 36.5–36.9; O2SAT 97–98; BMI 35.7
--- NOTE | 2025-08-05 19:51 | ECG_ITS ---
Test Reason : DIZZINESS Blood Pressure : */* mmHG Vent. Rate : 69 BPM Atrial Rate : 69 BPM P-R Int : 154 ms QRS Dur : 74 ms QT Int : 408 ms P-R-T Axes : 67 17 37 degrees QTcB Int : 437 ms Normal sinus rhythm Normal ECG When compared with ECG of 14-Nov-2017 05:35, No significant change was found Referred By: Mirna Mckeon Electronically Signed By: CAROLINA VANEGAS
[2025-08-05 20:03] LABS: MANUAL DIFF FLAG NO
[2025-08-05 20:07] LABS: Hematocrit 29.6 % (37.0-47.0); Hemoglobin 8.9 g/dl (12.0-16.0); Imm Gran Abs Auto 0.03 X10*3/uL (0.00-0.03); Imm Gran Pct Auto 0.4 % (0.0-0.4); Lymphocytes Absolute Auto 1.5 X10*3/uL (1.2-4.9); Mean Corpuscular HGB Conc 30.1 g/dl (31.0-35.0); Mean Corpuscular Hemoglobin 22.2 pg (27.0-33.0); Mean Corpuscular Volume 73.8 fL (80.0-98.0); NRBC Abs Auto 0.000 X10*3/uL (0.0-0.012); NRBC Pct Auto 0.0 /100WBC (0.0-0.2); Platelet Count 246 X10*3/uL (160-400); Red Blood Count 4.01 X10*6/uL (4.20-5.50); White Blood Count 8.5 X10*3/uL (4.8-10.8)
--- NOTE | 2025-08-05 20:08 | PC.NURSE ---
pt BIBA from home, pt chaged over into hosptal gown, EKG, blood work, POC, and nasal swab obtained, all samples sent to lab, pt appears to be in no apparent distress at this time, provided call light for safety
[2025-08-05 20:12] LABS: Glucose, Whole Blood 143 mg/dL (60-115)
[2025-08-05 20:22] LABS: Alanine Aminotransferase 17 U/L (0-31); Albumin Level 4.3 g/dL (3.5-5.0); Alkaline Phosphatase 71 U/L (39-117); Anion Gap 13 (12-20); Aspartate Amino Transferase 18 U/L (5-31); Blood Urea Nitrogen 29 mg/dL (9-16); Calcium 9.4 mg/dL (8.4-10.2); Carbon Dioxide 24 mmol/L (22-29); Chloride 108 mmol/L (96-108); Creatinine Clr Calc Pharmacy 27.1; Estimated Glomerular Filt Rate 32; Magnesium 1.9 mg/dL (1.6-2.6); Potassium 4.2 mmol/L (3.3-5.1); Sodium 141 mmol/L (135-145); Total Protein 6.8 g/dL (6.5-8.0)
[2025-08-05 20:36] LABS: NT Pro B Type Natriuretic Pept 255.6 pg/mL (<300); Troponin-I High Sensitivity < 2.7 ng/L (<3.5-17.0)
[2025-08-05 21:02] LABS: Resp Syncy Virus RNA Qual PCR NEGATIVE (Negative); SARS COV2 PCR INHOUSE NEGATIVE (Negative)
--- NOTE | 2025-08-05 21:06 | PC.NURSE ---
pt assisted to the bedpan w/ very minimal assistance needed, urine sample obtained and sent to lab w/ stool sample
[2025-08-05 21:10] LABS: OBS Int Ctl Valid YES; OBS1 NEGATIVE (NEGATIVE)
[2025-08-05 21:11] LABS: Appearance Urine Clear; Glucose Urine UA >=1000 mg/dL (Negative); PH 6.0 (5.0-9.0); Specific Gravity - Urine 1.015 (1.005-1.025); UMIC TRIGGER UACC YES
--- OUTSIDE RECORDS SUMMARY | 2025-08-05 21:41 | XMS_ITS | Encounter Summary ---
Author Organization [facility] Address [address] [place] [phone] Phone Care Team Providers Care Patch Washer Name Role Phone Cinthya Montiel MD Primary Care Provider Encounter Details Date Type Department Care Team (Late st Contact Info) Description 04/30/2018 Procedure Pass [facility], Ct Scan - [address] [address] Social History Tobacco Use Types Packs/Day Years Used Date Smoking Tobacco: Never Smokeless Tobacco: Never Alcohol Use Standard Drinks/Week Comments No 0 (1 standard drink = 0.6 oz pur e alcohol) Comments Unknown Sex and Gender Information Value Date Recorded Sex Assigned at Not on file Legal Sex Female 10:02 PM EDT Gender Identity Not on file Sexual Orientation Not on file documented as of this encounter Plan of Treatment Not on file documented as of this encounter Visit Diagnoses Not on filedocumented in this encounter Care Teams Patch Washer Relationship Specialty Start Date End Date Cinthya Montiel MD [address] [place] [address] [place] [address] PCP - General Internal Medicine 04/30/18 documented as of this encounter Additional Source Comments The information contained in this document represents components of the legal health record. It is not the complete legal health record.[facility]
--- OUTSIDE RECORDS SUMMARY | 2025-08-05 21:41 | XMS_ITS | Continuity of Care Document ---
Author Organization [place] - [facility], [facility] Address [address] [place] [address] Care Team Providers Care Hematology Specialist Name Role Phone JAYLIN ROSS Primary Care Provider Assessment Encounter Date Assessment Date Assessment LastModified by Organization Details LastModified Time 06/20/2025 06/20/2025 Assessment: - Tympanosclerosis , bilateral. - TMJ discomfort. - Age-related hearing loss. Plan: Tympanosclerosis and hearing loss: I discuss the patient's hearing levels, noting borderline normal hearing at lower frequencies with severe loss at higher frequencies. I recommend TV ears as a convenient amplification option for television viewing, available at electronic stores such as [employer]. Hearing aids are not deemed necessary at this time based on her current needs. TMJ discomfort: I advise management with soft foods, warm compresses, gentle massage, and occasional use of anti-inflammator y medications such as Motrin for symptom relief. I explain that there is no cure for TMJ but emphasize the importance of respecting her body's signals, such as changing sleeping positions when discomfort arises. I also mention that working with a dentist could provide additional options, such as a bite guard, but note that this is not applicable due to her use of dentures. Ear discomfort at night: I attribute the sensation of heat and pain in the ear to blood flow changes and reassure her that no specific medication is required. I recommend listening to her body's signals and adjusting her sleeping position as needed. [email or web address] Not available 06/20/2025 15:51:49 Plan of Treatment Reminders Order Date Submit Date Provider Last Modified By Organization Details Last Modified Time Details Appointments None record ed. Lab None record ed. Referral None record ed. Procedures None record ed. Surgeries None record ed. Imaging None record ed. Medication Orders None record ed. Patient TargetsNo targets recorded. Patient Instructions Encounter Date Encounter Id Patient Instructions Last Modified By Organization Details Last Modified Time 06/20/2025 [id number] - Consider purchasing TV ears for amplification during television viewing. - Manage TMJ discomfort with soft foods, warm compresses, gentle massage, and occasional use of anti-inflammatory medications like Motrin. - Adjust sleeping position as needed to alleviate ear discomfort. [email or web address] Not available 06/20/2025 15:51:49 Please note: Par ts of this encounter note have been generated by AI based on audio conversation. Patient consent was required prior to utilizing this technology. Content review was required prior to finalizing the note. [email or web address] Not available 06/20/2025 15:51:49 Reason for Referral None Reported. Results Created Date Observation Date Name Description Value Unit Range Abnormal Flag Note LastModifiedBy Organization Detail LastModifiedTime 06/20/20 25 audio gram No observ ation record ed. BARCODE Not Available 2024 16:09:45 Result Notes None recorded. Problems Name Problem SNOMED Code Status Onset Date Resolution Date Notes Provider Name and Address Organization Details Recorded Time Obstructive sleep apnea syndrome 93703905 Active 2023 HAYDEE ANDREWS MD [address] [place] [address], [place], [address], [facility] - [facility] 4 19:51:24 Chronic insomnia 662851377 Active 2023 HAYDEE ANDREWS MD [address] [place] [address], [place], [address], [facility] - [facility] 4 11:51:07 Sensorineur al hearing loss of bilateral ears 258785624 Active 2024 ALAN LO [address] [place] [address], [place], [address], [facility] - [facility] 5 15:00:33 Bilateral tinnitus 6922662243241 Active 2024 ALAN LO [address] [address], [place], [address], [facility] - [facility] 5 15:00:35 Temporomand ibular joint disorder 48543044 Active 2024 HAYDEE ANDREWS MD [address] [facility],[address], [address], [place] - [facility] 15:49:36 Problem Notes None recorded. Procedures Surgical History Date Name Laterality Status Provider Name and Address Organization Details Recorded Time 5 Comp Audio with Tymps - 76854 & 29207 completed ALAN LO [address] [facility],[address], [address], [facility] - [facility] 06/20/2025 15:00:25 4 Telehealth completed HAYDEE ANDREWS MD [address] [place] [address],[address], [address], [facility] - [facility] 07/24/2024 13:35:50 4 FOL_DP completed HAYDEE ANDREWS MD [address] [place] [address],[address], [address], [facility] - [facility] 07/03/2024 19:51:17 Imaging Results None recorded. Procedure Notes None recorded. Medical Equipment None [...] and Address Organization Details Last Updated DateTime 06/20/2025 147.32 cm 34.5 kg/m2 39347.74 g [facility] 06/20/2025 15:27:09 Social History None recorded. Functional Status None recorded. Mental Status None recorded. Family History Nothing Reported. Medical History Condition Response Anxiety Y Depression Y Anemia Y Hypertension Y Gynecological HistoryNo gynecological history recorded. Obstetrics History GPAL:G 0 P 0 0 0 0 Past Encounters Encounter ID Performer Location Encounter Start Date Encounter Closed Date Diagnosis/Indication Diagnosis SNOMED-CT Code Diagnosis ICD10 Code Diagnosis IMO Codes Diagnosis Note [id number] HAYDEE ANDREWS MD [facility] of [address] [address] 06/20/2025 14:06:07 06/20/2025 15:52:27 Sensorineural hearing loss of bilateral ears 279264928 H90.3 [id number] Right Ear:Border line normal hearing through 3K Hz sloping to a severe SNHL with excellent speech discrimina tion.Type B tympanogra m.Left Ear:Border line normal hearing through 3K Hz sloping to a severe SNHL with excellent speech discrimina tion.Type B tympanogra m. Bilateral tinnitus 11165 49701 102 H93.13 774240 Temporoman dibular joint disorder 91359417 M26.609 [id number] Health Concerns Section Related Observation LastModified by Organization Detai ls LastModified Time None Recorded Concern Status LastModified by Organization Details LastModified Time None Recorded Payers Encounter Date Sequence Insurance Name Policy Number Policy Silveira Covered Member ID Silveira Member ID Guarantor Name 06/20/2025 1 [facility] - MEDICARE PREFERRED (MEDICARE REPLACEMENT HMO) JAIDEN Teixeira [id number] Molly Teixeira 06/20/2025 2 [place] [facility] Molly Teixeira [id number] Molly Teixeira Notes Date Note Type Note Provider Name and Address Organization Details Recorded Time 06/20/2025 text/html hearing loss PV 07/25/24 Annette (TH) not candidate for inspire given BMI and insomnia Molly Teixeira is a 74-year-old female who presents for right-sided ear discomfort and hearing changes. She reports experiencing persistent earaches in the right ear, accompanied by unusual sounds described as fuzzy or resembling a washing machine agitator. She has a history of recurrent ear infections throughout her life but denies any history of ear surgeries. She mentions difficulty hearing the television, requiring her to increase the volume significantly depending on her seating position. She also notes challenges understanding soft-spoken dialogue and accents, particularly while watching Nigerien shows, often resorting to subtitles. Additionally, she describes discomfort in her jaw and ear region, which she associates with TMJ, as previously diagnosed by another provider. She experiences pain and a sensation of heat in her ear when lying down, necessitating a change in sleeping position. She denies exposure to loud noises, head injuries, or concussions. She has dentures and does not visit a dentist regularly. HAYDEE ANDREWS MD [address] [place] [address], [place], [address], [facility] - [facility] 06/20/2025 15:52:15 OBGyn Episode No OBEpisode recorded."
--- OUTSIDE RECORDS SUMMARY | 2025-08-05 21:41 | XMS_ITS | Encounter Summary ---
Author Organization [facility] Address [address] [place] [address] Phone Care Team Providers Care Energy Audit Advisor Name Role Phone Cinthya Montiel MD Primary Care Provider Encounter Details Date Type Department Care Team (Late st Contact Info) Description 04/30/2018 Procedure Pass [facility], Ct Scan - [address] [address] Social History Tobacco Use Types Packs/Day Years [...] on filedocumented in this encounter Care Teams Energy Audit Advisor Relationship Specialty Start Date End Date Cinthya Montiel MD [address] [place] [address] [place] [address] PCP - General Internal Medicine 04/30/18 documented as of this encounter Additional Source Comments The information contained in this document represents components of the legal health record. It is not the complete legal health record.[facility]
--- OUTSIDE RECORDS SUMMARY | 2025-08-05 21:41 | XMS_ITS | Encounter Summary ---
Author Organization [facility] Address [address] [place] [address] Encounters * CPT with Jose Anthony at [facility] on 2025-02-14 { reasonForRequest : Pt gets bloaded under breast down to belly button, headache andalso has pain in back. pt is not urinating or deficating like she should. Pt is also getting frequent dizzy spells , patientReports : , denies :[ Sharp focal or diffuse abdominal pain , Vomiting blood/coffee ground material , Bloating, jaundice new onset with pain , Nausea and vomiting greater than 2 hours with abdominal pain", Tearing pain that radiates to back , Food Impaction ], chiefComplaints : Abdominal Pain, Dizziness , pmh : Chronic Kidney Disease, Hyperlipidemia, Hypertension, Hypothyroidism, Diabetes Mellitus Type 2, Anemia, Tonsillectomy , a llergies : Penicillins, Codeine, Sulfa (Sulfonamide Antibiotics) , otherAllergie s :null, painAssessment : , visitOutcome : , additionalComments : 74 y.o female complains of Abdominal Pain, Dizziness\n\nPatient callingin to place a referral.\nPatient endorses abdominal pain and bloating for 2-3 weeks.\nPatient reports around this time of day her abdomen becomes hyperdistended from under her breast to her belly button. \nShe endorses abdominal pain, and severe cramping, symptoms worsen with food intake.\nShe alsoreports lower back pain.\nHer LBM was today, but, \ it was small pieces\ , she reports the her bowels and urination have not been normal for some time.\nShe states she has always had some dizziness, but it is now worse on a daily basis, she does not check her vital signs.\n[place] is followed her PCP, die storage clerk(appt 02/25) and her GI doc (appt 03/27).\nPatient has had an upper and lower scope showed a hernia and duodenal ulcer. She has also done the capsule camera swallow which she is unsure of the results, but thinks they saw a mass.\nShe would like to be evaluated.\n\nI provided information on the mobile health provider response time and advised the patient and/or caregiver to monitor reported signs and symptoms. I discussed the warning signs of when to seek emergency care."} Sent to a call for a pt complaining of dizziness. [facility] arrives on scene, pt is alert and oriented, airway is patent. Pt complains of headache, dizziness, intermittent sob, nausea, and epigastric pain x 3 months. Pt states dizziness has been worsening and she feels like she's going to pass out multiple times daily. Pt denies cp, vomiting, diarrhea, general weakness, black/bloody stool, dysuria, hematuria, fever, or loc. Pt allergies verified: PCN, Sulfa, and Codeine; (sitting) BP:107/71, P:80, RR:18, SpO2:97% RA, T:98.0; (standing) BP:93/64, P:79; Head: unremarkable; Lung sounds: clear bilaterally; Abdomen: soft, tenderness (pt states tenderness is baseline for her); Back: unremarkable; Extremities: unremarkable; Skin: pink, warm, dry; IV access/venous blood draw performed; Istat: Chem8+ results uploaded to [facility]; [facility] consulted and orders 12 lead ECG; 12 lead ECG: uploaded to [facility]. Pt is advised she should be transported to ED for further eval/treatment. Pt agrees to transport to [facility] ED. 911 called; Pt care transferred to [facility]. IV_(FLUIDS_AND/OR_MEDICATION), MEDICATION_IM, POC_BLOODWORK, ORTHOSTATIC_VITAL_SIGNS, PO_MEDICATION Written by Jose Anthony on 2025-02-14
--- OUTSIDE RECORDS SUMMARY | 2025-08-05 21:41 | XMS_ITS | Clinical Summary ---
Author Organization [facility] Address [address] [place] [address] Phone Care Team Providers Care Insemination Worker Name Role Phone Cinthya Montiel MD Primary Care Provider Allergies Active Allergy Reactions Criticality Noted Date Comments Codeine 04/30/2018 Penicillins 04/30/2018 Sulfa (Sulfonamide Antibiotics) 04/09 Medications No known medications Social History Tobacco Use Types Packs/Day Years Used Date Smoking Tobacco: Never Smokeless Tobacco: Never Alcohol Use Standard Drinks/Week Comments No 0 (1 standard drink = 0.6 oz pur e alcohol) Education Answer Date Recorded Are you interested in more education? Not on roseanne e 12/03/2022 Are you concerned about learning? Not on file 12/03/2022 No 12/03/2022 No 12/03/2022 Digital Access Answer Date Recorded No 01/01/2023 No 01/01/2023 No 01/01/2023 Reliable internet access at home? Not on file 01/01/2023 Device with a working camera? Not on file Comments Unknown Sex and Gender Information Value Date Recorded Sex Assigned at Not on file Legal Sex Female 10:02 PM EDT Gender Identity Not on file Sexual Orientation Not on file Last Filed Vital Signs Vital Sign Reading Time Taken Comments Blood Pressure 154/74 04/30/2018 7:45 PM EDT Pulse 77 04/30/2018 7:20 PM EDT Temperature 36.3 C (97.4 F) 04/30/2018 2:15 PM EDT Respiratory Rate 18 04/30/2018 7:20 PM EDT Oxygen Saturation 94% 04/30/2018 7:30 PM EDT Inhaled Oxygen Concentration - - Weight 78.5 kg (173 lb) 04/30/2018 2:15 PM EDT Height 177.8 cm (5' 10 ) 04/30/2018 2:15 PM EDT Body Mass Index 24.82 04/30/2018 2:15 PM EDT Plan of Treatment Health Maintenance Due Date Last Done Comments LIPID PANEL 1950 DEPRESSION SCREENING 1961 HEPATITIS C SCREENING 12/09/1967 SMOKING STATUS SCREENING (Once After 26 Yrs) 12/09/1975 COLOGUARD 1994 COLONOSCOPY 1994 COLORECTAL CANCER SCREENING 1994 FIT TEST 1994 FOBT 1994 SIGMOIDOSCOPY 1994 VIRTUAL COLONOSCOPY 1994 OSTEOPOROSIS SCREENING INITIAL (ONE-TIME) 2014 ZOSTER VACCINES (2 of 2) 04/06/2018 02/09/2018 RSV VACCINE (1 - 1-dose 75+ series) 2024 INFLUENZA VACCINE (#1) 2025 , 05/08/2020, 06/02/2019, Additional history exists COVID-19 VACCINE (2024- season) 2025 01/19/2021, 11/19/2020, 10/21/2020 Adult Td,Tdap Booster 02/10/2028 02/09/2018 PNEUMOCOCCAL VACCINES (50+ years) Completed 06/11/2019, 12/14/2016 HEPATITIS A VACCINES Aged Out No long er eligible based on patient's age to complete this topic HIB VACCINES Aged Out No longer eligi ble based on patient's age to complete this topic MENINGOCOCCAL VACCINES (ACWY) Aged Out No longer eligible based on patient's age to complete this topic MENINGOCOCCAL VACCINES (B) Aged Out N o longer eligible based on patient's age to complete this topic Medical Devices Not on file Insurance [employer] REPLAC[employer]PL[employer] REPLAC[employer] REPLAC[employer] REPLAC[employer] REPLACEMENT Care Teams Insemination Worker Relationship Specialty Start Date End Date Cinthya Montiel MD [address] [place] [address] [place] [address] PCP - General Internal Medicine 04/30/18 Additional Source Comments The information contained in this document represents components of the legal health record. It is not the complete legal health record.[facility]
--- OUTSIDE RECORDS SUMMARY | 2025-08-05 21:41 | XMS_ITS | Encounter Summary ---
Author Organization [facility] Address [address] [facility] [address] [place] [address] Phone Care Team Providers Care Dental Practitioner Name Role Phone Cinthya Montiel MD Primary Care Provider [phone] Encounter Details Date Type Department Care Team (Late Contact Info) Description 10/07/2021 Documentation Only [facility] [address] [facility] [address] [place] [phone] Hussain Flores MD [facility] [address] [address] Social History Tobacco Use Types [...] Department Care Team (Late Contact Info) Description 11/11/2025 1:30 PM EDT Office Visit [facility] [address] [place] [address] Hussain Flores MD [facility] [address] [address] documented as of this encounter Visit Diagnoses Not on filedocumented in this encounter Care Teams Dental Practitioner Relationship Specialty Start Date End Date Cinthya Montiel MD [address] [place] [address] [place] [address] PCP - General 08/18/20 documented as of this encounter
--- OUTSIDE RECORDS SUMMARY | 2025-08-05 21:41 | XMS_ITS | Encounter Summary ---
Author Organization [facility] Address [address] [place] [address] Phone Care Team Providers Care Atmospheric Physicist Name Role Phone Cinthya Montiel MD Primary Care Provider Encounter Details Date Type Department Care Team (Late st Contact Info) Description 04/30/2018 Procedure Pass [facility], Ct Scan - [address] [address] Social History Tobacco Use Types Packs/Day Years [...] on filedocumented in this encounter Care Teams Atmospheric Physicist Relationship Specialty Start Date End Date Cinthya Montiel MD [address] [place] [address] [place] [address] PCP - General Internal Medicine 04/30/18 documented as of this encounter Additional Source Comments The information contained in this document represents components of the legal health record. It is not the complete legal health record.[facility]
--- OUTSIDE RECORDS SUMMARY | 2025-08-05 21:41 | XMS_ITS | Clinical Summary ---
Author Organization [facility] Address [address] [place] [address] Care Team Providers Care Distillery Worker General Name Role Phone Cinthya Montiel MD Primary Care Provider [phone] Allergies Active Allergy Reactions Criticality Noted Date [...] ONCE DAILY INSTRUCTED. 180 tablet 2 Active Additional Information Patient taking differently: 100 mg, Reported on 02/25/2025 Farxiga 5 MG tablet TAKE TWO TABLETS BY MOUTH EVERY DAY 180 tablet 2 3 Active Additional Information Patient taking differently: 10 mg, Reported on 02/25/2025 hydrALAZINE 50 MG tablet 3 Active sertraline (ZOLOFT) 100 MG tablet Take 100 mg by mouth 1 (one) time each day Active busPIRone (BUSPAR) 10 MG tablet Take 10 mg by mouth in the morning and 10 mg in the evening and 10 mg before bedtime. Active Active Problems Problem Noted Date Diagnosed Date Stage 3b chronic kidney disease 02/25/2025 Chest pain 12/15/2021 Overview (04/19/2022): Last Assessment & Plan: Patient's chest pain symptoms are vague and atypical in nature. She is able to exercise, climbs stairs and mow her lawn without developing any significant chest pain or dyspnea. She recently underwent a stress echocardiogram which was negative for ischemia. Congestive heart failure 12/14/2021 Overview (04/19/2022): admitted to [facility] 12/2016 for CHF and NELLIE Type 2 diabetes mellitus with peripheral angiopa thy 10/07/2021 Constipation 10/07/2021 Hammer toe 10/07/2021 Renal osteodystrophy 10/07/2021 Stage 3b chronic kidney disease 08/17/2021 Renal osteodystrophy 02/23/2021 Acute nontraumatic kidney injury 02/16/2021 Anemia of chronic renal failure 02/16/2021 Hyperkalemia 02/16/2021 Type 2 diabetes mellitus wit h diabetic chronic kidney disease 02/16/2021 Pulmonary embolism 07/27/2018 Chronic kidney disease [...] Pressure 126/64 05/03/2024 1:02 PM EDT Pulse 77 02/25/2025 1:45 PM EDT Temperature - - Respiratory Rate - - Oxygen Saturation 98% 02/25/2025 1:45 PM EDT Inhaled Oxygen Concentration - - Weight 76 kg (167 lb 9.6 oz) 02/25/2025 1:45 PM EDT Height 147.3 cm (4' 10 ) 09/01/2020 12:00 PM EST Body Mass Index 35.03 09/01/2020 12:00 PM EST Plan of Treatment Upcoming Encounters Date Type Department Care Team (Late st Contact Info) Description 11/11/2025 1:30 PM EDT Office Visit [facility] [address] [place] [address] Hussain Flores MD [address] [facility] [address] [place] [phone] Health Maintenance Due Date Last Done Comments Breast Cancer Screening 1950 Colorectal Cancer Screening: Annual FOBT 1998 Colorectal Cancer Screening: Colonoscopy 1998 Colorectal Cancer Screening: Sigmoidoscopy 1998 Diabetes: Ophthalmology Exam 09/05/2020 Diabetes: Pedal Pulse Checked 09/05/2020 Diabetes: Sensory Foot Exam 09/05/2020 Diabetes: Visual Foot Exam 09/05/2020 Diabetes: Hemoglobin A1C 03/04/202512/03/2 025, 12/03/2024, 10/16/2024, Additional history exists Influenza Vaccine (#1) 2025 4, 04/08/2023, 04/08/2022, Additional history exists Pneumococcal Vaccine: 50+ Years Completed 06/11/2019, 12/14/2016 Pneumococcal Vaccine: Peds (0 to 5 Years) and At-Risk Patients (6 to 49 Years) Discontinued 06/11/2019, 12/14/2016 Hepatitis B Vaccine Aged Out No longe [...] % PVNMA 08/30/2019 us Rtama Conversion LAB [id number] LICITED RESULTS Final Result PVNMA from Last 3 Months or Most Recently Relevant to Health Maintenance Insurance [employer] [place] Medicaid [place] Care Teams Distillery Worker General Relationship Specialty Start Date End Date Cinthya Montiel MD [address] [place] [address] PCP - General 08/18/20
--- OUTSIDE RECORDS SUMMARY | 2025-08-05 21:42 | XMS_ITS | Clinical Summary ---
Author Organization [facility] [address] [facility] Address [address] [place] [address] Phone Care Team Providers Care Systems Trainer Name Role Phone Cinthya Ross MD Primary Care Provider [phone] Allergies Active Allergy Reactions Criticality Noted Date Comments Codeine Nausea And Vomiting 04/26/2016 Penicillin G Hives 04/26/2016 Sulfa (Sulfonamide Antibiotics) Hives 04/08 Medications aspirin 81 mg EC tablet Take 81 mg by mouth daily. Active atorvastatin (LIPITOR) 20 mg tablet Take 20 mg by mouth daily. Active gabapentin (NEURONTIN) 300 mg capsule Take 1 capsule (300 mg total) by mouth 2 (two) times a day. Active OneTouch Ultra Test test strip 12/12/2018 Act nain insulin glargine (LANTUS) 100 unit/mL injection 30 Units at bedtime. Active insulin lispro (HumaLOG KwikPen [...] Take 90 mg by mouth daily. Active omeprazole (PriLOSEC) [address] capsule Take 40 mg by mouth 2 times daily. Active sertraline (ZOLOFT) 100 mg tablet Take 1 Tablet by mouth daily. Active OneTouch UltraSoft Lancets 12/12/2018 Active dapagliflozin propanediol (Farxiga) 10 mg tablet Take 1 tablet (10 mg total) by mouth 1 (one) time each day. Active chlorthalidone (HYGROTON) 25 mg tablet Take 1 tablet (25 mg total) by mouth 1 (one) time each day. Active metoprolol succinate (TOPROL-XL) 100 mg 24 hr tabletIndication s:Chronic diastolic congestive heart failure (CMS/HCC V24, CMS/HCC V28) Take 0.5 tablets (50 mg total) by mouth 1 (one) time each day. Do not crush or chew. 45 tablet 1 12/21/2024 Active FreeStyle Nicholas 2 Sensor kit 12/25/2024 Active busPIRone (BUSPAR) 10 mg tablet Take 1 tablet (10 mg total) by mouth 2 (two) times a day. Active polyethylene glycol (MIRALAX) 17 gram packet Take 17 g by mouth 1 (one) time each day. Active hydrALAZINE (APRESOLINE) 50 mg tabletIndication s:Hypertension, unspecified type Take 1 tablet (50 mg total) by mouth 2 (two) times a day. 180 tablet 3 04/05/2025 Active nitroglycerin (NITROSTAT) 0.3 mg SL tabletIndication s:Hypertension, unspecified type Place 1 tablet (0.3 mg total) under the tongue every 5 (five) minutes if needed for chest pain. 25 tablet 1 04/05/2025 Active Active Problems Problem Noted Date Diagnosed Date (HFpEF) heart failure with preserved ejection fr action 04/05/2025 Assessment & Plan (04/05/2025 12:51 PM EDT): Essentially this patient has evidence of HFpEF. No evidence of failure on exam at the present time. On aggressive medical management mainly for her hypertension. She does have a plethora of symptoms many of them are not necessarily cardiac in their source. Her blood pressure is slightly elevated today but aggressive management of her blood pressure in the past is put her at risk for orthostasis. She has no evidence of peripheral edema she has not no evidence of heart failure on exam so for the present time I would leave her medical therapy as is. SVT (supraventricular tachycardia) 04/05/2025 Assessment & Plan (04/05/2025 12:51 PM EDT): Patient with a history of SVT does well with beta-giancarlo therapy as far as stopping symptomatology. Acquired hammer toe of right foot 02/27/2025 Bradycardia 01/01/2025 Near syncope 01/01/2025 Swelling of ankle 12/20/2024 Overview (12/20/2024): AND LEGS Retention of urine 12/12/2024 Severe obesity 12/12/2024 Diabetes mellitus 12/12/2024 Sleep apnea 04/11/2024 Chest pain 12/15/2021 Chronic diastolic congestive heart failure 12/14 Overview (12/12/2024): [facility] to [facility]/2016 for CHF and NELLIE Assessment & Plan (01/27/2025 6:31 PM EDT): Echocardiogram from 2024 showed preserved LV systolic function. Aside from lower extremity edema, she appears compensated on exam. Edema likely secondary to venous insufficiency. Continue with losartan, dapagliflozin, chlorthalidone, hydralazine, metoprolol. Consider adding Entresto in place of losartan. We reviewed heart failure management including low-sodium diet, symptom surveillance, daily weights and medication compliance. The patient is aware they may take extra diuretic for intermittent evidence of mild congestive signs and symptoms. If the increase of frequency of as needed diuretic becomes more regular than they will make our office aware. If the patient has weight gain over 3lbs in one day or 5lbs over several days, they are aware to contact our office. With any severe or sustained symptoms, they are aware to contact EMS via 911 and go to the emergency room. Orders: ECG 12 lead metoprolol succinate (TOPROL-XL) 100 mg 24 hr tablet; Take 0.5 tablets (50 mg total) by mouth 1 (one) time each day. Do not crush or chew. Acquired hammer toe of left foot 10/07/2021 Constipation 10/07/2021 Peripheral angiopathy due to type 2 diabetes denver litus 10/07/2021 Renal osteodystrophy 02/23/2021 Anemia of chronic renal failure 02/16/2021 Hyperkalemia 02/16/2021 Pulmonary embolism 07/27/2018 CKD (chronic kidney disease) stage 3, GFR 30-59 ml/min 07/13/2018 Diverticulosis 07/13/2018 Infection/inflammation due t o internal orthopedic device/implant/graft, sequela 07/13/2018 Overview (06/08/2024): Post op wound infection s/p I&D down to bone Nephrolithiasis 07/13/2018 Overview (06/08/2024): history Osteomyelitis of left tibia 07/13/2018 Vitamin D deficiency 07/13/2018 Wound dehiscence 06/26/2018 Giordano's esophagus with low grade dysplasia Acute retention of urine 05/10/2018 Anemia 05/10/2018 Assessment & Plan (02/28/2025 6:12 PM EDT): Reviewed colonoscopy/EGD and capsule study. Reviewed findings on capsule study and possible workup to include DBE. Patient's anemia has improved. Will hold off at this time and continue supportive management. Consider if anemia persists or bleeding occurs. Assessment & Plan (01/04/2025 1:03 PM EDT): Awaiting capsule study results. Further recommendations pending results. Restart iron supplements, continue daily. Patient has follow up with PCP in January for LENY, defer to PCP for continued monitoring of labs. Consider hematology referral is persistent anemia and negative GI workup. Assessment & Plan (12/12/2024 10:12 AM EDT): Already due for repeat EGD for surveillance of Giordano's esophagus. In setting of iron deficiency anemia, will complete both EGD and colonoscopy for further evaluation. Recommend continued follow-up with cardiac team, please update us accordingly as to Holter monitor results. So far it appears her workup has been relatively negative. We did review the risks of anesthesia and cardiac/pulmonary outcomes. Repeat lab work today to assess anemia. Continue iron supplements as directed. Discussed with patient indications for procedure as well as risks of bleeding, infection, risk of perforation and reaction to anesthesia. Patient is aware of risk of missed lesions. Indications including screening for potential pre-malignant lesions and attempting to remove them. Patient understands and would like to proceed. Alternatives to endoscopic evaluation discussed. Benefit of procedure for screening diagnostic and therapeutic purposes discussed. The patient acknowledges risks, benefits and alternatives and all questions are answered. Patient is to follow up after the procedure for biopsy results Diabetic Patients: Hold Farxiga 3 days prior. Patient aware to adjust her short acting insulin during prep day as needed. Half evening insulin dose night prior, skip a.m. insulin day of procedure. If sugar is going down, OK to mix sugar into a CLEAR liquid and take as needed. General: Patient aware needs a ride home Nor to have liquids for at least three hours before procedure. Orders: CBC and differential; Future Iron and TIBC; Future Ferritin; Future Anxiety 05/10/2018 Fall 05/10/2018 Fracture of tibial plateau 05/10/2018 Repeated falls 05/10/2018 Chronic gastritis without bleeding 01/04/2018 Anxiety and depression 07/22/2016 Asthma 07/22/2016 Fibromyalgia 07/22/2016 GERD (gastroesophageal reflux disease) 6 Glaucoma 07/22/2016 Hyperlipidemia 06/11/2016 Assessment & Plan (01/27/2025 6:31 PM EDT): Continue with atorvastatin. Microalbuminuria 06/11/2016 Colon polyps 04/26/2016 DM (diabetes mellitus), type 2 with renal compli cations 04/26/2016 Hypertension 04/26/2016 Assessment & Plan (04/05/2025 12:51 PM EDT): Blood pressure slightly elevated. But attempts at aggressive management of her hypertension prompted orthostasis Orders: ECG 12 lead hydrALAZINE (APRESOLINE) 50 mg tablet; Take 1 tablet (50 mg total) by mouth 2 (two) times a day. nitroglycerin (NITROSTAT) 0.3 mg SL tablet; Place 1 tablet (0.3 mg total) under the tongue every 5 (five) minutes if needed for chest pain. Assessment & Plan (01/27/2025 6:31 PM EDT): Controlled. Continue with losartan, dapagliflozin, chlorthalidone, hydralazine, metoprolol and nifedipine. Hypothyroidism 04/26/2016 Psoriatic arthritis 04/26/2016 Type 2 diabetes mellitus 04/26/2016 Encounters Date Type Department Care Team Description 06/05/2025 7:33 AM EDT - 06/05/2025 11:59 PM EDT [facility] [address] [address] Encounter for screening mammogram for breast cancer Discharge Disposition: Home or Self Care from Last 3 Months Immunizations Immunization Administration Dates Next Due Influenza Quadravalent, 0.5m l (Fluad) 65yo and older 04/23/2021 Influenza Quadravalent, 0.5m l (Fluzone High-dose) 65yo and older 04/25/2023,04/21/2022,05/08/2020 Influenza trivalent, 0.5mL ( Fluzone High-dose) 65yo and older 05/02/2024,06/02/2019,04/28/2017 Influenza trivalent, 0.5mL, preservative free (Fluarix; FluLaval; Fluzone) ages 6mo and older (Afluria) 3 years and older 04/08/2021,04/08/2020 Influenza, Unspecified 04/18/2018 Moderna SARS-CoV-2 COVID-19, mRNA, LNP-S, preservative free 01/19/2021 Pneumococcal conjugate 13 va lent (Prevnar 13, PCV13) 2mo and older 06/11/2019 Pneumococcal conjugate 20 va lent (Prevnar 20, PCV 20) 2mo and older 04/27/2022 Pneumococcal polysaccharide 23 valent (Pneumovax 23) 2yo and older 12/14/2016 RSV, bivalent, protein subun it RSVpreF, 0.5mL, Preservative Free (Arexvy) 50yo and older 08/04/2023 Tdap Tetanus diptheria acell ular pertussis (Boostrix; Adacel) 7yo and older 02/09/2018 Zoster recombinant (Shingrix ) 19yo and older 02/09/2018 Surgical History Surgery Date Site/Laterality Comments COLONOSCOPY 05/17/2016 PROCEDURE: COLOREC CANC SCRN,COLONOSCPY HI RISK; COMMENT: Sigmoid diverticulosis otherwise normal MULTIPLE TOOTH EXTRACTIONS PROCEDURE: HISTORICAL DENTAL EXTRACTION OTHER SURGICAL HISTORY PROCEDURE: HISTORY OTHER; COMMENT: breast cyst excision SECTION x2 PROCEDURE: HISTORICAL DELIVERY TONSILLECTOMY PROCEDURE: HISTORICAL TONSILLECTOMY COLONOSCOPY 03/15/2011 PROCEDURE: HISTORICAL COLONOSCOPY; COMMENT: @ [facility] ESOPHAGOGASTRODUODENOSCOPY 05/17/2016 PROCEDURE: MA EGD TRANSORAL BIOPSY SINGLE/MULTIPLE; COMMENT: Distal esophagus Giordano's -small area indef for dysplasia ESOPHAGOGASTRODUODENOSCOPY 07/12/2016 PROCEDURE: MA EGD TRANSORAL BIOPSY SINGLE/MULTIPLE; COMMENT: Distal Giordano's multiple biopsies->giordano's,acute/chron ic inflammation,no dysplasia ESOPHAGOGASTRODUODENOSCOPY 07/22/2014 PROCEDURE: MA EGD TRANSORAL BIOPSY SINGLE/MULTIPLE; COMMENT: @ [facility].Barretts esophagus-biopsies ESOPHAGOGASTRODUODENOSCOPY 01/03/2018 PROCEDURE: MA EGD TRANSORAL BIOPSY SINGLE/MULTIPLE; COMMENT: Giordano's esophagus and ulcer at GE junction; biopsies indefinite for dyspoasia; repeat in 3 months ESOPHAGOGASTRODUODENOSCOPY 04/13/2018 PROCEDURE: MA EGD TRANSORAL BIOPSY SINGLE/MULTIPLE; COMMENT: Giordano's esophagus and hiatus hernia; healed esophageal ulcer.; Giordano's esophagus with low grade dysplasia OTHER SURGICAL HISTORY 06/21/2018 Left PROCEDURE: MA DEBRIDEMENT BONE 1ST 20 SQ CM/<; COMMENT: Tibia - with removal of medial screws & plate OTHER SURGICAL HISTORY 05/04/2018 Left PROCEDURE: MA ARTHRS AID TIBIAL FX PROX UNICONDYLAR BICONDYLAR; COMMENT: and 4 compartment fasciotomy OTHER SURGICAL HISTORY 04/2018 PROCEDURE: HISTORY OTHER; COMMENT: Bicondylar left tibial fracture ; ORIF OTHER SURGICAL HISTORY 04/2018 PROCEDURE: HISTORY OTHER; COMMENT: fasciotomy OTHER SURGICAL HISTORY 06/21/2018 PROCEDURE: HISTORY OTHER; COMMENT: wound debridement CATARACT EXTRACTION Bilateral PROCEDURE: HISTORICAL CATARACT REMOVAL KIDNEY STONE SURGERY PROCEDURE: MA NEPHROLITHOTOMY REMOVAL CALCULUS ESOPHAGOGASTRODUODENOSCOPY 05/13/2023 Giordano's esophagus negative for dysplasia ESOPHAGOGASTRODUODENOSCOPY 06/21/2022 ESOPHAGOGASTRODUODENOSCOPY 08/18/2020 COLONOSCOPY 08/18/2020 COLONOSCOPY 02/20/2021 TA x 1, recall 3 to 5 years COLONOSCOPY 12/19/2024 ESOPHAGOGASTRODUODENOSCOPY 12/19/2024 OTHER SURGICAL HISTORY 01/08/2025 Capsule study with mild patchy enteritis in the mid small bowel of uncertain etiology. Blood adherent to potentially ulcerated mucosa in the distal ileum. Consider DBE from below, continue supportive therapy. BREAST CYST ASPIRATION Right Medical History Medical History Date Comments Colon polyps 04/26/2016 DX:Colon polyps Essential hypertension 04/26/2016 DX:Essent ial hypertension Hypothyroidism 04/26/2016 DX:Hypothyroidis m Psoriatic arthritis ([facility] V24, [facility] V28) 04/26/2016 DX:Psoriatic arthritis ([facility]) Hyperlipidemia 06/11/2016 DX:Hyperlipidemi a Microalbuminuria 06/11/2016 DX:Microalbumin uria GERD (gastroesophageal reflux disease) 6 DX:GERD (gastroesophageal reflux disease) Asthma 07/22/2016 DX:Asthma Glaucoma 07/22/2016 DX:Glaucoma Anxiety and depression 07/22/2016 DX:Anxiet y and depression Fibromyalgia 07/22/2016 DX:Fibromyalgia DM (diabetes mellitus), type 2 with renal complications ([facility] V24, [facility] V28) 04/26/2016 DX:DM (diabetes mellitus), t ype 2 with renal complications ([facility]) CKD (chronic kidney disease) stage 3, GFR 30-59 ml/min ([facility] V24, [facility] V28) 07/13/2018 DX:CKD (chronic kidney disea se) stage 3, GFR 30-59 ml/min ([facility]) Nephrolithiasis 07/13/2018 DX:Nephrolithias is; COMMENT: history Infection/inflammation due t o internal orthopedic device/implant/graft, sequela 07/13/2018 DX:Infection/inflammation du e to internal orthopedic device/implant/graft, sequela; COMMENT: Post op wound infection s/p I&D down to bone Osteomyelitis of left tibia ([facility] V24, [facility] V28) 07/13/2018 DX:Osteomyelitis of left tib ia ([facility]) Diverticulosis 07/13/2018 DX:Diverticulosi s Chronic gastritis without [...] Date Smoking Tobacco: Never Smokeless Tobacco: Never Tobacco Cessation:Counseling Given: Not Answered Alcohol Use Standard Drinks/Week Comments Not Currently 0 (1 standard drink = 0.6 oz pur e alcohol) Interpersonal Safety Answer Date Record ed Physical Abuse Unrecognized value 12/19/2024 Verbal Abuse Unrecognized value 12/19/2024 Comments No Sex and Gender Information Value Date Recorded Sex Assigned at Not on file Legal Sex Female 6:48 AM EST Gender Identity Not on file Sexual Orientation Not on file Obstetrics History Para Term AB IAB SAB Ectopic Multiple Livin g Live Births 1 2 Date Outcome GA Total Labor Labor/2nd/3rd Weight Sex Type Anes PTL Sandra A1 A5 Name Clin Last Filed Vital Signs Vital Sign Reading Time Taken Comments Blood Pressure 150/70 04/05/2025 9:59 AM EDT Pulse 69 04/05/2025 9:59 AM EDT Temperature 36.8 C (98.2 F) 12/19/2024 9:57 AM EDT Respiratory Rate 18 12/19/2024 10:17 AM EDT Oxygen Saturation 97% 04/05/2025 9:59 AM EDT Inhaled Oxygen Concentration - - Weight 74.4 kg (164 lb) 06/05/2025 7:49 AM EDT Height 147.3 cm (4' 10 ) 06/05/2025 7:49 AM EDT Body Mass Index 34.28 06/05/2025 7:49 AM EDT Plan of Treatment Upcoming Encounters Date Type Department Care Team (Late st Contact Info) Description 09/03/2025 8:30 AM EST Office Visit Gastroenterology - [address] [place] [id number] Claudia Calvert PA [address] [place] [address] Health Maintenance Due Date Last Done Comments Diabetes: Annual Foot Exam 12/09/1960 Diabetes: Annual Retina Eye Exam 12/09/1960 Zoster Vaccines (2 of 2) 04/06/2018 02/09/2018 Cholesterol Screening (Lipid Panel) 07/18/2022 Hepatitis C Screening 07/18/2022 Medicare Annual Wellness Visit 07/18/2022 Social Influencers of Health Screening 07/18/2022 Depression Screening 08/08/2024 COVID-19 Vaccine ( season) 2025 01/19/2021, 11/19/2020, 10/21/2020 Diabetes: Blood Sugar Control Test (HGBA1C) 06/04/2025 12/03/2024, 10/16/2024, 07/25/2024 Falls Risk Assessment 12/19/2025 12/19/2024 Diabetes: Annual GFR (Glomerular Filtration Rate) 01/18/2026 01/18/2025, 12/24/2024, 12/03/2024, Additional history exists Hypertension/CHF/CAD Annual BMP Blood Test 01/18/2026 01/18/2025, 12/24/2024, 12/03/2024, Additional history exists Diabetes: Annual Urine Albumin-Creatinine Ratio (uACR) 02/21/2026 02/21/2025, 04/17/2024 DTaP,Tdap,and Td Vaccines (2 - Td or Tdap) 02/10/2028 02/09/2018 Osteoporosis Screening (Bone Density Screening) 02/24/2028 02/23/2018 Colorectal Cancer Screening: Colonoscopy 12/19/2029 12/19/2024, 12/18/2024, 05/17/2016 RSV Immunization Adult Patients Completed 08/04/2023 Influenza Vaccine Completed 04/18/2025, , 04/08/2024, Additional history exists Pneumococcal Vaccine: 50+ Years Completed 05/06/2025, 04/27/2022, 06/11/2019, Additional history exists Breast Cancer Screening Discontinued 06/05/20, 06/04/2024, 05/23/2023, Additional history exists HIB Vaccines Aged Out [...] age to complete this topic Medical Devices Implanted Type Area Skiver Uppers Or Linings Device Identifier Shelf Expiration Date Model / Serial / Lot Implants Implants Left: Leg Procedures Procedure Name Priority Date/Time Associated Diagnosis Comments MG MAMMO DIGITAL SCREENING W JERMAINE BILAT Routine 06/05/2025 8:01 AM EDT Encounter for screening mammogram for breast cancer COMPREHENSIVE METABOLIC PANEL Routine 01/18/2025 9:13 AM EDT Iron deficiency anemia secondary to inadequate dietary iron intake Chronic kidney disease, unspecified Shortness of breath COLONOSCOPY Routine 12/19/2024 9:56 AM EDT Polyp of colon, unspecified part of colon, unspecified type Anemia, unspecified type HEMOGLOBIN A1C Routine 12/03/2024 8:50 AM EDT Type 2 diabetes mellitus with diabetic chronic kidney disease ([facility] V24, [facility] V28) OLIVIA DEXA AXIAL SKELETON Routine 02/23/2018 11:28 AM EDT Encounter for screening for osteoporosis from Last 3 Months or Most Recently Relevant to Health Maintenance Results * MG Mammo Digital Screening w Jermaine bilat (06/05/2025 8:01 AM EDT) Anatomical Region Laterality Modality Breast Bilateral Mammography 06/05/2025 8:19 AM EDT Impressions 06/05/2025 8:56 AM EDT Benign. BI-RADS CATEGORY: 2 - BENIGN RECOMMENDATION: Screening bilateral mammogram is recommended in 1 year. Mammo Location: [facility], [address] [place] [address], [id number], . -------- FINAL REPORT -------- Dictated By: Zack Munoz Dictated Date: 06/05/2025 08:19 ET Assigned Physician: Zack Munoz Reviewed and Electronically Signed By: Zack Munoz Signed Date: 06/05/2025 08:56 ET Workstation ID: [id number] Transcribed By: Self Edit Transcribed Date: 06/05/2025 08:26 ET Narrative 06/05/2025 8:56 AM EDT CLINICAL: 74 years old, Female, routine annual exam. COMPARISON: 05/27/2024 and 05/23/2023. TECHNIQUE: Bilateral MLO and CC views were obtained digitally with 3-D mammogram (digital breast tomosynthesis). Computer-aided detection was utilized in evaluation of this exam (CAD). FINDINGS: There are extensive benign calcifications in both breasts. No suspicious mass or architectural distortion. No suspicious calcification. There has been no significant change from prior exam(s). BREAST DENSITY: B - There are scattered areas of fibroglandular density. Procedure Note Zack Munoz MD - 06/05/2025 CLINICAL: 74 years old, Female, routine annual exam. COMPARISON: 05/27/2024 and 05/23/2023. TECHNIQUE: Bilateral MLO and CC views were obtained digitally with 3-Dmammogram (digital breast tomosynthesis). Computer-aided detection wasutilized in evaluation of this exam (CAD). FINDINGS: There are extensive benign calcifications in both breasts. No suspicious mass or architectural distortion. No suspiciouscalcification. There has been no significant change from prior exam(s). BREAST DENSITY: B - There are scattered areas of fibroglandular density. IMPRESSION: Benign. BI-RADS CATEGORY: 2 - BENIGN RECOMMENDATION: Screening bilateral mammogram is recommended in 1 year. Mammo Location: [facility], [address] [place] [address], [id number], . -------- FINAL REPORT -------- Dictated By: Zack Munoz Dictated Date: 06/05/2025 08:19 ET Assigned Physician: Zack Munoz Reviewed and Electronically Signed By: Zack Munoz Signed Date: 06/05/2025 08:56 ET Workstation ID: [id number] Transcribed By: Self Edit Transcribed Date: 06/05/2025 08:26 ET us Self Referral Sppl IMG BI PROCEDURES Final Resul t * (ABNORMAL) Comprehensive metabolic panel (01/18/2025 9:13 AM EDT) Sodium 136 133 - 145 mmol/L LAB CHEMISTRY METHOD 01/18/2025 11:08 AM EDT [facility] Potassium 4.2 3.5 - 5.5 mmol/L LAB CHEMISTRY METHOD 01/18/2025 11:08 AM EDT [facility] Chloride 105 96 - 110 mmol/L LAB CHEMISTRY METHOD 01/18/2025 11:08 AM EDT [facility] CO2 22 21 - 32 mmol/L LAB CHEMISTRY METHOD 01/18/2025 11:08 AM EDT [facility] Anion Gap 9 3 - 11 LAB CHEMISTRY METHOD 01/18/2025 11:08 AM [facility] Glucose 158(H) 70 - 100 mg/dL LAB CHEMISTRY METHOD 01/18/2025 11:08 AM [facility] BUN 34(H) 5 - 25 mg/dL LAB CHEMISTRY METHOD 01/18/2025 11:08 AM [facility] Creatinine 1.72(H) 0.50 - 1.10 mg/dL LAB CHEMISTRY METHOD 01/18/2025 11:08 AM [facility] eGFR 31(L) >=60 mL/min/1. 73m2 LAB CHEMISTRY METHOD 01/18/2025 11:08 AM [facility] Comment:Calculation based on the Chronic Kidney Disease Epidemiology Collaboration (CKD-EPI) equation refit without adjustment for race. BUN/Creatinine Ratio 19.8 LAB CHEMISTRY METHOD 01/18/2025 11:08 AM [facility] Calcium 9.2 8.5 - 10.5 mg/dL LAB CHEMISTRY METHOD 01/18/2025 11:08 AM [facility] AST (SGOT) 12 10 - 42 unit/L LAB CHEMISTRY METHOD 01/18/2025 11:08 AM [facility] ALT (SGPT) 19 10 - 60 unit/L LAB CHEMISTRY METHOD 01/18/2025 11:08 AM [facility] Alkaline Phosphatase 56 42 - 121 unit/L LAB CHEMISTRY METHOD 01/18/2025 11:08 AM [facility] Total Protein 6.8 6.0 - 8.0 g/dL LAB CHEMISTRY METHOD 01/18/2025 11:08 AM [facility] Albumin 3.6 3.2 - 5.0 g/dL LAB CHEMISTRY METHOD 01/18/2025 11:08 AM [facility] Total Bilirubin 0.3 0.0 - 1.4 mg/dL LAB CHEMISTRY METHOD 01/18/2025 11:08 AM [facility] Blood Venous blood specimen / Unknown Venipuncture / Unknown 01/18/2025 9:13 AM EDT 01/18/2025 9:40 AM EDT Cinthya Ross MD LAB BLOOD ORDERABLES Final Re sult [facility]) [facility] [address] [place] [address], [place] [phone] * COLONOSCOPY Anesthesia - MAC; [facility] ENDOSCOPY (12/19/2024 9:56 AM EDT) Anatomical Region Laterality Modality Endoscopy 12/19/2024 9:40 AM EDT Impressions 12/19/2024 9:56 AM EDT - Hemorrhoids found on perianal exam. - The examined portion of the ileum was normal. - Diverticulosis in the sigmoid colon. - Two 3 mm polyps in the rectum, removed with a cold snare. Resected and retrieved. - Internal hemorrhoids. - The examination was otherwise normal. Recommendation: - Await pathology results. - Repeat colonoscopy for surveillance based on pathology results. Narrative 12/19/2024 9:56 AM EDT [facility] GI Patient Name: Molly Teixeira Procedure Date: 12/19/2024 9:40 AM Date of : 1950 Age: 74 Gender: Female Note Status: Finalized Attending MD: Phuong Recinos MD, Procedure Date No Time: 12/19/2024 Procedure: Colonoscopy Indications: Iron deficiency anemia Providers: Phuong Recinos MD Referring MD: Cinthya Ross MD Medicines: Propofol per Anesthesia Complications: No immediate complications. Estimated Blood Loss: Estimated blood loss: none. Procedure: Pre-Anesthesia Assessment: - ASA Grade Assessment: III - A patient with severe systemic disease. After I obtained informed consent, the scope was passed under direct vision. Throughout the procedure, the patient's blood pressure, pulse, and oxygen saturations were monitored continuously.The Colonoscope was introduced through the anus and advanced to the terminal ileum. The colonoscopy was performed without difficulty. The patient tolerated the procedure well. The quality of the bowel preparation was good. Findings: Hemorrhoids were found on perianal exam. The terminal ileum appeared normal. Multiple small-mouthed diverticula were found in the sigmoid colon. Two sessile polyps were found in the rectum. The polyps were 3 mm in size. These polyps were removed with a cold snare. Resection and retrieval were complete. Internal hemorrhoids were found during retroflexion. The hemorrhoids were Grade I (internal hemorrhoids that do not prolapse). The exam was otherwise without abnormality. Procedure Code(s): --- Professional --- 47305, Colonoscopy, flexible; with removal of tumor(s), polyp(s), or other lesion(s) by snare technique Diagnosis Code(s): --- Professional --- K64.0, First degree hemorrhoids D12.8, Benign neoplasm of rectum D50.9, Iron deficiency anemia, unspecified CPT copyright 2020 [employer] [place] [employer]. All rights reserved. The codes documented in this report are preliminary and upon coal tower operator review may be revised to meet current compliance requirements. Phuong Recinos MD 12/19/2024 9:55:55 AM This report has been signed electronically.Phuong Recinos MD Number of Addenda: 0 Note Initiated On: 12/19/2024 9:40 AM Scope In: Scope Out: Endoscopy Department at [facility] - [address] [place] [phone] Procedure Note Phuong Recinos MD - 12/19/2024 [facility] GI Patient Name: Molly Teixeira Procedure Date: 12/19/2024 9:40 AM Date of : 1950 Age: 74 Gender: Female Note Status: Finalized Attending MD: Phuong Recinos MD, Procedure Date No Time: 12/19/2024 Procedure: Colonoscopy Indications: Iron deficiency anemia Providers: Phuong Recinos MD Referring MD: Cinthya Ross MD Medicines: Propofol per Anesthesia Complications: No immediate complications. Estimated Blood Loss: Estimated blood loss: none. Procedure: Pre-Anesthesia Assessment: - ASA Grade Assessment: III - A patient with severe systemic disease. After I obtained informed consent, the scope was passed under direct vision. Throughout theprocedure, the patient's blood pressure, pulse, and oxygen saturations were monitored continuously.The Colonoscope was introduced through the anus and advanced to the terminal ileum. The colonoscopy was performed without difficulty. The patient tolerated the procedure well. The quality of the bowel preparation was good. Findings: Hemorrhoids were found on perianal exam. The terminal ileum appeared normal. Multiple small-mouthed diverticula were found inthe sigmoid colon. Two sessile polyps were found in the rectum. The polyps were 3 mm in size. These polyps were removed with a cold snare. Resection and retrieval were complete. Internal hemorrhoids were found duringretroflexion. The hemorrhoids were Grade I (internal hemorrhoids that do not prolapse). The exam was otherwise without abnormality. Procedure Code(s): --- Professional --- 80481, Colonoscopy, flexible; with removal of tumor(s), polyp(s), or other lesion(s) by snare technique Diagnosis Code(s): --- Professional --- K64.0, First degree hemorrhoids D12.8, Benign neoplasm of rectum D50.9, Iron deficiency anemia, unspecified CPT copyright 2020 [employer] [place] [employer]. All rights reserved. The codes documented in this report are preliminary and upon coal tower operator reviewmay be revised to meet current compliance requirements. Phuong Recinos MD 12/19/2024 9:55:55 AM This report has been signed electronically.Phuong Recinos MD Number of Addenda: 0 Note Initiated On: 12/19/2024 9:40 AM Scope In: Scope Out: Endoscopy Department at [facility] - [address] [place] [phone] IMPRESSION: - Hemorrhoids found on perianal exam. - The examined portion of the ileum was normal. - Diverticulosis in the sigmoid colon. - Two 3 mm polyps in the rectum, removed with acold snare. Resected and retrieved. - Internal hemorrhoids. - The examination was otherwise normal. Recommendation: - Await pathology results. - Repeat colonoscopy for surveillance based on pathology results. us Phuong Recinos MD GI~PROCEDURE ORDERABLES Final Result * (ABNORMAL) Hemoglobin A1c (12/03/2024 8:50 AM EDT) Hemoglobin A1C 7.5(H) <6.5 % LAB CHEMISTRY METHOD 12/03/2024 1:54 PM EDT [facility] Mean Bld Glu Estim. 169 mg/dL LAB CHEMISTRY METHOD 12/03/2024 1:54 PM EDT [facility] Blood Venous blood specimen / Unknown Venipuncture / Unknown 12/03/2024 8:50 AM EDT 12/03/2024 9:25 AM EDT us Cinthya Ross MD LAB BLOOD ORDERABLES Final Re sult [facility] [address] [place] [address], [place] [phone] * OLIVIA DEXA AXIAL SKELETON (02/23/2018 11:28 AM EDT) Anatomical Region Laterality Modality Mammography 02/23/2018 9:59 AM EDT Narrative 02/23/2018 11:28 AM EDT [facility] Diagnostic Imaging Department [address] [place] [address] Patient: MOLLY TEIXEIRA D.O.B./Age/Sex: 1950 - 67 - F Unit#: [id number] Location/Status: SPDIMAM/REG CLI Mnemonic/Ordering Site: MAMDEXAAX/SPMAM Ordering Physician: CINTHYA ROSS MD Olivia Dexa Axial Skeleton - 02/23/186 HISTORY: The patient is a 67-year-old postmenopausal female with clinical concern for metabolic bone disease. FINDINGS: Dual [...] 106% of that of age matched controls. This yields a T-score of -0.6 and a [...] probability of hip fracture of 3.5%. Code 03582 Dictating Physician: JANICE NELSON MD Electronically Signed by: JANICE NELSON MD Dic Date/Time: 02/23/18 112 Sign date/Time: 02/23/18 112 Procedure Note Janice Nelson MD - 07/27/2022 [facility] Diagnostic Imaging Department [address] [place] [address] Patient: MOLLY TEIXEIRA/Age/Sex: 1950 67 - F Unit#: [id number] Location/Status: SPDIMAM/REG CLI Mnemonic/Ordering Site: MAMDEXAAX/SPMAM Ordering Physician: CINTHYA ROSS MD Olivia Dexa Axial Skeleton - 02/23/18 - 1045 HISTORY: The patient is a 67-year-old postmenopausal [...] density of the femurs bilaterally is 0.929 gm/zx3wlvfg is 92% of that of young normals [...] probability of hip fracture of 3.5%. Code 53026 Dictating Physician: JANICE NELSON MD Electronically Signed by: JANICE NELSON MD Dic Date/Time: 02/23/181126 Sign date/Time: 02/23/181127 Cinthya Ross MD IM BI PROCEDURES Final Resul t from Last 3 Months or Most Recently Relevant to Health Maintenance Insurance [employer] [place] - [place] Care Teams Systems Trainer Relationship Specialty Start Date End Date Cinthya Ross MD [address] PCP - General Internal Medicine 01/16/19
--- OUTSIDE RECORDS SUMMARY | 2025-08-05 21:42 | XMS_ITS | Encounter Summary ---
Author Organization [facility] Address [address] [place] [address] Care Team Providers Care Printing Table Worker Name Role Phone Cinthya Montiel MD Primary Care Provider [phone] Reason for Visit * Reason Comments Anemia Encounter Details Date Type Department Care Team (Late Contact Info) Description 01/02/2025 Billing Patient Not Present Gastroenterology - [address] [place] [address] [phone] Carter Lima MD [address] [place] [address] [address] Social History Tobacco Use Types Packs/Day Years Used Date Smoking Tobacco: Never Smokeless Tobacco: Never Alcohol Use Standard Drinks/Week Comments Not Currently 0 (1 standard drink = 0.6 oz pur e alcohol) Interpersonal Safety Answer Date Record ed Physical Abuse Unrecognized value 12/19/2024 Verbal Abuse Unrecognized value 12/19/2024 Comments Yes Sex and Gender Information Value Date Recorded Sex Assigned at Not on file Legal Sex Female 6:48 AM EST Gender Identity Not on file Sexual Orientation Not on file documented as of this encounter Plan of Treatment Upcoming Encounters Date Type Department Care Team (Late Contact Info) Description 09/03/2025 8:30 AM EST Office Visit Gastroenterology - [address] [place] [address] [phone] Claudia Calvert PA [address] [facility] [address] [address] documented as of this encounter Visit Diagnoses Not on filedocumented in this encounter Care Teams Printing Table Worker Relationship Specialty Start Date End Date Cinthya Montiel MD [address] PCP - General Internal Medicine 01/16/19 documented as of this encounter
--- OUTSIDE RECORDS SUMMARY | 2025-08-05 21:42 | XMS_ITS | Data Portability ---
Author Organization [place] - [facility], Allergy Address [address] [place] [phone] Care Team Providers Care Software Requirements Engineer Name Role Phone JAYLIN ROSS Primary Care [...] management options. [email or web address] Not available 07/25/2024 11:56:47 06/20/2025 06/20/2025 Assessment: - Tympanosclerosis, bilateral. - TMJ discomfort. - Age-related hearing loss. Plan: Tympanosclerosis and hearing loss: I discuss the patient's hearing levels, noting borderline normal hearing at lower frequencies with severe loss at higher frequencies. I recommend TV ears as a convenient amplification option for television viewing, available at electronic stores such as [employer] Hearing aids are not deemed necessary at this time based on her current needs. TMJ discomfort: I advise management with soft foods, warm compresses, gentle massage, and occasional use of anti-inflammatory medications such as Motrin for symptom relief. [...] By Organization Details Last Modified Time 06/20/2025 14613 - Consider purchasing TV ears for amplification [...] (PROC ) No observ ation record ed. [email or web address] [address] [facility], [place], [address], 07/16/2024 10:25:08 06/20/20 25 audio gram No observ ation record ed. BARCODE Not Available 2024 16:09:45 Result Notes None recorded. Problems Name Problem SNOMED Code Status Onset Date Resolution Date Notes Provider Name and Address Organization Details Recorded Time Obstructive sleep apnea syndrome 04438764 Active 2023 HAYDEE ANDREWS MD [address] [facility] [place], [place], [phone], [place] - [facility] 4 19:51:24 Chronic insomnia 660530005 Active 2023 HAYDEE ANDREWS MD [address] [facility] [place], [place], [address], [place] - [facility] 4 11:51:07 Sensorineur al hearing loss of bilateral ears 843004722 Active 2024 DONAL SANCHEZ AUD [address] [facility] [place], [place], [address], [facility] - [facility] 5 15:00:33 Bilateral tinnitus 0565981808890 Active 2024 DONAL SANCHEZ AUD [address] [facility] [place], [place], [address], [facility] - [facility] 5 15:00:35 Temporomand ibular joint disorder 08130394 Active 2024 HAYDEE ANDREWS MD [address] [facility], [place], [address], [facility] - [facility] 5 15:49:36 Problem Notes None recorded. Procedures Surgical History Date Name Laterality Status Provider Name and Address Organization Details Recorded Time Comp Audio with Tymps - 44558 & 40357 completed DONAL SANCHEZ AUD [address] [facility] [place] [address], [place], [address], [facility] - [facility] 06/20/2025 15:00:25 4 Telehealth completed HAYDEE ANDREWS MD [address] [facility],[place] [address], [place], [address], [place] - [facility] 07/24/2024 13:35:50 FOL_DP completed HAYDEE ANDREWS MD [address] [place] [address], [place], [address], [place] - [facility] 07/03/2024 19:51:17 Imaging Results None recorded. Procedure [...] Updated DateTime 06/20/2025 147.32 cm 34.5 kg/m2 60167.74 g GUNJAN ASHLYN [place] - [facility] 06/20/2025 15:27:09 Date Recorded Body height Body mass index (BMI) Body weight Provider Name and Address Organization Details Last Updated DateTime 07/06/2024 147.32 cm 36.2 kg/m2 37243.48 g Shanel Pineda [place] - [facility] 07/06/2024 10:55:16 Social History None recorded. [...] ICD10 Code Diagnosis IMO Codes Diagnosis Note [id number] HAYDEE ANDREWS MD [facility] [address] [address] 07/06/2024 10:14:15 07/06/2024 11:01:20 Obstructive sleep apnea syndrome 08404750 G47.33 Body mass index 30+ - obesity 398756283 Z68.36 [id number] HAYDEE ANDREWS MD [facility] [address] [address] 07/25/2024 11:43:27 07/25/2024 12:50:40 Obstructive sleep apnea syndrome 52709540 G47.33 Chronic insomnia 7417372 04 F51.04 [id number] HAYDEE ANDREWS MD [facility] [address] [address] 06/20/2025 14:06:07 06/20/2025 15:52:27 Sensorineural hearing loss of bilateral ears 426204057 H90.3 59359090 Right Ear:Border line normal hearing through 3K Hz sloping to a severe SNHL with excellent speech discrimina tion.Type B tympanogra m.Left Ear:Border line normal hearing through 3K Hz sloping to a severe SNHL with excellent speech discrimina tion.Type B tympanogra m. Bilateral tinnitus 064[address] 74424 102 H93.13 737146 Temporoman dibular joint disorder 44417629 M26.609 823738 Health Concerns Section Related Observation LastModified by Organization Detai ls LastModified Time None Recorded Concern Status LastModified by Organization Details LastModified Time None Recorded Advance Directives Directive None Recorded Payers Insurance Date Sequence Insurance Name Policy Number Policy Silveira Covered Member ID Silveira Member ID Guarantor Name 06/04/2025 2 [facility] - MEDICARE PREFERRED (MEDICARE REPLACEMENT PPO) JAIDEN Teixeira [id number] Molly Teixeira 06/17/2025 1 [facility] - MEDICARE PREFERRED (MEDICARE REPLACEMENT HMO) JAIDEN Teixeira [id number] Molly Teixeira 06/20/2025 2 [place] [facility] Molly Teixeira [id number] Molly Teixeira Notes Date Note Type Note Provider Name and Address Organization Details Recorded Time 07/06/2024 text/html ROS as noted in the HPI LOKI?Prior PSG at [address] [facility] - was told she stopped breathing even with CPAP BMI 36 (today)+insomnia may not fall asleep until 4-5am getting only 3 hours of restdaytime headaches HAYDEE ANDREWS MD [address] [place] [address],[address], [phone], [facility] 07/06/2024 11:11:55 07/25/2024 text/html ROS as noted in the HPI LOKI, insomnia 10/01/23 PSG SMSBMI 37AHI 33central and mixed events - eventsCPAP - was told she stopped breathing even with CPAP +insomnia may not fall asleep until 4-5am getting only 3 hours of restdaytime headachesVER[facility] has been hesitant to initiate sleep aids beyond melatonin, zoloft HAYDEE ANDREWS MD [address] [place] [address],[address], [address], [facility] 07/25/2024 11:57:08 06/20/2025 text/html hearing loss PV 07/25/24 Annette (TH) not candidate for inspire given BMI and insomnia Molly Teixeiar is a 74-year-old female who presents for [...] soft-spoken dialogue and accents, particularly while watching [place] shows, often resorting to subtitles. Additionally, she [...] visit a dentist regularly. HAYDEE ANDREWS MD [address] [place] [address], [place], [address], [facility] - [facility] 06/20/2025 15:52:15 OBGyn Episode No OBEpisode recorded.
--- OUTSIDE RECORDS SUMMARY | 2025-08-05 21:42 | XMS_ITS | Data Portability ---
Author Organization [place] - [facility] Address [address] [place] [phone] Care Team Providers Care Digital Court Reporter Name Role Phone JAYLIN ROSS Primary Care Provider [phone] Assessment Encounter Date Assessment Date Assessment LastModified by Organization Details LastModified Time 08/11/2018 08/11/2018 This is a 67-year-old female with a significant history of diabetes, coronary artery disease, COPD, and pulmonary emboli who had a complex history of a fracture of the left lower extremity during April 2018 and who calls today for increased swelling of the left lower extremity. At time of presentation the patient was afebrile, not tachycardic, not hypoxic, and in no acute distress. Patient has a very long and complex history with fracture of the left lower leg with subsequent oral surgery and infection of the hardware that had to be removed. Patient calls today secondary to concern for home health nurse about increased swelling of the left lower leg. Clinical exam reveals a chronically ill-appearing 67-year-old female sitting in a wheelchair at home no acute distress. Examination of the left lower leg reveals 2 major chronic appearing ulcers and healing wounds that are covering approximately 50% of the length of the calf with a wound on the medial and lateral aspects of the lower leg. There is evidence of fresh granulation tissue as well as postinflammatory hypopigmentation at the wound edges. There is very mild erythema extending over the healthy tissue. No definitive evidence of cellulitis, however, cellulitis or other deeper space infectious processes not completely excluded. I doubt the presence of compartment syndrome at this time. The patient is currently anticoagulated on Lovenox and Coumadin but has been subtherapeutic on Coumadin for the past several days with an INR of 1.2. 2:30 PM: I spoke to KANE Young, home health nurse who manages the wound Vac, and discussed the recent history of the patient and recent exam findings. Hannah confirms that the patient has not been on antibiotics and the mild erythema of the lower leg is not significantly different from her baseline after being discharged from a rehabilitation center. Hannah stated her service will be able to reapply the wound Vac as soon as the ultrasound was performed. Clinical history and exam findings are concerning for significant increased edema and tenderness of the left lower extremity with the concern of DVT that may have formed in the setting of current anticoagulation versus cellulitis or other infectious process. Patient does not have a history of prior DVT and so if the ultrasound is positive for DVT this will be an acute DVT formed while anticoagulated. If there is no DVT on ultrasound the concern for cellulitis or other infectious process is significantly raised. If no DVT identified patient may need to have further evaluation at the hospital or by the orthopedic surgeon. The patient was given very strict precautions to seek immediate medical attention including any worsening pain, a measured fever, red streaking, or any other worsening symptoms and the patient expressed understanding. Time On Scene with Patient: 00:56:57 Disclaimer: Voice to text dictation was used to create this chart. Dictation errors may be present. [email or web address] Not available 08/11/2018 15:19:08 Plan of Treatment Reminders Order Date Submit Date Provider Last Modified By Organization Details Last Modified Time Details Appointments None recorded. Lab None recorded. Referral None recorded. Procedures None recorded. Surgeries None recorded. Imaging US, duplex, venous, lower extremity - Hx of PE on anticoagul ation. Hx of surgery to left lower extremity. Increased swelling of the left lower extremity for 1 week. Current open wounds in healing process. Question DVT, cellulitis , abscess, hematoma, etc. 2018 019 [email or web address] [facility] ([facility]), [address] [place] [address], [place], [address], 9 14:42:19 Medication Orders None recorded. Patient TargetsNo targets recorded. Patient Instructions Encounter Date Encounter Id Patient Instructions Last Modified By Organization Details Last Modified Time 08/11/2018 [id number] YOU HAVE SIGNIFICANT INCREASED SWELLING OF YOUR SURGICAL LEG. THERE IS MILD REDNESS BUT NO DEFINITIVE EVIDENCE OF SKIN INFECTION AT THIS TIME. YOU HAVE A ULTRASOUND ORDERED WITH [facility]. [facility] WILL CALL YOU TO SCHEDULE A TIME TO DO THE ULTRASOUND. [facility] WILL CALL YOU WITH THE RESULTS OF THE ULTRASOUND. PLEASE SEEK IMMEDIATE MEDICAL ATTENTION IF ANY INCREASED SWELLING, INCREASED REDNESS, FEVER, NAUSEA, VOMITING, OR ANY OTHER WORSENING SYMPTOMS. Thank you for your visit with [facility] today. We cannot always find the exact cause of your symptoms during your initial visit. Please follow up with your primary care provider or specialist within 12-24 hours to be rechecked or seek medical attention if your symptoms do not go away or get worse. If you develop any new or worsening symptoms and need after hours care, please go to nearest ER and/or call 911. If you have additional concerns or develop a change in your condition between 8am-10pm, please call [facility] at [phone] to help navigate your care. [email or web address] Not available 08/11/2018 14:44:05 Reason for Referral None Reported. Procedures Surgical History Date Name Laterality Status Provider Name and Address Organization Details Recorded Time section completed KADE Higginbotham [address] [place], [address], [place] [facility] 08/11/2018 14:06:40 Tonsillectomy completed KADE Higginbotham [address] [place], [address], [place] [facility] 08/11/2018 14:07:01 Imaging Results None recorded. Procedure Notes None recorded. Medical Equipment None Reported. Allergies Allergen ID Allergen Name Allergen Category Reaction Reaction Severity Criticality Documentation Date Start Date Code Code System Note Provider Name and Address Organization Details Recorded Time 45956 codeine medicatio n Not available Not available Not available 08/11/2018 2670 RxNorm KADE Valencia [address] [place], [address], [place] [facility] 9 13:56:07 21049 Substance with sulfonami de structure and antibacte rial mechanism of action (substanc e) medicatio n Not available Not available Not available 08/11/2018 88861 8003 SNOMED KADE Valencia [address] [place], [address], [place] [facility] 9 13:56:11 31836 Product containin g penicilli n (product) medicatio n Not available Not available Not available 08/11/2018 03956 8001 SNOMED KADE Valencia [address], [facility] [place], [address], [place] [facility] 9 13:56:17 Medications Name Sig Start Date Stop Date Status Note LastModified by Organization Details LastModified Time losartan 50 mg tablet active Not Available Not Available Not Available latanoprost 0.005 % eye drops active Not Available Not Available Not Available gabapentin 600 mg tablet active Not Available Not Available No t Available atorvastatin 20 mg tablet active Not Available Not Available No t Available metoprolol succinate ER 100 mg tablet,extended release 24 hr active Not Available Not Availabl e Not Available simvastatin 40 mg tablet active Not Available Not Available No t Available levothyroxine 100 mcg tablet 08/11 completed Not Available Not Available Not Available erythromycin 250 mg tablet 08/11 completed Not Available Not Available Not Available alprazolam 0.5 mg tablet active Not Available Not Available No t Available alprazolam 0.25 mg tablet 08/11 completed Not Available Not Available Not Available tamsulosin 0.4 mg capsule active Not Available Not Available N ot Available Humalog U-100 Insulin 100 unit/mL subcutaneous solution 08/11 completed Not Available Not Available Not Available nifedipine ER 90 mg tablet,extended release 24 hr active Not Available Not Availabl e Not Available paroxetine 20 mg tablet active Not Available Not Available No t Available losartan 25 mg tablet 08/11 completed Not Available Not Available Not Available gabapentin 300 mg capsule 08/11 completed Not Available Not Available Not Available omeprazole 20 mg capsule,delayed release active Not Available Not Available Not Available levofloxacin 500 mg tablet 08/11 completed Not Available Not Available Not Available levofloxacin 750 mg tablet 08/11 completed Not Available Not Available Not Available fluoxetine 20 mg capsule active Not Available Not Available N ot Available Ventolin HFA 90 mcg/actuation aerosol inhaler active Not Available Not Availa ble Not Available enoxaparin 120 mg/0.8 mL subcutaneous syringe active Not Available Not Available Not Available Jantoven 2 mg tablet 08/11 completed Not Available Not Available Not Available Jantoven 5 mg tablet 08/11 completed Not Available Not Available Not Available Jantoven 10 mg tablet active Not Available Not Available Not Available Boostrix Tdap 2.5 Lf unit-8 mcg-5 Lf/0.5 mL intramuscular syringe 08/11 completed Not Available Not Available Not Available oxycodone active Not Available Not Salud ilable Not Available rifampin 08/11 completed Not Available Not Available Not Available warfarin active Not Available Not Avai lable Not Available Levaquin active Not Available Not Avai lable Not Available Lantus Solostar U-100 Insulin 100 unit/mL (3 mL) subcutaneous pen active Not Available Not Available Not Available Humalog KwikPen (U-100) Insulin 100 unit/mL subcutaneous active Not Available Not Available Not Available BD Ultra-Fine Piper Pen Needle 32 gauge x 5/32 08/11 completed Not Available Not Available Not Available ProAir RespiClick 90 mcg/actuation breath activated active Not Available Not Available No t Available Shingrix (PF) 50 mcg/0.5 mL intramuscular suspension, kit 08/11 completed Not Available Not Available Not Available OneTouch Ultra Blue Test Strip 08/11 completed Not Available Not Available Not Available Vitals Date Recorded Oxygen saturation Respiratory rate Body temperature Heart rate Systolic And Diastolic Provider Name and Address Organization Details Last Updated DateTime 9 98 % 20 /min 99.3 [degF] 74 /min 172/80 mm[Hg] Not Available [facility] 9 14:06:20 Social History Question Answer Notes LastModified by Organizat ion Details LastModified Time Tobacco Smoking Status Never Smoker KADE Baez [address], [place], [address], [place] [facility] 08/11/2018 14:02:51 Do You Have An Advance Directive? Yes [email or web address] Information not available 08/11/2018 What Is Your Code Status? DNR [email or web address] Information not available 08/11/2018 Drugs Abused None [email or web address] Information not available 08/11/2018 Within The Past 12 Months, Has It Happened That The Food You Bought Just Didn't Last And You Didn't Have Money To Get More. Overweight [email or web address] Information not available 08/11/2018 Within The Past 12 Months, Have You Worried That Your Food Would Run Out Before You Got Money To Buy More. Yes [email or web address] Information not available 08/11/2018 Fall Risk: Do You Feel Unsteady When Standing Or Walking? Yes [email or web address] Information not available 08/11/2018 Marital Status [email or web address] Information not available 08/11/2018 What Was The Date Of Your Most Recent Tobacco Screening? 08/11/2018 Information not available 03/01/2019 Sex: Unknown Functional Status None recorded. Mental Status None recorded. Family History Relationship Description Onset Age of this Age Resolved Age Notes LastModified by Organization Details LastModified Time Mother Coronary arterioscler osis [email or web address] Not available 08/11 14:02:23 Medical History Condition Response Diabetes Y Coronary Artery Disease Y Pulmonary Embolism Y Hypertension Y COPD Y High Cholesterol Y Gynecological HistoryNo gynecological history recorded. Obstetrics History GPAL:G 0 P 0 0 0 0 Past Encounters Encounter ID Performer Location Encounter Start Date Encounter Closed Date Diagnosis/Indication Diagnosis SNOMED-CT Code Diagnosis ICD10 Code Diagnosis IMO Codes Diagnosis Note [id number] KADE Russell [facility] [address] [place] [address] 08/11/2018 13:54:34 08/22/2018 12:05:29 Edema of lower extremity 718950325 R60.0 Open wound of lower leg 347595792 S81.801A History of pulmonary embolus 360783707 Z86.711 Anticoagulant therapy 18 3640026 Z79.01 Health Concerns Section Related Observation LastModified by Organization Detai ls LastModified Time None Recorded Concern Status LastModified by Organization Details LastModified Time None Recorded Advance Directives Directive Y: Payers Insurance Date Sequence Insurance Name Policy Number Policy Silveira Covered Member ID Silveira Member ID Guarantor Name 08/16/2018 1 [facility] MEDIC[facility] ADVANTAGE PLAN (MEDICARE REPLACEMENT HMO) Molly Teixeira [id number] Molly Teixeira 08/16/2018 1 [place] Molly Teixeira [id number] Molly Teixeira 08/22/2018 1 [place] Molly Teixeira [id number] Molly Teixeira 08/16/2018 1 [facility] (MEDICARE REPLACEMENT/AD VANTAGE - HMO) Molly Teixeira [id number] Molly Teixeira 08/11/2018 1 [place] Molly Teixeira [id number] Molly Teixeira 08/11/2018 1 *SELF PAY* Molly Teixeira [id number] Molly Teixeira 08/16/2018 1 [place] Molly Teixeira [id number] Molly Teixeira 08/27/2018 1 [facility] - MEDICARE PREFERRED (MEDICARE REPLACEMENT HMO) HAMJUSTYNA Teixeira [id number] Molly Teixeira Notes Date Note Type Note Provider Name and Address Organization Details Recorded Time 08/11/2018 text/html This is a 67-year-old female with a significant history of diabetes, coronary artery disease, COPD, and pulmonary emboli who had a complex history of a fracture of the left lower extremity during April 2018 and who calls today for increased swelling of the left lower extremity. Patient reports fracture of the left lower extremity in April requiring ORIF which then became infected and required multiple surgeries and a prolonged hospitalization and rehabilitation stay. Patient was discharged from rehab approximately 1 week prior. Patient was not discharged on antibiotics and has not been taking antibiotics for the past 1 week. Patient has had a wound Vac in place for the past 6 weeks. The patient's home health nurse called today raising concern for significant increased edema of the left lower extremity. Patient reports worsening swelling over the past 1 week associated with increasing pain. Patient denies suspected febrile symptoms or measured fevers. Patient denies any new cough, chest pain, or shortness of breath. No repeat trauma to the left lower extremity recently. Patient had a INR 1.2 two days prior as well as this morning. Patient identified that she was taking the incorrect dosing of Coumadin over the past 2 days and says she was prescribed a 10 mg daily dosing of colon air but she was actually taking 4 mg of Coumadin daily. Patient is still taking Lovenox on a daily basis. KADE Clay [address], [place], [address], [place] [facility] 08/11/2018 15:19:14 OBGyn Episode No OBEpisode recorded.
--- OUTSIDE RECORDS SUMMARY | 2025-08-05 21:42 | XMS_ITS | Continuity of Care Document ---
Author Name Jose Anthony Address [address] [place] [address] Organization Unknown Address [address] [place] [address] Medications No known medications Problems No known problems
--- OUTSIDE RECORDS SUMMARY | 2025-08-05 21:42 | XMS_ITS | Encounter Summary ---
Author Organization [facility] Address [address] [place] [address] Care Team Providers Care Retail Experience Specialist Name Role Phone Cinthya Montiel MD Primary Care Provider [phone] Encounter Details Date Type Department Care Team (Late Contact Info) Description 10/29/2024 Lab Requisition [facility] - Main Lab [address] [facility] [place] [phone] Cinthya Montiel MD [address] [place] [address] [place] [address] Type 2 diabetes mellitus with diabetic chronic kidney disease ([facility] V24, [facility] V28) Social History Tobacco Use Types Packs/Day [...] Office Visit Gastroenterology - [address] [phone] Claudia Calvert [place] [address] [facility] [address] [place] [address] documented as of this encounter Procedures Procedure Name Priority Date/Time Associated Diagnosis Comments HEMOGLOBIN A1C Routine 12/03/2024 8:50 AM EDT Type 2 diabetes mellitus with diabetic chronic kidney disease ([facility]24, [facility] V28) COMPREHENSIVE METABOLIC PANEL Routine 12/03/2024 8:50 AM EDT Type 2 diabetes mellitus with diabetic chronic kidney disease ([facility] V24, [facility] V28) documented in this encounter Results * (ABNORMAL) Hemoglobin A1c (12/03/2024 8:50 AM EDT) Hemoglobin A1C 7.5(H) <6.5 % LAB CHEMISTRY METHOD 12/03/2024 1:54 PM EDT [facility] Mean Bld Glu Estim. 169 mg/dL LAB CHEMISTRY METHOD 12/03/2024 1:54 PM EDT [facility] Blood Venous blood specimen / Unknown Venipuncture / Unknown 12/03/2024 8:50 AM EDT 12/03/2024 9:25 AM EDT us Cinthya Montiel MD LAB BLOOD ORDERABLES Final Re sult [facility] [address] [place] [address], * (ABNORMAL) Comprehensive metabolic panel (12/03/2024 8:50 AM EDT) Sodium 138 133 - 145 mmol/L LAB CHEMISTRY METHOD 12/03/2024 11:36 AM EDT [facility] Potassium 4.3 3.5 - 5.5 mmol/L LAB CHEMISTRY METHOD 12/03/2024 11:36 AM EDT [facility] Chloride 107 96 - 110 mmol/L LAB CHEMISTRY METHOD 12/03/2024 11:36 AM EDT [facility] CO2 23 21 - 32 mmol/L LAB CHEMISTRY METHOD 12/03/2024 11:36 AM [facility] Anion Gap 8 3 - 11 LAB CHEMISTRY METHOD 12/03/2024 11:36 AM [facility] Glucose 128(H) 70 - 100 mg/dL LAB CHEMISTRY METHOD 12/03/2024 11:36 AM [facility] BUN 31(H) 5 - 25 mg/dL LAB CHEMISTRY METHOD 12/03/2024 11:36 AM [facility] Creatinine 1.57(H) 0.50 - 1.10 mg/dL LAB CHEMISTRY METHOD 12/03/2024 11:36 AM [facility] eGFR 34(L) >=60 mL/min/1. 73m2 LAB CHEMISTRY METHOD 12/03/2024 11:36 AM [facility] Comment:Calculation based on the Chronic Kidney Disease Epidemiology Collaboration (CKD-EPI) equation refit without adjustment for race. BUN/Creatinine Ratio 19.7 LAB CHEMISTRY METHOD 12/03/2024 11:36 AM [facility] Calcium 9.3 8.5 - 10.5 mg/dL LAB CHEMISTRY METHOD 12/03/2024 11:36 AM [facility] AST (SGOT) 10 10 - 42 unit/L LAB CHEMISTRY METHOD 12/03/2024 11:36 AM [facility] ALT (SGPT) 18 10 - 60 unit/L LAB CHEMISTRY METHOD 12/03/2024 11:36 AM [facility] Alkaline Phosphatase 62 42 - 121 unit/L LAB CHEMISTRY METHOD 12/03/2024 11:36 AM [facility] Total Protein 7.0 6.0 - 8.0 g/dL LAB CHEMISTRY METHOD 12/03/2024 11:36 AM [facility] Albumin 3.5 3.2 - 5.0 g/dL LAB CHEMISTRY METHOD 12/03/2024 11:36 AM [facility] Total Bilirubin 0.2 0.0 - 1.4 mg/dL LAB CHEMISTRY METHOD 12/03/2024 11:36 AM EDT [facility] Blood Venous blood specimen / Unknown Venipuncture / Unknown 12/03/2024 8:50 AM EDT 12/03/2024 9:27 AM EDT us Cinthya Montiel MD LAB BLOOD ORDERABLES Final Re sult [facility] [address] [place] [address], [place] [phone] documented in this encounter Visit Diagnoses Diagnosis Type 2 diabetes mellitus with diabetic chronic kidney disease (CMS/HCC V24, CMS/HCC V28) documented in this encounter Care Teams Retail Experience Specialist Relationship Specialty Start Date End Date Cinthya Montiel MD [address] PCP - General Internal Medicine 01/16/19 documented as of this encounter
--- OUTSIDE RECORDS SUMMARY | 2025-08-05 21:42 | XMS_ITS | Data Portability ---
Author Organization [facility] in [facility] Address [address] [place] [address] Care Team Providers Care Geographic Information Systems Analyst Name Role Phone [facility] CARE TEAM OTHER JAYLIN ROSS Primary Care Provider [phone] Assessment Encounter Date Assessment Date Assessment LastModified by Organization Details LastModified Time 02/13/2025 02/13/2025 I provided real -time medical direction via phone for this encounter, and was available for additional phone based assistance as needed. I have reviewed and agree with the Assessment and Plan as documented by the Concrete [employer] Dispatcher. We discussed the diagnostic uncertainty of home visits and the risk associated with this. In this case the patient was advised to be evaluated in the ED. She has an extensive cardiac history with worsening dizziness, VIVAS, nausea and epigastric discomfort. (+) orthostatic hypotension and multiple near syncopal events. She reports feeling worse than last November when she required hospital admission. While labs and EKG were reassuring, would benefit from medication adjustments, gentle hydration and trop/cardiac monitoring. The patient given the opportunity to ask questions. Patient in agreement for ED transfer. Report called ahead to [facility] and patient was transported via ambulance. [email or web address] Not available 02/13/2025 21:21:49 Plan of Treatment Reminders Order Date Submit Date Provider Last Modified By Organization Details Last Modified Time Details Appointments None recorded. Lab BMP, serum or plasma 2024 025 [facility], [address] [place] [address], [phone] 21:39:54 Referral None recorded. Procedures None recorded. Surgeries None recorded. Imaging electrocard iogram 2024 025 [facility], [address] [place] [address], [phone] 21:36:05 Medication Orders None recorded. Patient TargetsNo targets recorded. Patient InstructionsNo instructions recorded. Reason for Referral None Reported. Results Created Date Observation Date Name Description Value Unit Range Abnormal Flag Note LastModifiedBy Organization Detail LastModifiedTime 02/14/2002/13/2025 dinorah barrios am No observ ation record ed. [email or web address] [address], [phone] 02/13/2025 21:39:38 Result Notes None recorded. Medical Equipment None Reported. Allergies Allergen ID Allergen Name Allergen Category Reaction Reaction Severity Criticality Documentation Date Start Date Code Code System Note Provider Name and Address Organization Details Recorded Time 92592 Product containin g penicilli n (product) medicatio n Not available Not available Not available 02/13/2025 87109 8001 SNOMED Not Available [facility] - production 15:49:07 94335 codeine medicatio n Not available Not available Not available 02/13/2025 2670 RxNorm Not Available [facility] - production 15:49:07 63937 Substance with sulfonami de structure and antibacte rial mechanism of action (substanc e) medicatio n Not available Not available Not available 02/13/2025 96140 8003 SNOMED Not Available [facility] - production 15:49:07 Vitals Date Recorded Respiratory rate Body temperature Body height Heart rate Body weight Heart rate Oxygen saturation Systolic And Diastolic Systolic And Diastolic Provider Name and Address Organization Details Last Updated DateTime 5 18 /min 98 [degF] 144.78 cm 79 /min 14295.4 56 g 80 /min 97 % 107/71 mm[Hg] 93/64 mm[Hg] Not Available [facility] 19:16:52 Social History None recorded. Functional Status None recorded. Mental Status None recorded. Family History Nothing Reported. Medical History No medical history recorded. Gynecological HistoryNo gynecological history recorded. Obstetrics History GPAL:G 0 P 0 0 0 0 Past Encounters Encounter ID Performer Location Encounter Start Date Encounter Closed Date Diagnosis/Indication Diagnosis SNOMED-CT Code Diagnosis ICD10 Code Diagnosis IMO Codes Diagnosis Note [id number] RUPALI WATTERS NP, S [facility] [address] [place] [address] 02/13/2025 19:16:50 02/13/2025 22:15:35 Dizziness [id number] 37688 Health Concerns Section Related Observation LastModified by Organization Detai ls LastModified Time None Recorded Concern Status LastModified by Organization Details LastModified Time None Recorded Advance Directives Directive None Recorded Payers Insurance Date Sequence Insurance Name Policy Number Policy Silveira Covered Member ID Silveira Member ID Guarantor Name 08/05/2025 1 [facility] - MEDICARE PREFERRED (MEDICARE REPLACEMENT HMO) JAIDEN Teixeira [id number] Molly Teixeira Notes Date Note Type Note Provider Name and Address Organization Details Recorded Time 02/13/2025 text/html ROS as noted in the [facility] Nurse Triage Notes (Kaela Benz - RN): Reason For Request: Pt gets bloaded under breast down to belly button, headache and also has pain in back. pt is not urinating or deficating like she should. Pt is also getting frequent dizzy spells Denies: Sharp focal or diffuse abdominal pain Vomiting blood/coffee ground material Bloating, jaundice new onset with pain Nausea and vomiting greater than 2 hours with abdominal pain Tearing pain that radiates to back Food Impaction Chief Complaints: Abdominal Pain, Dizziness PMH: Chronic Kidney Disease, Hyperlipidemia, Hypertension, Hypothyroidism, Diabetes Mellitus Type 2, Anemia, Tonsillectomy PMH Reviewed at 02/13/2025 - 15:49 Allergies Reviewed at 02/13/2025 - 15:49 Comments: 74 y.o female complains of Abdominal Pain, Dizziness Patient calling in to place a referral. Patient endorses abdominal pain and bloating for 2-3 weeks. Patient reports around this time of day her abdomen becomes hyperdistended from under her breast to her belly button. She endorses abdominal pain, and severe cramping, symptoms worsen with food intake. She also reports lower back pain. Her LBM was today, but, it was small pieces , she reports the her bowels and urination have not been normal for some time. She states she has always had some dizziness, but it is now worse on a daily basis, she does not check her vital signs. Patient is followed her PCP, energy trading analyst(appt 02/25) and her GI doc (appt 03/27). Patient has had an upper and lower scope showed a hernia and duodenal ulcer. She has also done the capsule camera swallow which she is unsure of the results, but thinks they saw a mass. She would like to be evaluated. I provided information on the mobile health provider response time and advised the patient and/or caregiver to monitor reported signs and symptoms. I discussed the warning signs of when to seek emergency care. Con[employer] Dispatcher Organization Information for Nicole Yoder Business Legal Name: [employer]. Address: [address] [place] [address], Profiling Machine Set Up Operator: Darrell Lazaro MD CLIA No.: [id number] [employer] Dispatcher POC Test Results from Nicole Yoder iSTAT Chem8+ (19:32:20) Na: 140 mEq/L K: 3.7 mEq/L Cl: 104 mEq/L iCa: 1.22 mmol/L TCO2: 22 mmol/L Glu: 143 mg/dL BUN: 38 mg/dL Crea: 2.0 mg/dL Hct: 34 % Hb: 11.6 g/dL A mmol/L Cartridge Number: [id number] Attachments uploaded as part of this test result can be found under Documents section. EKG (19:48:26) EKG test performed. Attachments uploaded as part of this test result can be found under Documents section. .................... .................... .................... .................... .................... .................... .................... . Concrete [employer] Dispatcher Note From Nicole Yoder: Sent to a call for a pt [...] draw performed; Istat: Chem8+ results uploaded to [employer]; [facility] consulted and orders 12 lead ECG; 12 lead ECG: uploaded to [employer]. Pt is advised she should be transported to ED for further eval/treatment. Pt agrees to transport to [facility] ED. 911 called; [facility] .................... .................... .................... .................... .................... .................... .................... . [facility] Consulted: Rupali Watters .................... .................... .................... .................... .................... .................... .................... . Disposition: Fulfilled RUPALI WATTERS NP, [address] [facility],[address], [place], [address], CRYSTAL MAYA 02/13/2025 21:22:18 OBGyn Episode No OBEpisode recorded.
--- OUTSIDE RECORDS SUMMARY | 2025-08-05 21:42 | XMS_ITS | Patient Health Record ---
Author Organization [facility] Mariana Buenrostro Address [address] [place] [address] Care Team Providers Care Adoption Social Worker Name Role Phone Cinthya Montiel Primary Care Provider Unavailab Quentin Garcia Unavailable [phone] Cinthya Montiel Unavailable Unavailable Allergies Allergen (clinical drug ingredient) Drug/Non Drug Allergy documented on EMR Reaction Allergy Type Onset Date Status amoxicillin Amoxicillin rash Drug Allergy Act nain sulfamethoxazole / trimethoprim Bactrim Unknown Drug Allergy Active codeine Codeine Unknown Drug Allergy Active Results Component Value Reference Range Notes HEMOGLOBIN A1C (GLYCOHEMOGLO BIN) Reviewed date:09/28/2024 09:00:51 AM Interpretation: Performing Lab: Notes/Report: HEMOGLOBIN A1C % (HH) 7.3 HEMOGLOBIN A1C (GLYCOHEMOGLO BIN) Reviewed date:07/09/2025 11:37:22 AM Interpretation: Performing Lab: Notes/Report: HEMOGLOBIN A1C % (HH) 8.1 Reason For Referral Diagnosis 1 Type 2 diabetes jami itus with diabetic peripheral angiopathy without gangrene (E11.51) Diagnosis 2 Other hammer toe(s) (acquired), right foot (M20.41) Diagnosis 3 Other hammer toe(s) (acquired), left foot (M20.42) Diagnosis 4 Tinea unguium (B35.1 ) Diagnosis 5 Pain in left toe(s) (M79.675) Diagnosis 6 Pain in right toe(s) (M79.674) Diagnosis 7 Ingrowing nail (L60. 0) Diagnosis 8 Xerosis cutis (L85.3 ) Referring Provider First Name Cinthya Referring Provider Last Name Dinesh Referred Organization [facility] Referred Provider Quentin Hendrix Referred [facility] [address] [facility],[place],[address],[place] Referred Provider Specialty Podiatry Referral Priority Routine Medications Medication SIG (Take, Route, Frequency, Duration) Notes Start Date End Date Status Melatonin PRN Not-Taking Loratadine Active Sertraline HCl Not-T aking Chlorthalidone 25 MG 1 tablet in the morning with food Orally Once a day; Duration: 30 day(s) Active Nitroglycerin 0.3 mg PRN Activ e Claritin allergy Active NIFEdipine CR Osmotic Active Atorvastatin Calcium 20 MG 1 tablet Orally Once a day; Duration: 30 day(s) Active Losartan Potassium 50 MG 1 tablet Orally Twice a day Active Centrum MultiGummies Active Metoprolol Succinate 100 MG 1 capsule Orally Once a day; Duration: 30 day(s) Active HumaLOG KwikPen Acti ve Vitamin D Active Latanoprost Active Extra Depth Orthopedic Shoes, (1) Pair With (3) Pair Custom Heat Molded Multidensity Innersoles Dx: NIDDM/PVD(E11.51), Hammertoe Foot Deformity(M20.41,M20 .42), Preulcerative Skin Lesion(s)(L85.1) Wear Daily; Duration: 365 days Active Gabapentin 1 tablet Orally twice daily Active Omeprazole 40 MG 1 capsule 30 minutes before morning meal Orally twice a day Active Farxiga 10 MG 1 tablet Orally Once a day Active Sertraline HCl Zoloft Activ e Aspirin 81 81 MG 1 tablet Orally Once a day; Duration: 30 day(s) Active Lantus SoloStar 40 units Acti ve Urea 40 % 1 application to affected area on feet Externally Twice a day; Duration: 30 days 11/26/2022 Not-Taking Hydralazine-HCTZ Act nain Levothyroxine Sodium 112mg 1 x aday Active Immunizations Vaccine Route Administration Date Status Comme nts Influenza Unknown 04/08/2020 Administered Influenza Unknown 04/08/2022 Administered Influenza Unknown 04/08/2023 Administered Influenza Unknown 04/08/2024 Administered Influenza Unknown 05/10/2025 Administered COVID-19 Moderna Vaccine Unknown 11/21/2020 Administere d 1st 10/18/2020 Social History Tobacco Use: Social History Observation Description Date Details (start date - stop date) Never Smoker NA - NA Tobacco use other than smoking: Question Answer Notes Are you an other tobacco user? No Tobacco Control (Standard) Question Answer Notes Tobacco use: Nonsmoker Additional Findings: Tobacco non-user Current no nsmoker AUDIT-C (Standard) Question Answer Notes Did you have a drink containing alcohol in the p ast year? No Points 0 Interpretation Negative Problems Problem Type SNOMED Code ICD Code Onset Dates Problem Status W/U Status Risk Notes Problem Acquired hammer toe of right foot (9752897922913 105) Other hammer toe(s) (acquired), right foot (M20.41) Active confirmed Response to treatment,I mprovement Problem Type 2 diabetes mellitus with peripheral angiopathy (767810656) Type 2 diabetes mellitus with diabetic peripheral angiopathy without gangrene (E11.51) Active confirmed Problem Acquired hammer toe of left foot (1783914526753 103) Other hammer toe(s) (acquired), left foot (M20.42) Active confirmed Response to treatment,I mprovement Vital Signs Blood pressure diastolic 65 mm Hg 07/09/2025 Height 5ge09od in 07/09/2025 Blood pressure systolic 128 mm Hg 07/09/2025 Weight 167 lbs 07/09/2025 BMI 34.9 kg/m2 07/09/2025 Procedures Procedure Date Ordered Date Performed Result Body Sit e 00867-YJCHPMY NAIL, 6 OR MORE 09/28/2024 N/A 07176-NPTC SKIN LESIONS, OVER 4 09/28/2024 N/A 32565-IVJVCTM NAIL, 6 OR MORE 01/01/2025 N/A 00892-XNWG SKIN LESIONS, OVER 4 01/01/2025 N/A 04422-GYEPEKL NAIL, 6 OR MORE 03/26/2025 N/A 71039-AOKU SKIN LESIONS, OVER 4 03/26/2025 N/A 91083-CNNSHZJ NAIL, 6 OR MORE 07/09/2025 N/A 64528-HNVQ SKIN LESIONS, OVER 4 07/09/2025 N/A Encounters Encounter Location Date Provider Diagnosis [facility] [place] [address] [place] [address] 09/28/2024 Quentin Hendrix Type 2 diabetes mellitus with diabetic peripheral angiopathy without gangrene E11.51 ; Tinea unguium B35.1 ; Pain in right toe(s) M79.674 and Pain in left toe(s) M79.[address] [address] 01/01/2025 Quentin Hendrix Type 2 diabetes mellitus with diabetic peripheral angiopathy without gangrene E11.51 ; Other hammer toe(s) (acquired), right foot M20.41 ; Tinea unguium B35.1 ; Pain in right toe(s) M79.674 ; Pain in left toe(s) M79.675 and Other hammer toe(s) (acquired), left foot M20.[address] [address] 03/26/2025 Quentin Hendrix Type 2 diabetes mellitus with diabetic peripheral angiopathy without gangrene E11.51 ; Tinea unguium B35.1 ; Pain in right toe(s) M79.674 and Pain in left toe(s) M79.[address] [address] 07/09/2025 Quentin Hendrix Type 2 diabetes mellitus with diabetic peripheral angiopathy without gangrene E11.51 ; Tinea unguium B35.1 ; Pain in right toe(s) M79.674 ; Pain in left toe(s) M79.675 ; Other hammer toe(s) (acquired), right foot M20.41 and Other hammer toe(s) (acquired), left foot M20.42 Assessments Encounter Date Diagnosis (ICD Code) Assessment Notes Treatment Notes Treatment Clinical Notes Section Notes 09/28/2024 Type 2 diabetes mellitus with diabetic peripheral angiopathy without gangrene (ICD-10 - E11.51) 09/28/2024 Tinea unguium (ICD-10 - B35.1) 01/01/2025 Other hammer toe(s) (acquired), right foot (ICD-10 - M20.41) Patient Educated with: DIABETIC FOOT CARE INSTRUCTIONS.p df (DIABETIC FOOT CARE INSTRUCTIONS.p df) 01/01/2025 Type 2 diabetes mellitus with diabetic peripheral angiopathy without gangrene (ICD-10 - E11.51) 03/26/2025 Type 2 diabetes mellitus with diabetic peripheral angiopathy without gangrene (ICD-10 - E11.51) 03/26/2025 Tinea unguium (ICD-10 - B35.1) 07/09/2025 Type 2 diabetes mellitus with diabetic peripheral angiopathy without gangrene (ICD-10 - E11.51) 07/09/2025 Tinea unguium (ICD-10 - B35.1) 07/09/2025 Pain in right toe(s) (ICD-10 - M79.674) 03/26/2025 Pain in right toe(s) (ICD-10 - M79.674) 01/01/2025 Tinea unguium (ICD-10 - B35.1) 09/28/2024 Pain in right toe(s) (ICD-10 - M79.674) 09/28/2024 Pain in left toe(s) (ICD-10 - M79.675) 03/26/2025 Pain in left toe(s) (ICD-10 - M79.675) 01/01/2025 Pain in right toe(s) (ICD-10 - M79.674) 07/09/2025 Pain in left toe(s) (ICD-10 - M79.675) 01/01/2025 Pain in left toe(s) (ICD-10 - M79.675) 07/09/2025 Other hammer toe(s) (acquired), right foot (ICD-10 - M20.41) 01/01/2025 Other hammer toe(s) (acquired), left foot (ICD-10 - M20.42) 07/09/2025 Other hammer toe(s) (acquired), left foot (ICD-10 - M20.42) Plan Of Treatment Pending Test Test Name Order Date X ray : Foot, left 3V 02/16/2022 X ray : Foot, right 3V 02/16/2022 39778-WKERLML NAIL, 6 OR MORE 05/07/2022 95561-FICWIWW NAIL, 6 OR MORE 12/11/2021 13780-LSIWCEJ NAIL, 6 OR MORE 02/16/2022 27932-BJMSDCW NAIL, 6 OR MORE 06/13/2020 11423-SPDUIPG NAIL, 6 OR MORE 09/12/2020 46643-ZYNGZVM NAIL, 6 OR MORE 11/21/2020 45421-EPYKYKQ NAIL, 6 OR MORE 01/30/2021 89902-SSVBAPH NAIL, 6 OR MORE 04/28/2021 97442-DFASWWH NAIL, 6 OR MORE 07/10/2021 99172-JWGHCFG NAIL, 6 OR MORE 09/29/2021 41942-IGWJEZE NAIL, 6 OR MORE 07/13/2022 35764-KSVEIWL NAIL, 6 OR MORE 09/24/2022 00735-OTRUUZA NAIL, 6 OR MORE 11/26/2022 30161-HOGXGBD NAIL, 6 OR MORE 02/04/2023 53399-PEZDFXI NAIL, 6 OR MORE 06/21/2023 00702-YGOBNFI NAIL, 6 OR MORE 08/30/2023 52476-NTKFRDD NAIL, 6 OR MORE 11/15/2023 10789-KBWXMTI NAIL, 6 OR MORE 01/24/2024 77479-WWEMZCU NAIL, 6 OR MORE 04/03/2024 47963-DUNYLIO NAIL, 6 OR MORE 06/29/2024 98985-SFXRKVD NAIL, 6 OR MORE 09/28/2024 29533-SHNDGXM NAIL, 6 OR MORE 01/01/2025 85036-IOYNYDY NAIL, 6 OR MORE 03/26/2025 85996-ANXPBLW NAIL, 6 OR MORE 07/09/2025 07223-Yptalaqt Plate 06/29/2024 51162-Qcycqzan Plate 04/03/2024 93052-Xtsdyecy Plate 01/24/2024 91743-Ptmelohj Plate 11/15/2023 22010-Daykafew Plate 08/30/2023 30977-Wbrmgaqy Plate 06/21/2023 98206-Mjxhwmex Plate 02/04/2023 15131-Cvjkoyop Plate 11/26/2022 77195-Jlwbhfxs Plate 09/24/2022 45419-Ooacucrl Plate 07/13/2022 59251-Wjdjvajs Plate 09/29/2021 85323-Ciisilwe Plate 09/12/2020 36812-Xovkznih Plate 02/16/2022 40862-Snfltcnb Plate 12/11/2021 86074-Pdoldmfz Plate 05/07/2022 30757-Ohfkrdte Plate 06/13/2020 85963-Girytqpk Plate 07/10/2021 06603-Sqkfdqzc Plate Each Additional 10/2020 15068-Jtrghrxs Plate Each Additional 70099-Pzmkxokx Plate Each Additional 01/2022 74216-Anlgguut Plate Each Additional 07/2022 74454-Ocsczcfj Plate Each Additional 17298-Hnwbzddc Plate Each Additional 01/2022 80846-Gaclwuqq Plate Each Additional 45113-Catvrdlg Plate Each Additional 50086-Kxaabeik Plate Each Additional 89274-Ccunljla Plate Each Additional 11705-Mejltejz Plate Each Additional 24795-Wthshcxk Plate Each Additional 04/2024 34612-Iqzqasdt Plate Each Additional 75310-Babhboyl Plate Each Additional 74821-Jliyaelh Plate Each Additional 57346-LKVR SKIN LESIONS, OVER 4 06/29/20 24 00895-AZYC SKIN LESIONS, OVER 4 04/03/20 24 59750-UVZK SKIN LESIONS, OVER 4 07/09/20 16393-LCDN SKIN LESIONS, OVER 4 03/26/20 25 63835-UUVG SKIN LESIONS, OVER 4 01/02/20 25 32272-ADJO SKIN LESIONS, OVER 4 09/28/19 25 21367-OVLE SKIN LESIONS, OVER 4 01/24/20 24 02785-EZUP SKIN LESIONS, OVER 4 11/15/19 24 42278-PLKH SKIN LESIONS, OVER 4 08/30/19 24 47966-HEGT SKIN LESIONS, OVER 4 06/21/20 23 33406-PMLP SKIN LESIONS, OVER 4 02/05/20 23 75014-SHVP SKIN LESIONS, OVER 4 11/27/19 23 70997-DDCC SKIN LESIONS, OVER 4 09/24/19 67085-SPLW SKIN LESIONS, OVER 4 07/13/20 21170-JBAQ SKIN LESIONS, OVER 4 09/29/19 07098-AKIE SKIN LESIONS, OVER 4 07/10/20 38232-QUKB SKIN LESIONS, OVER 4 04/28/20 27545-MQIC SKIN LESIONS, OVER 4 02/05/20 21 34872-IMYD SKIN LESIONS, OVER 4 06/13/20 20 27440-FVJG SKIN LESIONS, OVER 4 01/31/20 21 54531-OHUH SKIN LESIONS, OVER 4 11/22/19 21 52820-NHSQ SKIN LESIONS, OVER 4 02/17/20 22 17386-ZTPD SKIN LESIONS, OVER 4 12/12/19 22 02874-YMWK SKIN LESIONS, OVER 4 05/07/20 22 Next Appt Details Provider Name:Quentin Gambino Simeon , 10/11/2025 12:15:00 PM, [address] [place], [address], Insurance Providers Payer Name Payer Address Payer Phone Subscriber Number Group Number Insured Name Patient Relationship to Insured Coverage Start Date Coverage End Date [employer] [employer] Medicare Preferred [address] [place] [address] [id number] Molly Teixeira Self - patient is the [...] kidney stones tonsillectomy colonoscopy 2020 endoscopy 2020 Hospitalization History Reason Date(Month/Year) ER- stomach issues 01/30 ER- stomach issues, shortness of breath 12/30
--- OUTSIDE RECORDS SUMMARY | 2025-08-05 21:42 | XMS_ITS | Data Portability ---
Author Organization [facility], Main Office Address [address] [facility] [place] [address] Care Team Providers Care Mental Tester Name Role Phone JONA CONLEY - 2ND FLOOR OTHER Assessment Encounter Date Assessment Date Assessment LastModified by Organization Details LastModified Time 07/10/2018 07/10/2018 07/06/18 WBC 5.4, Hgb 10.2, Hct 34, Na 138, K 4.5, BUN 18, Leather Scrubber 1.06 [email or web address] Not available 07/10/2018 15:10:58 07/17/2018 07/17/2018 07/13/18 WBC 8.2, Hgb 11, Hct 35.8, Na 137, K 4.3, BUN 16, Leather Scrubber 1.03 [email or web address] Not available 07/17/2018 14:19:22 07/27/2018 07/27/2018 07/23/18 WBC 8.1, Hgb 10, Hct 32.7, Na 136, K 4.6, BUN 10, Leather Scrubber 1 in hospital [email or web address] Not available 07/27/2018 [...] Address Organization Details Recorded Time Essential hypertension 76511234 Active 2017 DAMIAN KILLIAN [address], [address], [place], [address], [facility] 8 09:09:42 Gastroesophage al reflux disease without esophagitis 268369482 Active 2017 DAMIAN KILLIAN [address], [place], [address], [facility] 8 09:09:51 Fibromyalgia 767842855 Active 2017 DAMIAN KILLIAN [address], [place], [address], [facility] 8 09:10:02 Chronic kidney disease 888339049 Active 2017 DAMIAN KILLIAN [address], [place], [address], [facility] 8 09:10:13 Chronic bronchitis 12132326 Active 2017 DAMIAN KILLIAN [address], [place], [address], [facility] 8 09:10:23 Ward's esophagus 760117016 Active 2017 DAMIAN KILLIAN [address], [place], [address], [facility] 8 09:10:35 Psoriatic arthritis 109137293 Active 2017 DAMIAN KILLIAN [address], [place], [address], [facility] 8 09:13:13 Fall Active 2017 DAMIAN KILLIAN [address], [place], [address], [facility] 8 09:14:22 Fracture of tibial plateau 507696868 Active 2017 DAMIAN KILLIAN [address], [place], [address], [facility] 8 09:17:58 Type 2 diabetes mellitus 98099493 Active 2017 DAMIAN KILLIAN [address], [place], [address], [facility] 8 09:18:40 Anemia 349821538 Active 2017 DAMIAN KILLIAN [address], [place], [address], [place] [facility] 8 09:18:52 Acute retention of urine 832460284 Active 2017 DAMIAN KILLIAN [address], [place], [address], [place] [facility] 8 09:20:18 Anxiety 01852721 Active 2017 DAMIAN KILLIAN [address], [place], [address], [facility] 8 09:45:32 Hypothyroidism 05035620 Active 2017 DAMIAN KILLIAN [address], [place], [address], [facility] 8 09:48:27 Mixed hyperlipidemia 632749672 Active 2017 Lisandro Peng MD [address], [place], [address], [facility] 8 13:05:14 Wound dehiscence 959690253 Active 2017 DAMIAN KILLIAN [address], [place], [address], [facility] 8 10:50:12 Glaucoma 13708303 Active 2017 DAMIAN KILLIAN [address], [place], [address], [facility] 8 16:02:00 Pulmonary embolism 64239485 Active 2017 DAMIAN KILLIAN [address], [place], [address], [facility] 8 08:35:00 Problem Notes None recorded. Medical Equipment None Reported. Allergies Allergen ID Allergen Name Allergen Category Reaction Reaction Severity Criticality Documentation Date Start Date Code Code System Note Provider Name and Address Organization Details Recorded Time 61717 Product containin g penicilli n (product) medicatio n Not available Not available Not available 05/10/2018 08084 8001 SNOMED DAMIAN KILLIAN [address], [place], [address], [facility] 8 09:05:57 89802 codeine medicatio n Not available Not available Not available 05/10/2018 2670 RxNorm LOCO KILLIANP [address], [place], [address], [facility] 8 09:06:05 73357 Substance with sulfonami de structure and antibacte rial mechanism of action (substanc e) medicatio n Not available Not available Not available 05/10/2018 67638 8003 SNOMED LOCO KILLIANP [address] [facility], [address], [place], [address], [facility] 8 09:06:17 Vitals Date Recorded Oxygen saturation Heart rate Respiratory rate Body temperature Systolic And Diastolic Provider Name and Address Organization Details Last Updated DateTime 8 94 % 82 /min 18 /min 97.5 [degF] 128/74 mm[Hg] DAMIAN KILLIAN [address] [facility], [address], [place], [address], [facility] 8 15:07:36 Date Recorded Body temperature Heart rate Respiratory rate Oxygen saturation Systolic And Diastolic Provider Name and Address Organization Details Last Updated DateTime 8 97.3 [degF] 88 /min 18 /min 97 % 126/70 mm[Hg] DAMIAN KILLIAN [address], [place], [address], [facility] 8 14:08:48 Date Recorded Body temperature Heart rate Respiratory rate Oxygen saturation Systolic And Diastolic Provider Name and Address Organization Details Last Updated DateTime 8 97.9 [degF] 81 /min 18 /min 97 % 127/65 mm[Hg] DAMIAN KILLIAN [address] [facility], [address], [place], [address], [facility] 8 08:08:07 Date Recorded Systolic And Diastolic Provider Name and Address Organization Details Last Updated DateTime 07/28/2018 142/76 mm[Hg] Lisandro Peng MD [address] [facility], [address], [place], [address], [facility] 07/28/2018 09:48:35 Date Recorded Body temperature Heart rate Respiratory rate Oxygen saturation Systolic And Diastolic Provider Name and Address Organization Details Last Updated DateTime 8 98.2 [degF] 82 /min 18 /min 94 % 118/64 mm[Hg] DAMIAN KILLIAN [address] [facility], [facility] [address], [place], [address], [facility] 8 08:40:18 Social History Question Answer Notes LastModified by Organizat ion Details LastModified Time Tobacco Smoking Status Never Smoker Not Available [facility] 06/03/2020 03:13:23 Do You Have An Advance Directive? Yes DNR/DNI/DNH-n o Non Invasive Ventilation, No Dialysis, No Nutrition And No Hydration [id number] Information not available 06/03/2020 How Much Tobacco Do You Chew? None [id number] Information not available 06/03/2020 Do You Have A Medical Power Of Machine Carton Marker? No [id number] Information not available 06/03/2020 What Was The Date Of Your Most Recent Tobacco Screening? 08/04/2018 [id number] Information not available 06/03/2020 Sex: Unknown Functional Status Question Answer Note LastModified by Organization D etails LastModified Time What is your level of alcohol consumption? None [id number] Information not available 06/03/2020 Mental Status None recorded. Family History Nothing Reported Notes:N/C Medical History No medical history recorded. Gynecological HistoryNo gynecological history recorded. Obstetrics History GPAL:G 0 P 0 0 0 0 Immunizations Vaccine Type Date Status Note Provider Nam e and Address Organization Details Recorded Time influenza, unspecified formulation 04/18/2018 completed Leanne mcgraw, [facility] 11/17/2018 14:59:07 Past Encounters Encounter ID Performer Location Encounter Start Date Encounter Closed Date Diagnosis/Indication Diagnosis SNOMED-CT Code Diagnosis ICD10 Code Diagnosis IMO Codes Diagnosis Note [id number] DAMIAN KILLIAN [address] [address] 05/10/2018 08:58:32 05/12/2018 11:05:05 Fracture of tibial plateau 632685739 S82.142D PT/OT eval and treatNWB with knee immobilize r in [place] knee flexion lovenox 40 mg qd-continu e while in rehab and when discharged she will need to take ASA 325 mg qd until ortho saysoxycod one q 6 hrs prntylenol prndry dsg qd follow up with ortho-Dr Carey Acute rete ntion of urine 434773480 R33.8 attempt removal in 3-4 days-plann ed for tuesdayflom ax 0.4 mg qdmonitor output Anemia 373391688 D64.89 follow labs for possible need to transfuse Fall R29.6 PT/OT eval and treatmonit or for safety Type 2 kulwinder betes mellitus 60883034 E11.9 consistent carbohydra te dietSSIlan tus 10 units qdwill have A1c drawnmonit or for hypo/hyper glycemia Psoriatic arthritis 1563 16426 L40.59 monitor Chronic bronchitis 11523 004 J41.8 ventolin HFA q 4 hrs prnmonitor respirator y status Chronic ki dney disease 766768987 N18.3 avoid nephrotoxi c drugsbasel ine creatinine 1.5monitor labs Fibromyalgia 362556319 M 79.7 neurontin 600 mg bidwill increase night dose to 1200 mg as she takes at homemonito r pain Gastroesop hageal reflux disease without esophagitis 979203960 K21.9 omeprazole 20 mg bidmonitor for symptoms Essential hypertension 64507348 I10 low sodium dietatorva statin 20 mg qdlosartan 25 mg qdmetoprol ol succ 100 mg qdnifedipi ne 90 mg qdmonitor b/p and labs Anxiety 46332510 F41.1 xanax 0.5 mg bidpaxil 20 mg qdmonitor moodpsych eval and treat prn Hypothyroidism 53027230 E03.8 levothyrox ine 100 mcg qdmonitor TSHwill check with next draw [id number] Lisandro Ginette, MD [facility] [address] [address] 05/15/2018 12:46:54 05/23/2018 15:05:26 Fracture of tibial plateau 365805288 S82.112D s/p mechanical fall resulting in comminuted intraartic ular tibial plateau fracture left. Initially required external fixator and fasciotomy then eventual internal fixation. post op anemia required 2 units pRBC. follow ortho recs. monitor for pain control and constipati on. PT OT eval and treatloven ox 40 mg qd for DVT prophylaxi s Anemia due to blood loss 277928475 D50.0 required tx with 2 units pRBCrepeat cbc and monitor need for repeat tx Chronic ki dney disease 308060855 N18.3 monitor renal functionav oid nephrotoxi c meds Acute rete ntion of urine 740904895 R33.8 flomax 0.4 mg qdmonitor for sxfoley outurology eval prn Type 2 kulwinder betes mellitus 03013968 E11.9 lantus 10 units qdmonitor blood glucose Essential hypertension 61259484 I10 nifedipine 90 mg qdlosartan 25 mg qdmetoprol ol 100 mg qd Mixed hyperlipidemia 267 898616 E78.2 lipitor 20 mg qdcontinue Hypothyroidism 78889826 E03.8 synthroid 100 mcg qdmonitor tsh prn Ward's esophagus 3029 18432 K22.70 omeprazole 20 mg bidmonitor for sx control [id number] DAMIAN KILLIAN [facility] [address] [address] 05/25/2018 08:55:31 05/30/2018 12:30:35 Anemia 268697595 D64.89 labs stable at presentshe feels tiredfollo w labs Hypothyroidism 44146852 E03.8 levothyrox ine was 100 mcg qdTSH was 16.27 on 05/11/18inc reased levothyrox ine to 125 mcg qdwill recheck TSH in 4 weeks Type 2 kulwinder betes mellitus 34123822 E11.9 consistent carbohydra te dietSSIlan tus 10 units qdA1c is 7 on 05/11/18mon itor for hypo/hyper glycemia Dry eyes 192725240 H04.1 23 she is c/o dry eyesasking for natural tearswill order as neededmoni tor for resolution -may be allergic in nature and may need to switch it [id number] DAMIAN KILLIAN [address] [address] 06/02/2018 09:12:55 06/06/2018 10:51:41 Anxiety 51274855 F41.1 xanax 0.5 mg tidpaxil 20 mg qdmonitor moodpsych eval and treat prn Fibromyalgia 866017704 M 79.7 neurontin 600 mg bid and 1200 mg at hsmonitor pain Fracture o f tibial plateau 755210051 S82.142D NWB with knee immobilize r in [place] knee flexion lovenox 40 mg qd-continu e while in rehab and when discharged she will need to take ASA 325 mg qd until ortho saysoxycod one q 6 hrs prntylenol prndry dsg qdsurgical incision has necrotic areas-will have nurse call surgeon-un sure if they are aware follow up with ortho-Dr Carey [id number] DAMIAN KILLIAN [facility] [address] [address] 06/07/2018 08:06:03 06/09/2018 10:34:31 Anxiety 96573124 F41.1 xanax 0.25 mg bidpaxil 20 mg qdmonitor mooddoes not feel that she has increased anxietypsy ch eval and treat prn Fibromyalgia 799817075 M 79.7 neurontin 600 mg bid and 1200 mg at hsmonitor pain Fracture o f tibial plateau 783377007 S82.142D NWBkeep knee immobilize r off per orthono knee flexion lovenox 40 mg qdoxycodon e q 6 hrs prntylenol prndry dsg qdsurgical incision has necrotic areas-surg eons made aware-no brace on for now follow up with ortho-Dr Katherin schmidt this week [id number] DAMIAN KILLIAN [facility] [address] [address] 06/09/2018 08:45:10 06/12/2018 15:16:08 Fracture of tibial plateau 930230612 S82.142D NWB with knee immobilize r in [place] knee flexion ASA 325 mg qdoxycodon e q 6 hrs prntylenol prnwill see wound clinicfoll ow up with ortho-Dr Carey Acute rete ntion of urine 542578657 R33.8 flomax 0.4 mg qdfollow up with PCP Anemia 896126690 D64.89 stable at presentfol low up with PCP Type 2 kulwinder betes mellitus 49095739 E11.9 consistent carbohydra te dietlantus 10 units qdfollow up with PCP Psoriatic arthritis 1563 92417 L40.59 follow up with PCP Chronic bronchitis 24636 004 J41.8 ventolin HFA q 4 hrs prnfollow up with PCP Chronic ki dney disease 331572423 N18.3 avoid nephrotoxi c drugsbasel ine creatinine 1.5follow up with PCP Fibromyalgia 323203588 M 79.7 neurontin 600 mg q am and 1200 mg q hsfollow up with PCP Gastroesop hageal reflux disease without esophagitis 387802430 K21.9 omeprazole 20 mg bidfollow up with PCP Essential hypertension 17915425 I10 low sodium dietatorva statin 20 mg qdlosartan 25 mg qdmetoprol ol succ 100 mg qdnifedipi ne 90 mg qdfollow up with PCP Anxiety 28848409 F41.1 xanax 0.25 mg bidpaxil 20 mg qdfollow up with PCP Hypothyroidism 41354767 E03.8 levothyrox ine 125 mcg qdwill need a recheck of TSH in about 4 weeks follow up with PCP [id number] DAMIAN KILLIAN [address] [address] 06/16/2018 07:59:46 07/06/2018 13:52:19 Fall 9607888 R29.6 PT/OT eval and treatmonit or for safety Acute urin ninoska tract infection 242855598 N30.00 augmentin bid x 3 daysmonito r for resolution Hypothyroidism 30094860 E03.8 levothyrox ine 125 mcg qdwill need a recheck of TSH in about 4 weeks monitor labs Mixed hyperlipidemia 267 800722 E78.2 atorvastat in 20 mg qdmonitor labs Anxiety 03483103 F41.1 xanax 0.25 mg bidpaxil 20 mg qddiscusse d risk vs benefit of xanax and paxilmonit or moodpsych prn Anemia 989356818 D64.89 stable at presentmon itor labs Type 2 kulwinder betes mellitus 24889927 E11.9 consistent carbohydra te dietlantus 10 units qdmonitor for hypo/hyper glycemia Fracture o f tibial plateau 784453240 S82.142D NWBASA 325 mg qdoxycodon e q 6 hrs prntylenol prnwound clinicfoll ow up with ortho-Dr Carey Chronic ki dney disease 636054022 N18.3 avoid nephrotoxi c drugsbasel ine creatinine 1.5monitor labs Fibromyalgia 280591233 M 79.7 neurontin 600 mg q am and 1200 mg q hsdiscusse d risk vs benefit of neurontin monitor Gastroesop hageal reflux disease without esophagitis 312872594 K21.9 omeprazole 20 mg bidmonitor Essential hypertension 74200486 I10 low sodium dietlosart an 25 mg qdmetoprol ol succ 100 mg qdnifedipi ne 90 mg qdmonitor b/p and labs Acute rete ntion of urine 177448970 R33.8 flomax 0.4 mg qdmonitor [id number] Lisandro Peng MD [address] [address] 06/20/2018 13:57:59 07/06/2018 13:58:28 Dehiscence of surgical wound 06133497 T81.31XD see HPILLE wound dehiscence post prior external fixator and fasciotomy will await surgical recs and transfer to hospital for further interventi onmonitor not currently on Ab however awaiting transfer to hospital at this timecurren tly stablecont inue to monitor for change in presentati on Chronic ki dney disease 963331971 N18.3 see aboveavoid nephrotoxi c meds Anxiety 95352122 F41.1 currently due to upcoming surgical interventi onconsider meds prn Anemia 004179743 D50.8 see above Fracture o f tibial plateau 316391476 S82.112D See aboveiniti ally presented post mechanical fall resulting in comminuted intraartic ular tibial plateau fracture left [id number] [facility]AN [facility] [address] [place] [address] 06/26/2018 10:42:52 07/11/2018 12:04:09 Wound dehiscence 636501897 T81.32XD wound vac-change M-W-Flevaq uin 750 mg qd til 08/01/18ri fampin 300 mg bid til 08/01/18pr obioticmon itor sitefollow up with ID and surgeon Fracture o f tibial plateau 436802714 S82.142D NWBoxycodo ne 5 mg q 6 hrs prntylenol prnfollow up with ortho-Dr Carey Mixed hyperlipidemia 267 847809 E78.2 atorvastat in 20 mg qdmonitor labs Hypothyroidism 44073057 E03.8 levothyrox ine 125 mcg qdwill need a recheck of TSH in about 4 weeks monitor labs Anxiety 80710237 F41.1 xanax 0.25 mg bidpaxil 20 mg qddiscusse d risk vs benefit of xanax and paxilmonit or moodpsych prn Anemia 412348263 D64.89 stable at presentmon itor labs Type 2 kulwinder betes mellitus 16967810 E11.9 consistent carbohydra te dietlantus 10 units qdSSI x 1 week and reassessmo nitor for hypo/hyper glycemia Psoriatic arthritis 1563 12314 L40.59 monitor Ward's esophagus 3029 46543 K22.70 sees GIfollow up with GI as needed Chronic bronchitis 02929 004 J41.8 ventolin HFA q 4 hrs prnmonitor respirator y status Chronic ki dney disease 724034728 N18.3 avoid nephrotoxi c drugsbasel ine creatinine 1.5monitor labs Fibromyalgia 770916659 M 79.7 neurontin 300 mg q biddiscuss ed risk vs benefit of neurontin monitor Gastroesop hageal reflux disease without esophagitis 706935566 K21.9 omeprazole 20 mg bidmonitor Essential hypertension 59348114 I10 low sodium dietlosart an 25 mg qdmetoprol ol succ 100 mg qdnifedipi ne 90 mg qdmonitor b/p and labs Acute rete ntion of urine 550583986 R33.8 flomax 0.4 mg qdmonitor [id number] Daja Isaac [address] [place] [address] 07/03/2018 15:40:41 07/11/2018 12:09:27 Wound dehiscence 350201045 T81.32XD wound vac-change M-W-Flevaq uin 750 mg qd til 08/01/18ri fampin 300 mg bid til 08/01/18pr obioticmon itor sitefollow up with surgeon-& ID. Fracture o f tibial plateau 534292318 S82.142D NWBoxycodo ne 5 mg q 6 hrs prntylenol 650 q 4 hrs prnfollow up with ortho-Dr Carey Mixed hyperlipidemia 267 972831 E78.2 atorvastat in 20 mg qdmonitor labs Hypothyroidism 05255785 E03.8 levothyrox ine 125 mcg qdwill need a recheck of TSH in about 4 weeks monitor labs Anxiety 13609706 F41.1 xanax 0.25 mg bidpaxil 20 mg qdmonitor moodpsych eval prn. Anemia 676212202 D64.89 stable at presentmon itor labs Type 2 kulwinder betes mellitus 90730198 E11.9 consistent carbohydra te dietlantus 10 units qdSSI x 1 week and reassessmo nitor for hypo/hyper glycemia Psoriatic arthritis 1563 36570 L40.59 monitor Ward's esophagus 3029 42900 K22.70 sees GIfollow up with GI as needed Chronic bronchitis 06601 004 J41.8 ventolin HFA q 4 hrs prnmonitor respirator y status Chronic ki dney disease 713977321 N18.3 avoid nephrotoxi c drugsbasel ine creatinine 1.5monitor labs Fibromyalgia 363210510 M 79.7 neurontin 300 mg q bidmonitor pain. Gastroesop hageal reflux disease without esophagitis 964963270 K21.9 omeprazole 20 mg bidmonitor Essential hypertension 48686059 I10 low sodium dietlosart an 25 mg qdmetoprol ol succ 100 mg qdnifedipi ne 90 mg qdmonitor b/p and labs Acute rete ntion of urine 205808341 R33.8 flomax 0.4 mg qdmonitor for sx Acute diarrhea 775528864 R19.7 monitor for change in bowel habitssend for c diff if worsening [id number] VONDA DAMIAN BERNAL [facility] [address] [address] 07/10/2018 15:06:40 07/13/2018 12:07:23 Wound dehiscence 292102688 T81.32XD wound vac-change M-W-Flevaq uin 750 mg qd til 08/01/18ri fampin 300 mg bid til 08/01/18pr obioticmon itor sitefollow up with ID and surgeon Anxiety 23178456 F41.1 xanax 0.25 mg bidpaxil 20 mg qdmonitor moodpsych prn Gastroesop hageal reflux disease without esophagitis 815054496 K21.9 omeprazole 20 mg bidmonitor [id number] VONDADAMIAN RODRIGUEZ [facility] [address] [address] 07/17/2018 13:48:39 07/19/2018 14:11:24 Wound dehiscence 680976212 T81.32XD wound vac-change M-W-Flevaq uin 750 mg qd til 08/01/18ri fampin 300 mg bid til 08/01/18pr obioticfol low up with ID and surgeonort ho responsibl e for wound vac Fracture o f tibial plateau 048517626 S82.142D NWBoxycodo ne 5 mg q 6 hrs prntylenol prnfollow up with ortho-Dr Carey Mixed hyperlipidemia 267 446707 E78.2 atorvastat in 20 mg qdfollow up with PCP Hypothyroidism 42166238 E03.8 levothyrox ine 125 mcg qdwill need a recheck of TSH in about 3 weeks follow up with PCP Anxiety 15734519 F41.1 xanax 0.25 mg bidpaxil 20 mg qdfollow up with PCP Anemia 089335681 D64.89 stable at presentfol low up with PCP Type 2 kulwinder betes mellitus 35148769 E11.9 consistent carbohydra te dietlantus 10 units qdfollow up with PCP Psoriatic arthritis 1563 48129 L40.59 follow up with PCP Ward's esophagus 3029 93789 K22.70 sees GIfollow up with GI as needed Chronic bronchitis 88469 004 J41.8 ventolin HFA q 4 hrs prnfollow up with PCP Chronic ki dney disease 909544600 N18.3 avoid nephrotoxi c drugsbasel ine creatinine 1.5follow up with PCP Fibromyalgia 435919466 M 79.7 neurontin 300 mg q bidfollow up with PCP Gastroesop hageal reflux disease without esophagitis 441893861 K21.9 omeprazole 20 mg bidfollow up with PCP Essential hypertension 03284753 I10 low sodium dietlosart an 25 mg qdmetoprol ol succ 100 mg qdnifedipi ne 90 mg qdfollow up with PCP Acute rete ntion of urine 725452295 R33.8 flomax 0.4 mg qdfollow up with PCP [id number] DAMIAN KILLIAN [facility] [address] 07/27/2018 08:00:19 08/11/2018 13:41:31 Hypothyroidism 93894392 E03.8 levothyrox ine 125 mcg qd-does not appear that she was taking this-will reinstate itwill need a recheck of TSH in about 2 weeks monitor Pulmonary embolism 63586 003 I26.99 lovenox bridge with coumadinmo nitor INRlovenox 110 mg q 24 hrscoumadi n 5 mg qdmonitor respirator y status Wound dehiscence 6200140 08 T81.32XD wound vac-change M-W-Flevaq uin 750 mg qd til 08/01/18ri fampin 300 mg bid til 08/01/18pr obioticoxy codone 5 mg q 6 hrs prntylenol prnfollow up with ID and surgeonort ho responsibl e for wound vac Mixed hyperlipidemia 267 814233 E78.2 atorvastat in 20 mg qdmonitor labs Anxiety 80051065 F41.1 xanax 0.25 mg bidpaxil 20 mg qdspoke with patient with risk vs benefit of xanax and paxilmonit or anxietypsy ch eval and treat prn Anemia 752771208 D64.89 stable at presentmon itor labs Type 2 kulwinder betes mellitus 96651290 E11.9 consistent carbohydra te dietlantus 10 units qdSSImonit or for s/s of hypo/hyper glycemia Fall R29.6 PT/OT eval and treatmonit or for safety Chronic ki dney disease 335339980 N18.3 avoid nephrotoxi c drugsbasel ine creatinine 1.5monitor labs Fibromyalgia 785545139 M 79.7 neurontin 300 mg bidspoke with patient about risk vs benefit of neurontin monitor for pain Gastroesop hageal reflux disease without esophagitis 099247215 K21.9 omeprazole 20 mg bidmonitor for symptoms Essential hypertension 58440139 I10 low sodium dietlosart an 25 mg qdmetoprol ol succ 100 mg qdnifedipi ne 90 mg qdmonitor b/p and labs Chronic bronchitis 05963 004 J41.8 ventolin HFA q 4 hrs prnmonitor Glaucoma 73023014 H40.89 latanopros t 1 gtt both eyes qdmonitor Acute rete ntion of urine 620531551 R33.8 flomax 0.4 mg qdmonitor for retention [id number] Lisandro Peng MD [address] [place] [address] 07/28/2018 09:21:43 08/11/2018 13:45:42 Pulmonary embolism 90720761 I26.99 provoked PElovenox bridge with coumadinmo nitor and adjust coumadind/ c lovenox when > 2 Hypothyroidism 00309883 E03.8 significan t elevation of tshwill restart prior synthroid 125 mcg qdrecheck tsh in 4 weeks Wound dehiscence 0446756 08 T81.32XD wound infection post surgical repairLeva christa 750 mgrifampin 300 mg qd to complete courseadd probioticf ollow up with ortho and IDmonitor site Mixed hyperlipidemia 267 304003 E78.2 lipitor 20 mg qdcontinue Anxiety 34554399 F41.1 xanax 0.25 mg bidpaxil 20 mg qdspoke with patient with risk vs benefit of xanax and paxilmonit or anxietypsy ch eval and treat prn Anemia 317118013 D64.89 monitor cbc and need for tx Type 2 kulwinder betes mellitus 76298296 E11.9 consistent carbohydra te dietlantus 10 units qdSSImonit or for s/s of hypo/hyper glycemia Fall R29.6 PT/OT eval and treatmonit or fall risk Chronic ki dney disease 959070525 N18.3 baseline renal failuremon itor renal functionav oid nephrotoxi c meds as able Gastroesop hageal reflux disease without esophagitis 861770871 K21.0 baseline GERD with Barrettsom eprazole 20 mg bidmonitor for symptoms Essential hypertension 45378435 I10 losartan 25 mg qd metoprolol succ 100 mg qdnifedipi ne 90 mg qdmonitor b/p and labs Chronic bronchitis 74195 004 J41.8 ventolin HFA q 4 hrs prnmonitor Acute rete ntion of urine [id number] R33.8 hx of urinary retentionm aintained onflomax 0.4 mg qdmonitor for retention [id number] DAMIAN KILLIAN [facility] [address] [address] 08/04/2018 08:39:45 08/11/2018 14:31:57 Fracture of tibial plateau [id number] S82.142D NWBoxycodo ne 5 mg q 6 hrs prntylenol prnfollow up with ortho-Dr Carey Pulmonary embolism 96368 003 I26.99 lovenox bridge with coumadinmo nitor INRlovenox 110 mg q 24 hrscoumadi n 6.5 mg qdINR on Tuesdayfoll ow up with PCP Anemia [id number] D64.89 stable at presentfol low up with PCP Chronic ki dney disease [id number] N18.3 avoid nephrotoxi c drugsbasel ine creatinine 1.5follow up with PCP Mixed hyperlipidemia [id number] E78.2 atorvastat in 20 mg qdfollow up with PCP Hypothyroidism [id number] E03.8 levothyrox ine 100 mcg qdwill need TSH followed closelyfol low up with PCP 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 consistent carbohydra te dietlantus 10 units qdSSIfollo w up with PCP Fall R29.6 follow up with PCP Fibromyalgia [id number] M 79.7 neurontin 300 mg bidfollow up with PCP Gastroesop hageal reflux disease without esophagitis [id number] K21.9 omeprazole 20 mg bidfollow up with PCP Essential hypertension 61985913 I10 low sodium dietlosart an 25 mg qdmetoprol ol succ 100 mg qdnifedipi ne 90 mg qdfollow up with PCP Acute rete ntion of urine [id number] R33.8 flomax 0.4 mg qdfollow up with PCP Glaucoma 37637166 H40.89 latanopros t 1 gtt both eyes qdfollow up with PCP Anxiety 35025119 F41.1 xanax 0.25 mg bidpaxil 20 mg qdfollow up with PCP Chronic bronchitis 62412 004 J41.8 ventolin HFA q 4 hrs prnfollow up with PCP Wound dehiscence [id number] T81.32XD wound vac-change M-W-Foxyco done 5 [...] dialysis, no nutrition and no hydration Payers Insurance Date Sequence Insurance Name Policy Number Policy Silveira Covered Member ID Silveira Member ID Guarantor Name 08/11/[address] [facility] - MEDICARE PREFERRED (MEDICARE REPLACEMENT HMO) JAIDEN Molly Puneet [id number] 1 Molly Teixeira Notes Date Note Type [...] when she talks about her granddaughter. VONDA BERNAL, [employer] [address] [facility], [address], [place], [address], [facility] 07/10/2018 16:06:59 8 text/htm l A 67 [...] glaucoma, CKD. GERD, HTN and fibromyalgia. VONDA BERNAL, [employer] [address] [facility], [address], [place], [address], [employer] 07/17/2018 14:31:10 8 text/htm l A 67 year old female being seen for a initial intake note. She is well known to us for multiple stays due to a fracture of tibial plateau on left that ended up with infection and wound dehiscence. She presented to the [facility] er with chest pain and a [...] CKD, fibromyalgia and HTN. DAMIAN KILLIAN [address] [facility], [address], [place], [address], [facility] [employer] 07/27/2018 09:50:09 8 text/htm l Patient [...] care and therapy Lisandro Peng MD [address] [facility], [address], [place], [address], [facility] [employer] 07/28/2018 09:52:27 8 text/htm l A 67 year old female being seen for a discharge note. She is well known to us for multiple stays due to a fracture of tibial plateau on left that ended up with infection and wound dehiscence. She presented to the [facility] er with chest pain and a [...] CKD, fibromyalgia and HTN. DAMIAN KILLIAN [address] [facility], [address], [place], [address], [facility] - [employer] 08/04/2018 10:48:19 OBGyn Episode No OBEpisode recorded.
[2025-08-05] MEDS: Lactated Ringers 500 ML IV (22:30)
[2025-08-05 22:34] LABS: Hematocrit 28.9 % (37.0-47.0); Hemoglobin 8.7 g/dl (12.0-16.0)
--- NOTE | 2025-08-05 23:40 | ED.GENADULT ---
HPI - General Adult General Chief complaint: Dizziness Stated complaint: dizzy, nausea,tremors Time Seen by Provider: 08/05/25 20:16 Source: patient Limitations: no limitations History of Present Illness ED Provider: Rose Prieto PA-C HPI narrative: 74-year-old female with a history of iron deficiency anemia, diabetes, chronic kidney disease, hypertension, hyperlipidemia, hypothyroidism, who presents with vague dizziness. Patient states she feels ?off?. Associated malaise. Patient states last time she felt this way, she was a ?cardiac arrest?. Patient states she is discontinue the use of the iron to manage her anemia, she states the constipation is too bothersome. Denies recent cough or cold symptoms, fever, chest pain, shortness of breath or palpitations. Denies melena or bright red blood per rectum. Related Data Home Medications ?Medication ?Instructions ?Recorded ?Confirmed aspirin 81 mg tablet,delayed 81 mg PO DAILY 08/24/22 release (Adult Low Dose Aspirin) atorvastatin 20 mg tablet 20 mg PO DAILY 08/24/22 chlorthalidone 25 mg tablet 25 mg PO DAILY 08/24/22 dapagliflozin propanediol 5 mg mg PO 08/24/22 tablet (Farxiga) gabapentin 300 mg capsule mg PO 08/24/22 insulin lispro 100 unit/mL subcut 08/24/22 subcutaneous pen (Humalog KwikPen (U-100) Insulin) latanoprost 0.005 % eye drops 0 drp ophthalmic (eye) 08/24/22 levothyroxine 112 mcg tablet 112 mcg PO DAILY 08/24/22 losartan 50 mg tablet 50 mg PO BID 08/24/22 metoprolol succinate 100 mg 100 mg PO DAILY 08/24/22 tablet,extended release 24 hr nifedipine 90 mg tablet,extended 90 mg PO DAILY 08/24/22 release 24 hr nitroglycerin 0.3 mg sublingual mg sublingual 08/24/22 tablet omeprazole 40 mg capsule,delayed 40 mg PO BID 08/24/22 release sertraline 50 mg tablet 50 mg PO DAILY 08/24/22 Previous Rx's ?Medication ?Instructions ?Recorded oxycodone-acetaminophen 5 mg-325 1 tab PO Q6H PRN pain #15 tabs 10/01/22 mg tablet tramadol 50 mg tablet 50 mg PO Q6H PRN pain #20 tabs 01/18/24 Allergies Allergy/AdvReac Type Severity Reaction Status Date / Time codeine (CODEINE) Allergy Intermediate DIAPHORESIS/N/V/DIFFICULTY Verified 08/05/25 20:02 BREATHING/HIVES Penicillins (PENICILLINS) Allergy Intermediate RASH Verified 08/05/25 20:02 /ITCH/DIFFICULTY BREATHING Sulfa (Sulfonamide Allergy Intermediate RASH/ITCH/DIFFICULTY Verified 08/05/25 20:02 Antibiotics) (SULFA BREATHING (SULFONAMIDE ANTIBIOTICS)) Review of Systems Review of Systems: Yes all other systems are reviewed and are negative Constitutional: Constitutional: Reports fatigue, Denies fever(s), Denies headache(s) and Reports malaise ENT: Denies vertigo, Reports dizziness and Denies headache(s) Cardiovascular: Cardiovascular: Denies chest pain, Denies syncope, Denies palpitations and Denies dyspnea Respiratory: Respiratory: Denies cough and Denies dyspnea Gastrointestinal: Gastrointestinal: Denies abdominal pain, Denies melena, Denies hematochezia, Denies nausea and Denies vomiting Neurologic: Denies vertigo, Reports dizziness, Denies syncope and Denies headache(s) Endocrine: Endocrine: Reports fatigue and Denies palpitations FOR[facility]LY [facility], [facility] Past Medical History Attestation statement: The following information was validated with the patient. Medical History Kidney disease Diabetes Dry eyes High blood pressure High cholesterol Hx of thyroid disease Social History Social History Alcohol intake: never Patient Tobacco Use Status: Never used Tobacco Advance Directives: No Advance Directives Information Provided: No Current occupational status: retired and disabled 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 Physical Exam ED Vital Signs: Vital Signs - 24 hr 08/05/25 19:56 08/05/25 21:10 08/05/25 21:12 Temperature 98.3 F 97.7 F Pulse Rate 69 70 Respiratory Rate 19 Blood Pressure 139/54 L 142/64 H Pulse Oximetry 97 Oxygen Delivery Method Room Air 08/05/25 21:13 08/05/25 21:16 08/05/25 21:20 Temperature 98.3 F Pulse Rate 75 77 72 Respiratory Rate 18 Blood Pressure 118/42 L 120/50 L 132/65 Pulse Oximetry 98 Oxygen Delivery Method Room Air 08/05/25 23:52 Temperature 98.4 F Pulse Rate 70 Respiratory Rate 17 Blood Pressure 145/45 H Pulse Oximetry 98 Oxygen Delivery Method Room Air BMI result Body Mass Index 35.7 Const Other: Alert Orientation/consciousness: patient oriented x3 Resp Effort & Inspection: normal respiratory effort Cardio Other: Normal peripheral perfusion GI Other: Guaiac negative no melena no bright red blood per rectum stool brown Skin Other: Warm dry no rash Neuro General: patient oriented x3, gait normal, no focal motor deficits and CN's II-XI intact bilaterally Psych Other: Cooperative Course Reevaluation(s) Reevaluation #1: H&H stable, got fluids.....ambulation trial now Time: 23:42 Medications Administered Discontinued Medications Generic Name Dose Route Start Last Admin Trade Name Freq PRN Reason Stop Dose Admin Ferrous Sulfate 300 mg 08/06/25 00:28 08/06/25 00:36 Ferrous Sulfate 300 Mg/5 Ml Liquid PO 08/06/25 00:29 300 mg ONCE ONE Administration Lactated Ringer's 500 mls @ 500 mls/hr 08/05/25 22:30 08/05/25 23:42 Lr IV 08/05/25 23:29 Infused .Q1H RUPALI Infusion Medical Decision Making Medical Decision Making MDM Narrative: 74-year-old female with a history of iron deficiency anemia, diabetes, chronic kidney disease, hypertension, hyperlipidemia, hypothyroidism, who presents with vague dizziness. Patient states she feels ?off?. Associated malaise. Patient states last time she felt this way, she was a ?cardiac arrest?. Patient states she is discontinue the use of the iron to manage her anemia, she states the constipation is too bothersome. Denies recent cough or cold symptoms, fever, chest pain, shortness of breath or palpitations. Denies melena or bright red blood per rectum. Problem: Known iron deficiency anemia, diabetes, age History: Per patient I have considered the following differential diagnoses: Hypoglycemia, UTI, viral syndrome, ACS, anemia, upper GI bleed, lower GI bleed, dehydration, orthostasis, new arrhythmia Plan: Patient here with generalized symptoms of dizziness and malaise. Screening labs obtained, she is anemic, but not to the point of requiring a blood transfusion. She is guaiac negative. She needs to resume her iron therapy. She is not clinically dehydrated, she has no orthostasis. There was no new arrhythmia to account for her symptoms. ACS considered, troponin negative. She is not hypoglycemic she does not have a urinary tract infection, no viral syndrome. I do believe her anemia is driving her symptoms. We will send with strict instructions to follow up with primary care for repeat labs, and prescription for iron supplementation. I have independently reviewed the following tests: Labs: No leukocytosis, stable anemia 8.9 and 29.6, repeat H&H 8.7 and 28.9, no electrolyte abnormality, creatinine at baseline, troponin less than 2.7, viral panel negative, urine not infected, OBS negative EKG: Normal sinus rhythm, rate of 69, no ischemic changes no ectopy QTC 437 Differential Diagnosis Differential Diagnoses: The differential diagnosis associated with the presentation includes See MDM Admission/Observation Consideration of admission/observation: Escalation of care including admission/observation considered Not applicable Lab Data [facility] Lab Attestation statement: I reviewed the patient's lab results. 08/05/25 22:27 08/05/25 19:59 Labs: Lab Results 08/05/25 08/05/25 08/05/25 Range/Units 19:59 20:08 20:59 WBC 8.5 (4.8-10.8) X10*3/uL RBC 4.01 L (4.20-5.50) X10*6/uL Hgb 8.9 L D (12.0-16.0) g/dl Hct 29.6 L D (37.0-47.0) % MCV 73.8 L (80.0-98.0) fL MCH 22.2 L (27.0-33.0) pg MCHC 30.1 L (31.0-35.0) g/dl RDW 15.9 (11.0-16.0) % Plt Count 246 (160-400) X10*3/uL MPV 8.4 L (9.4-12.3) fL Immature Gran % (Auto) 0.4 (0.0-0.4) % Neut % (Auto) 68.8 (45-73) % Lymph % (Auto) 17.6 L (20-40) % [place] % (Auto) 8.7 (2-11) % Eos % (Auto) 3.2 (0-4) % Baso % (Auto) 1.3 (0-2) % Lymph # (Auto) 1.5 (1.2-4.9) X10*3/uL [place] # (Auto) 0.7 (0.1-1.2) X10*3/uL Eos # (Auto) 0.3 (0.0-0.4) X10*3/uL Baso # (Auto) 0.1 (0.0-0.2) X10*3/uL Abs Immat Gran (auto) 0.03 (0.00-0.03) X10*3/uL Absolute Neuts (auto) 5.9 (2.0-8.3) x10*3/uL Absolute Nucleated RBC 0.000 (0.0-0.012) X10*3/uL Nucleated RBC % (auto) 0.0 (0.0-0.2) /100WBC Sodium 141 (135-145) mmol/L Potassium 4.2 (3.3-5.1) mmol/L Chloride 108 (96-108) mmol/L Carbon Dioxide 24 (22-29) mmol/L Anion Gap 13 (12-20) BUN 29 H (9-16) mg/dL Creatinine 1.57 H (0.5-1.4) mg/dL Estim Creat Clear Calc 27.1 Estimated GFR 32 POC Glucose 143 H (60-115) mg/dL Random Glucose 159 H (60-115) mg/dL Calcium 9.4 (8.4-10.2) mg/dL Magnesium 1.9 (1.6-2.6) mg/dL Total Bilirubin 0.1 (0.0-1.0) mg/dL AST 18 (5-31) U/L ALT 17 (0-31) U/L Alkaline Phosphatase 71 (39-117) U/L Troponin I High Sens < 2.7 (<3.5-17.0) ng/L NT-Pro-B Natriuret Pep 255.6 (<300) pg/mL Total Protein 6.8 (6.5-8.0) g/dL Albumin 4.3 (3.5-5.0) g/dL Urine Color Urine Appearance Urine pH (5.0-9.0) Ur Specific [place] (1.005-1.025) Urine Protein (Neg-Trace) mg/dL Urine Glucose (UA) (Negative) mg/dL Urine Ketones (Negative) mg/dL Urine Blood (Negative) Urine Nitrite (Negative) Ur Leukocyte Esterase (Negative) Urine RBC (0-2) /HPF Urine WBC (0-5) /HPF Ur Squamous Epith Cells (0-2) /HPF Urine Bacteria (None Seen) Hyaline Casts (0-2) /LPF Stool Occult Blood NEGATIVE (NEGATIVE) Influenza Type A (PCR) NEGATIVE (Negative) Influenza Type B (PCR) NEGATIVE (Negative) RSV RNA Qual (PCR) NEGATIVE (Negative) SARS-CoV-2 RNA (RT-PCR) NEGATIVE (Negative) 08/05/25 08/05/25 Range/Units 21:03 22:27 WBC (4.8-10.8) X10*3/uL RBC (4.20-5.50) X10*6/uL Hgb 8.7 L (12.0-16.0) g/dl Hct 28.9 L (37.0-47.0) % MCV (80.0-98.0) fL MCH (27.0-33.0) pg MCHC (31.0-35.0) g/dl RDW (11.0-16.0) % Plt Count (160-400) X10*3/uL MPV (9.4-12.3) fL Immature Gran % (Auto) (0.0-0.4) % Neut % (Auto) (45-73) % Lymph % (Auto) (20-40) % [place] % (Auto) (2-11) % Eos % (Auto) (0-4) % Baso % (Auto) (0-2) % Lymph # (Auto) (1.2-4.9) X10*3/uL [place] # (Auto) (0.1-1.2) X10*3/uL Eos # (Auto) (0.0-0.4) X10*3/uL Baso # (Auto) (0.0-0.2) X10*3/uL Abs Immat Gran (auto) (0.00-0.03) X10*3/uL Absolute Neuts (auto) (2.0-8.3) x10*3/uL Absolute Nucleated RBC (0.0-0.012) X10*3/uL Nucleated RBC % (auto) (0.0-0.2) /100WBC Sodium (135-145) mmol/L Potassium (3.3-5.1) mmol/L Chloride (96-108) mmol/L Carbon Dioxide (22-29) mmol/L Anion Gap (12-20) BUN (9-16) mg/dL Creatinine (0.5-1.4) mg/dL Estim Creat Clear Calc Estimated GFR POC Glucose (60-115) mg/dL Random Glucose (60-115) mg/dL Calcium (8.4-10.2) mg/dL Magnesium (1.6-2.6) mg/dL Total Bilirubin (0.0-1.0) mg/dL AST (5-31) U/L ALT (0-31) U/L Alkaline Phosphatase (39-117) U/L Troponin I High Sens (<3.5-17.0) ng/L NT-Pro-B Natriuret Pep (<300) pg/mL Total Protein (6.5-8.0) g/dL Albumin (3.5-5.0) g/dL Urine Color Yellow Urine Appearance Clear Urine pH 6.0 (5.0-9.0) Ur Specific [place] 1.015 (1.005-1.025) Urine Protein 100 (2+) H (Neg-Trace) mg/dL Urine Glucose (UA) >=1000 H (Negative) mg/dL Urine Ketones Negative (Negative) mg/dL Urine Blood Negative (Negative) Urine Nitrite Negative (Negative) Ur Leukocyte Esterase Negative (Negative) Urine RBC 0-2 (0-2) /HPF Urine WBC 0-5 (0-5) /HPF Ur Squamous Epith Cells 0-2 (0-2) /HPF Urine Bacteria None Seen (None Seen) Hyaline Casts 0-2 (0-2) /LPF Stool Occult Blood (NEGATIVE) Influenza Type A (PCR) (Negative) Influenza Type B (PCR) (Negative) RSV RNA Qual (PCR) (Negative) SARS-CoV-2 RNA (RT-PCR) (Negative) Independent Interpretation I performed an independent interpretation of an: EKG Discharge Plan Discharge Clinical Impression: Dizziness, Anemia, iron deficiency Patient Disposition: Home, Self-Care Instructions: Lightheadedness (ED) Additional Instructions: You were found to be anemic, not at the point of transfusion. Given you have iron deficiency anemia, you need to initiate iron therapy. You need to follow up with your primary care provider, call today to schedule an appointment. You also need repeat blood counts within the next 2-3 days, to make sure your blood counts are not further dropping. I do believe this is the reason you are dizzy, your symptoms did improve with IV fluids. You had no additional lab abnormalities. You need to start taking an [id number] iron supplement, and use concurrent stool softener such as Colace, to prevent constipation. Purchase ferrous sulfate, take 100 mg twice daily. Prescriptions: No Action oxycodone-acetaminophen 5-325 mg tablet 1 tab PO Q6H PRN (Reason: pain) Qty: 15 0RF Rx Instructions: Partial Fill upon patient request. tramadol 50 mg tablet 50 mg PO Q6H PRN (Reason: pain) Qty: 20 0RF omeprazole 40 mg capsule,delayed release(DR/EC) 40 mg PO BID levothyroxine 112 mcg tablet 112 mcg PO DAILY metoprolol succinate 100 mg tablet extended release 24 hr 100 mg PO DAILY aspirin [Adult Low Dose Aspirin] 81 mg tablet,delayed release (DR/EC) 81 mg PO DAILY chlorthalidone 25 mg tablet 25 mg PO DAILY losartan 50 mg tablet 50 mg PO BID nifedipine 90 mg tablet extended release 24hr 90 mg PO DAILY gabapentin 300 mg capsule PO atorvastatin 20 mg tablet 20 mg PO DAILY insulin lispro [Humalog KwikPen Insulin] 100 unit/mL insulin pen subcut sertraline 50 mg tablet 50 mg PO DAILY latanoprost 0.005 % drops 0 drp ophthalmic (eye) Farxiga 5 mg tablet PO nitroglycerin 0.3 mg tablet, sublingual sublingual Interventions: ED Discharge Assessment Last Done: 08/06/25 00:32 Discharge Date/Time: 08/06/25 01:07 Print Language: Welsh
[2025-08-06 00:32] VITALS: BP 145/45; PULSE 70; RESP 17; TEMP 36.9; O2SAT 98
[2025-08-06] MEDS: Ferrous Sulfate 300 MG/5 ML LIQUID PO (00:36)
== END 2025-08-06 01:07 | disposition home or self-care (01) ==
PROVIDERS: Physician Assistant Medical; Emergency Provider Emergency Medicine; PCP Internal Medicine
DX: D50.9 Iron deficiency anemia, unspecified (principal); R42 Dizziness and giddiness; Z03.818 Encounter for observation for suspected exposure to other biological agents ruled out; Z79.899 Other long term (current) drug therapy
CPT/HCPCS: 36415; 80053; 81001; 82272; 82947; 83735; 83880; 84484; 85014; 85018; 85025; 87637; 93005; 96365; 99284; J7120

== ENCOUNTER → 2025-08-05 19:51 | Outpatient (BNV) | payer MEDICARE, SELFPAY | PROVIDERS: Emergency Provider Emergency Medicine; PCP Internal Medicine; Visit Provider Internal Medicine | DX: R42 Dizziness and giddiness (principal) | CPT/HCPCS: 93010 ==